=== PATIENT | male | born 1950 | race African-American/Black ===

== ENCOUNTER 2020-06-11 07:43 | Inpatient (IN) | payer MEDICARE, OTHER ==
[2020-06-11] MEDS ORDERED: hydrALAZINE 20 MG/ML VIAL ONE (08:29)
[2020-06-11 08:30] LABS: #Eosinphils 0.1 thou/uL (0.0-0.7); #Lymphocytes 0.8 thou/uL (1.20-3.40); #Monocytes 0.4 thou/uL (0.11-0.59); #Neutrophils 4.3 thou/uL (1.40-6.50); %Basophils 0.8 % (0.0-1.0); %Eosinophils 1.3 % (0.0-10.0); %Lymphocytes 13.9 % (21.0-51.0); %Monocytes 7.8 % (0.0-10.0); %Neutrophils 76.2 % (42.0-75.0); Hemoglobin 13.2 g/dL (14.0-18.0); Mean Corpuscular HGB CONC 33.4 g/dL (32.0-36.0); Mean Corpuscular Hemoglobin 29.6 pg (27.0-31.0); Mean Corpuscular Volume 88.7 fL (78.0-98.0); Mean Platelet Volume 9.7 fL (7.4-10.4); Platelet Count 170 thou/uL (130-400); RBC Distribution Width 15.5 % (11.5-14.5); Red Blood Cell (RBC) Count 4.47 mill/uL (4.70-6.10); White Blood Cell (WBC) Count 5.6 thou/uL (4.8-10.8)
[2020-06-11 08:34] LABS: Prothrombin Time 13.7 sec (12.0-14.7)
[2020-06-11 08:35] LABS: PTT 40.8 sec (22.9-36.1)
[2020-06-11 08:48] LABS: ALT (SGPT) 13 U/L (8-55); AST (SGOT) 19 U/L (5-34); Albumin 4.1 g/dL (3.4-4.8); Alkaline Phosphatase 101 U/L (40-110); Anion Gap 13 mmol/L (10-20); BUN (Urea Nitrogen) 50 mg/dL (8.4-25.7); Bilirubin, Total 0.4 mg/dL (0.2-1.2); Calc. Creatinine Clearance 0 mL/min (70-130); Calcium 8.8 mg/dL (7.8-10.44); Carbon Dioxide 20 mmol/L (23-31); Chloride 112 mmol/L (98-107); Globulin 3.2 g/dL (2.4-3.5); Glucose 89 mg/dL (80-115); Potassium 4.4 mmol/L (3.5-5.1); Protein, Total 7.3 g/dL (5.8-8.1); Sodium 141 mmol/L (136-145)
[2020-06-11 09:10] LABS: CKMB 1.5 ng/mL (0-6.6)
[2020-06-11] MEDS ORDERED: Aspirin Chewable 81 MG TAB ONE (10:11)
[2020-06-11] MEDS ORDERED: Bisacodyl 10 MG SUPP PR PRN (11:25)
[2020-06-11] MEDS ORDERED: Ondansetron PF 4 MG/2 ML Vial IVP PRN (11:25)
[2020-06-11] MEDS ORDERED: Guaifenesin DM 100-10/5 ML UDCUP PO PRN (11:25)
[2020-06-11] MEDS ORDERED: Ondansetron ODT 4 MG TAB PO PRN (11:25)
[2020-06-11] MEDS ORDERED: Senokot S 8.6-50 MG TAB PO PRN (11:25)
[2020-06-11] MEDS ORDERED: Acetaminophen 325 MG TAB PO PRN (11:25)
[2020-06-11] MEDS ORDERED: Loperamide HCl 2 MG CAP PO PRN (11:25)
[2020-06-11] MEDS ORDERED: Calcium Carbonate 500 MG ChewTAB PO PRN (11:25)
[2020-06-11 12:28] LABS: Troponin I 0.025 ng/mL (< 0.028)
[2020-06-11 14:11] VITALS: BMI 20.3
[2020-06-11 14:31] LABS: Bacteria/HPF None Seen HPF (None Seen); Bilirubin Negative (Negative); Blood, Urine Negative (Negative); Clarity Clear (Clear); Glucose, Urine (Dipstick) 500 mg/dL (Negative); Ketone, Urine Negative (Negative); Leukocyte Negative Leu/uL (Negative); Nitrite Negative (Negative); Protein, Urine (Dipstick) 30 mg/dL (Neg-Trace); RBC/HPF 0-3 HPF (0-3); Squamous Epithelial 0-3 HPF (0-3); Urobilinogen Normal mg/dL (Less than 2); WBC/HPF 0-3 HPF (0-3); pH, Urine 6.5 (5.0-9.0)
[2020-06-11 14:41] LABS: Amphetamine Not Detected (NotDetected); Barbiturates Screen Not Detected (NotDetected); Benzodiazepine Screen Not Detected (NotDetected); Cocaine Metabolite Screen Detected (NotDetected); Medtox Control Line Valid? VALID (VALID); Medtox Reader # READER 4; Methadone Not Detected (NotDetected); Methamphetamine Not Detected (NotDetected); Opiate Screen Not Detected (NotDetected); Oxycodone Screen Not Detected (NotDetected); Phencyclidine (PCP) Not Detected (NotDetected); THC/Cannabinoid Screen Not Detected (NotDetected); Tricyclic Screen Not Detected (NotDetected)
[2020-06-11 17:05] LABS: SARS-CoV-2 PCR by NAA Not Detected (NotDetected)
[2020-06-11] MEDS: Sodium Bicarbonate Tab 325 MG TAB PO SCH (20:31)
[2020-06-11] MEDS: Heparin 5,000 UNITS/ML VIAL SC SCH (20:32)
[2020-06-11] MEDS ORDERED: Atorvastatin Calcium 40 MG TAB PO SCH (21:00)
[2020-06-12 05:04] LABS: #Eosinphils 0.1 thou/uL (0.0-0.7); #Lymphocytes 0.8 thou/uL (1.20-3.40); #Monocytes 0.5 thou/uL (0.11-0.59); #Neutrophils 3.7 thou/uL (1.40-6.50); %Basophils 0.7 % (0.0-1.0); %Eosinophils 1.8 % (0.0-10.0); %Lymphocytes 15.2 % (21.0-51.0); %Monocytes 9.6 % (0.0-10.0); %Neutrophils 72.8 % (42.0-75.0); Hemoglobin 12.1 g/dL (14.0-18.0); Mean Corpuscular HGB CONC 32.1 g/dL (32.0-36.0); Mean Corpuscular Hemoglobin 28.7 pg (27.0-31.0); Mean Corpuscular Volume 89.3 fL (78.0-98.0); Mean Platelet Volume 9.6 fL (7.4-10.4); Platelet Count 176 thou/uL (130-400); RBC Distribution Width 15.5 % (11.5-14.5)
[2020-06-12 05:26] LABS: ALT (SGPT) 14 U/L (8-55); AST (SGOT) 15 U/L (5-34); Albumin 3.7 g/dL (3.4-4.8); Alkaline Phosphatase 89 U/L (40-110); Anion Gap 11 mmol/L (10-20); BUN (Urea Nitrogen) 39 mg/dL (8.4-25.7); Bilirubin, Total 0.4 mg/dL (0.2-1.2); Calc. Creatinine Clearance 26 mL/min (70-130); Calcium 8.1 mg/dL (7.8-10.44); Carbon Dioxide 20 mmol/L (23-31); Cardiac Risk 3.6 (Less than 4.5); Chloride 110 mmol/L (98-107); Cholesterol 167 mg/dl (< 200 Desired); Glucose 79 mg/dL (80-115); HDL Cholesterol 46 mg/dL (>60 Neg Risk); LDL Cholesterol, Calculated 106 mg/dL; Potassium 4.2 mmol/L (3.5-5.1); Protein, Total 6.7 g/dL (5.8-8.1); Sodium 137 mmol/L (136-145); Triglycerides 75 mg/dL (Less than 150)
[2020-06-12 05:43] LABS: Syphilis Antibody Nonreactive (Nonreactive); Syphilis Antibody Index 0.05 S/CO (<1.00 Non-Reactive)
[2020-06-12] MEDS ORDERED: Aspirin 325 mg Enteric Coated Tablet PO SCH (09:00)
[2020-06-12] MEDS ORDERED: FLU VACC QS2020-21(65YR UP)/PF 240 MCG/0.7 ML SYRINGE IM ONE (09:00)
[2020-06-12] MEDS: Amlodipine 5 MG TAB PO SCH (09:11)
[2020-06-12] MEDS: Heparin 5,000 UNITS/ML VIAL SC SCH ×2 (09:12→21:08)
[2020-06-12] MEDS: Sodium Bicarbonate Tab 325 MG TAB PO SCH ×2 (09:12→21:09)
[2020-06-12] MEDS: Zolpidem Tartrate 5 MG TAB PO PRN (21:00)
[2020-06-12] MEDS: Atorvastatin Calcium 40 MG TAB PO SCH (21:09)
[2020-06-13] MEDS: Heparin 5,000 UNITS/ML VIAL SC SCH ×2 (09:33→22:35)
[2020-06-13] MEDS: Amlodipine 5 MG TAB PO SCH (09:33)
[2020-06-13] MEDS: Aspirin 81 mg Enteric Coated Tablet PO SCH (09:33)
[2020-06-13] MEDS: Clopidogrel Bisulfate 75 MG TAB PO SCH (09:33)
[2020-06-13] MEDS: Sodium Bicarbonate Tab 325 MG TAB PO SCH ×2 (09:33→22:35)
[2020-06-13] MEDS: Atorvastatin Calcium 40 MG TAB PO SCH (22:35)
[2020-06-13] MEDS: HYDROcodone/Acetaminophen 5/325 mg Tablet PO PRN (22:40)
[2020-06-13] MEDS: Zolpidem Tartrate 5 MG TAB PO PRN (23:47)
[2020-06-14] MEDS: Aspirin 81 mg Enteric Coated Tablet PO SCH (09:33)
[2020-06-14] MEDS: Sodium Bicarbonate Tab 325 MG TAB PO SCH ×2 (09:33→20:22)
[2020-06-14] MEDS: Amlodipine 5 MG TAB PO SCH (09:33)
[2020-06-14] MEDS: Clopidogrel Bisulfate 75 MG TAB PO SCH (09:33)
[2020-06-14] MEDS: Heparin 5,000 UNITS/ML VIAL SC SCH ×2 (09:34→20:22)
[2020-06-14] MEDS: hydrALAZINE 20 MG/ML VIAL SLOW IVP PRN (15:27)
[2020-06-14] MEDS: HYDROcodone/Acetaminophen 5/325 mg Tablet PO PRN (20:21)
[2020-06-14] MEDS: Atorvastatin Calcium 40 MG TAB PO SCH (20:22)
[2020-06-15] MEDS: Aspirin 81 mg Enteric Coated Tablet PO SCH (09:04)
[2020-06-15] MEDS: Amlodipine 5 MG TAB PO SCH (09:04)
[2020-06-15] MEDS: Sodium Bicarbonate Tab 325 MG TAB PO SCH (09:05)
[2020-06-15] MEDS: Heparin 5,000 UNITS/ML VIAL SC SCH (09:05)
[2020-06-15] MEDS: Clopidogrel Bisulfate 75 MG TAB PO SCH (09:05)
[2020-06-15 15:31] VITALS: TEMP 98.4
[2020-06-15] MEDS: hydrALAZINE 20 MG/ML VIAL SLOW IVP PRN (15:53)
[2020-06-15 15:58] VITALS: BP 166/87
== END 2020-06-15 18:30 | disposition home health service (06) | DRG 65 ==
LOC: ERS 07:43 → ERHOLD 10:39 → 2SE 13:45
PROVIDERS: ADMIT Internal Medicine; ATTEND Internal Medicine
DX: I63.9 Cerebral infarction, unspecified (principal); G81.91 Hemiplegia, unspecified affecting right dominant side; N18.4 Chronic kidney disease, stage 4 (severe); I24.8 Other forms of acute ischemic heart disease; I12.9 Hypertensive chronic kidney disease with stage 1 through stage 4 chronic kidney disease, or unspecified chronic kidney disease; M19.90 Unspecified osteoarthritis, unspecified site; F17.210 Nicotine dependence, cigarettes, uncomplicated; E78.5 Hyperlipidemia, unspecified; Z20.822 Contact with and (suspected) exposure to COVID-19; F14.10 Cocaine abuse, uncomplicated; Z71.51 Drug abuse counseling and surveillance of drug abuser
CPT/HCPCS: 36415; 36416; 70450; 70551; 80053; 80061; 80306; 81001; 82553; 83090; 83970; 84484; 85025; 85610; 85730; 86780; 87635; 93005; 93306; 93880; 96374; J0360; J1644; U0003; U0005

== ENCOUNTER 2020-08-10 14:25 | Inpatient (IN) | payer MEDICARE, MEDICAID ==
[2020-08-10 15:21] LABS: #Eosinphils 0.1 thou/uL (0.0-0.7); #Lymphocytes 0.9 thou/uL (1.20-3.40); #Monocytes 0.4 thou/uL (0.11-0.59); #Neutrophils 3.9 thou/uL (1.40-6.50); %Basophils 0.4 % (0.0-1.0); %Eosinophils 1.4 % (0.0-10.0); %Lymphocytes 16.4 % (21.0-51.0); %Neutrophils 73.7 % (42.0-75.0); Hemoglobin 12.3 g/dL (14.0-18.0); Mean Corpuscular HGB CONC 32.6 g/dL (32.0-36.0); Mean Corpuscular Hemoglobin 28.6 pg (27.0-31.0); Mean Corpuscular Volume 87.6 fL (78.0-98.0); Platelet Count 182 thou/uL (130-400); RBC Distribution Width 14.4 % (11.5-14.5); Red Blood Cell (RBC) Count 4.29 mill/uL (4.70-6.10); White Blood Cell (WBC) Count 5.3 thou/uL (4.8-10.8)
[2020-08-10 15:36] LABS: PTT 41.8 sec (22.9-36.1); Prothrombin Time 13.4 sec (12.0-14.7)
[2020-08-10 15:39] LABS: Acetaminophen Less than 6.0 mcg/mL (10.0-30.0); Alcohol Less than 10 mg/dL (Less than 10); Salicylate Less than 8.0 mg/dL (15.0-30.0)
[2020-08-10 15:43] LABS: ALT (SGPT) 12 U/L (8-55); AST (SGOT) 16 U/L (5-34); Albumin 4.1 g/dL (3.4-4.8); Alkaline Phosphatase 113 U/L (40-110); Anion Gap 13 mmol/L (10-20); BUN (Urea Nitrogen) 27 mg/dL (8.4-25.7); Bilirubin, Total 0.5 mg/dL (0.2-1.2); CK (CPK) 80 U/L (30-200); Calc. Creatinine Clearance 0 mL/min (70-130); Calcium 9.1 mg/dL (7.8-10.44); Carbon Dioxide 23 mmol/L (23-31); Chloride 109 mmol/L (98-107); Globulin 2.8 g/dL (2.4-3.5); Glucose 99 mg/dL (80-115); Lipase 71 U/L (8-78); Potassium 4.3 mmol/L (3.5-5.1); Protein, Total 6.9 g/dL (5.8-8.1); Sodium 141 mmol/L (136-145)
[2020-08-10 15:57] LABS: Bacteria/HPF None Seen HPF (None Seen); Bilirubin Negative (Negative); Blood, Urine Negative (Negative); Clarity Clear (Clear); Glucose, Urine (Dipstick) Normal (Negative); Ketone, Urine Negative (Negative); Leukocyte Negative Leu/uL (Negative); Nitrite Negative (Negative); Protein, Urine (Dipstick) 30 mg/dL (Neg-Trace); RBC/HPF 0-3 HPF (0-3); Specific Gravity, Urine 1.022 (1.002-1.036); Squamous Epithelial 0-3 HPF (0-3); Urobilinogen Normal mg/dL (Less than 2); WBC/HPF 0-3 HPF (0-3)
[2020-08-10 16:04] LABS: Amphetamine Not Detected (NotDetected); Barbiturates Screen Not Detected (NotDetected); Benzodiazepine Screen Not Detected (NotDetected); Cocaine Metabolite Screen Detected (NotDetected); Medtox Reader # READER 1; Methadone Not Detected (NotDetected); Methamphetamine Not Detected (NotDetected); Opiate Screen Not Detected (NotDetected); Oxycodone Screen Not Detected (NotDetected); Phencyclidine (PCP) Not Detected (NotDetected); THC/Cannabinoid Screen Not Detected (NotDetected); Tricyclic Screen Not Detected (NotDetected)
[2020-08-10 16:05] LABS: Medtox Control Line Valid? VALID (VALID)
[2020-08-10] MEDS ORDERED: hydrALAZINE 20 MG/ML VIAL SLOW IVP PRN (18:17)
[2020-08-10 20:35] VITALS: BMI 19.7
[2020-08-10] MEDS: Nicotine 21 MG PATCH TD SCH (23:26)
[2020-08-10] MEDS: Sodium Chloride 0.9% 1,000 ML IV SCH (23:45)
[2020-08-11 00:49] LABS: SARS-CoV-2 NAA Rapid Test Not Detected (NotDetected)
[2020-08-11 05:46] LABS: Eosinophils 2 % (0-10); Hemoglobin 11.8 g/dL (14.0-18.0); Lymphocytes 17 % (21-51); MDiff Complete? YES; Mean Corpuscular HGB CONC 33.1 g/dL (32.0-36.0); Mean Corpuscular Hemoglobin 29.1 pg (27.0-31.0); Mean Corpuscular Volume 87.8 fL (78.0-98.0); Monocytes 3 % (0-10); Neutrophil 78 % (42-75); Platelet Count 158 thou/uL (130-400); Platelet Morphology Comment Appears Adequate; RBC Distribution Width 14.3 % (11.5-14.5); Red Blood Cell (RBC) Count 4.07 mill/uL (4.70-6.10)
[2020-08-11 05:51] LABS: Anion Gap 11 mmol/L (10-20); BUN (Urea Nitrogen) 19 mg/dL (8.4-25.7); Calc. Creatinine Clearance 31 mL/min (70-130); Calcium 8.9 mg/dL (7.8-10.44); Carbon Dioxide 24 mmol/L (23-31); Cardiac Risk 3.4 (Less than 4.5); Chloride 108 mmol/L (98-107); Cholesterol 150 mg/dl (< 200 Desired); Glucose 79 mg/dL (80-115); HDL Cholesterol 44 mg/dL (>60 Neg Risk); LDL Cholesterol, Calculated 90 mg/dL; Potassium 4.2 mmol/L (3.5-5.1); Sodium 139 mmol/L (136-145); Triglycerides 80 mg/dL (Less than 150)
[2020-08-11] MEDS: Cyanocobalamin (Vitamin B-12) 1,000 MCG TAB PO SCH (08:24)
[2020-08-11] MEDS: Aspirin 81 mg Enteric Coated Tablet PO SCH (08:24)
[2020-08-11] MEDS: Clopidogrel Bisulfate 75 MG TAB PO SCH (08:24)
[2020-08-11] MEDS: Folic Acid 1 MG TAB PO SCH (08:24)
[2020-08-11] MEDS: Sodium Chloride 0.9% 1,000 ML IV SCH (14:22)
[2020-08-11] MEDS: Nicotine 21 MG PATCH TD SCH (21:00)
[2020-08-12] MEDS: Sodium Chloride 0.9% 1,000 ML IV SCH ×2 (02:34→16:29)
[2020-08-12] MEDS: Aspirin 81 mg Enteric Coated Tablet PO SCH (09:41)
[2020-08-12] MEDS: Cyanocobalamin (Vitamin B-12) 1,000 MCG TAB PO SCH (09:42)
[2020-08-12] MEDS: Folic Acid 1 MG TAB PO SCH (09:42)
[2020-08-12] MEDS: Clopidogrel Bisulfate 75 MG TAB PO SCH (09:42)
[2020-08-12] MEDS: Amlodipine 10 MG TAB PO SCH (09:42)
[2020-08-12] MEDS: Atorvastatin Calcium 40 MG TAB PO SCH (21:31)
[2020-08-12] MEDS: Nicotine 21 MG PATCH TD SCH (21:31)
[2020-08-13] MEDS: Sodium Chloride 0.9% 1,000 ML IV SCH (05:18)
[2020-08-13 06:11] LABS: Anion Gap 9 mmol/L (10-20); BUN (Urea Nitrogen) 12 mg/dL (8.4-25.7); Calc. Creatinine Clearance 42 mL/min (70-130); Calcium 8.9 mg/dL (7.8-10.44); Carbon Dioxide 23 mmol/L (23-31); Chloride 110 mmol/L (98-107); Glucose 86 mg/dL (80-115); Magnesium 1.7 mg/dL (1.6-2.6); Potassium 3.7 mmol/L (3.5-5.1); Sodium 138 mmol/L (136-145)
[2020-08-13] MEDS: Clopidogrel Bisulfate 75 MG TAB PO SCH (09:43)
[2020-08-13] MEDS: Cyanocobalamin (Vitamin B-12) 1,000 MCG TAB PO SCH (09:43)
[2020-08-13] MEDS: Aspirin 81 mg Enteric Coated Tablet PO SCH (09:43)
[2020-08-13] MEDS: Amlodipine 10 MG TAB PO SCH (09:43)
[2020-08-13] MEDS: Folic Acid 1 MG TAB PO SCH (09:44)
[2020-08-13] MEDS: Atorvastatin Calcium 40 MG TAB PO SCH (19:45)
[2020-08-13] MEDS: Nicotine 21 MG PATCH TD SCH (19:45)
[2020-08-14] MEDS: Cyanocobalamin (Vitamin B-12) 1,000 MCG TAB PO SCH (09:26)
[2020-08-14] MEDS: Clopidogrel Bisulfate 75 MG TAB PO SCH (09:26)
[2020-08-14] MEDS: Amlodipine 10 MG TAB PO SCH (09:26)
[2020-08-14] MEDS: Aspirin 81 mg Enteric Coated Tablet PO SCH (09:26)
[2020-08-14] MEDS: Folic Acid 1 MG TAB PO SCH (09:27)
[2020-08-14] MEDS: Nicotine 21 MG PATCH TD SCH (20:00)
[2020-08-14] MEDS: Atorvastatin Calcium 40 MG TAB PO SCH (20:00)
[2020-08-15] MEDS: Aspirin 81 mg Enteric Coated Tablet PO SCH (09:13)
[2020-08-15] MEDS: Clopidogrel Bisulfate 75 MG TAB PO SCH (09:13)
[2020-08-15] MEDS: Folic Acid 1 MG TAB PO SCH (09:13)
[2020-08-15] MEDS: Cyanocobalamin (Vitamin B-12) 1,000 MCG TAB PO SCH (09:14)
[2020-08-15] MEDS: Amlodipine 10 MG TAB PO SCH (09:14)
[2020-08-15 16:14] VITALS: BP 120/79; TEMP 97.4
== END 2020-08-15 15:30 | disposition home health service (06) | DRG 917 ==
LOC: ERS 14:25 → 2SE 17:21
PROVIDERS: ADMIT Internal Medicine; ATTEND Internal Medicine
DX: T40.5X1A Poisoning by cocaine, accidental (unintentional), initial encounter (principal); I63.9 Cerebral infarction, unspecified; N18.4 Chronic kidney disease, stage 4 (severe); Z20.822 Contact with and (suspected) exposure to COVID-19; G81.11 Spastic hemiplegia affecting right dominant side; N17.9 Acute kidney failure, unspecified; R47.01 Aphasia; I12.9 Hypertensive chronic kidney disease with stage 1 through stage 4 chronic kidney disease, or unspecified chronic kidney disease; E78.00 Pure hypercholesterolemia, unspecified; M19.90 Unspecified osteoarthritis, unspecified site; F17.210 Nicotine dependence, cigarettes, uncomplicated; F14.10 Cocaine abuse, uncomplicated; E78.5 Hyperlipidemia, unspecified; W18.30XA Fall on same level, unspecified, initial encounter; R29.706 NIHSS score 6; M25.511 Pain in right shoulder; I16.0 Hypertensive urgency; R41.82 Altered mental status, unspecified; Z86.73 Personal history of transient ischemic attack (TIA), and cerebral infarction without residual deficits; Z79.01 Long term (current) use of anticoagulants; Z79.52 Long term (current) use of systemic steroids; Z79.899 Other long term (current) drug therapy
CPT/HCPCS: 36415; 36416; 51701; 70450; 70551; 71045; 80048; 80053; 80061; 80306; 80307; 81003; 81015; 82140; 82550; 83690; 83735; 83880; 84484; 85007; 85025; 85027; 85610; 85730; 93005; 93306; 93880; 95712; 95819; 95957; J0360; U0002; U0005

== ENCOUNTER 2020-11-02 13:32 | Inpatient (IN) | payer MEDICARE, MEDICAID ==
[~2020-11-02 13:32] MED LIST: Iopamidol-370 76% 500 ML 1 ML ONE
[2020-11-02 13:56] LABS: #Eosinphils 0.1 thou/uL (0.0-0.7); #Lymphocytes 0.8 thou/uL (1.20-3.40); #Monocytes 0.4 thou/uL (0.11-0.59); #Neutrophils 5.4 thou/uL (1.40-6.50); %Basophils 0.6 % (0.0-1.0); %Eosinophils 1.2 % (0.0-10.0); %Lymphocytes 11.9 % (21.0-51.0); %Monocytes 6.4 % (0.0-10.0); %Neutrophils 79.8 % (42.0-75.0); Hemoglobin 12.6 g/dL (14.0-18.0); Mean Corpuscular HGB CONC 33.3 g/dL (32.0-36.0); Mean Corpuscular Hemoglobin 28.5 pg (27.0-31.0); Mean Corpuscular Volume 85.7 fL (78.0-98.0); Mean Platelet Volume 10.1 fL (7.4-10.4); Platelet Count 138 thou/uL (130-400); RBC Distribution Width 15.8 % (11.5-14.5); Red Blood Cell (RBC) Count 4.43 mill/uL (4.70-6.10); White Blood Cell (WBC) Count 6.8 thou/uL (4.8-10.8)
[2020-11-02] MEDS ORDERED: EPINEPHrine 1 MG/ML VIAL ONE (14:00)
[2020-11-02 14:10] LABS: ALT (SGPT) 9 U/L (8-55); AST (SGOT) 13 U/L (5-34); Albumin 3.8 g/dL (3.4-4.8); Alkaline Phosphatase 102 U/L (40-110); Anion Gap 12 mmol/L (10-20); BUN (Urea Nitrogen) 22 mg/dL (8.4-25.7); Bilirubin, Total 0.4 mg/dL (0.2-1.2); Calc. Creatinine Clearance 0 mL/min (70-130); Calcium 9.2 mg/dL (7.8-10.44); Carbon Dioxide 23 mmol/L (23-31); Chloride 106 mmol/L (98-107); Globulin 3.3 g/dL (2.4-3.5); Glucose 95 mg/dL (80-115); Potassium 3.9 mmol/L (3.5-5.1); Protein, Total 7.1 g/dL (5.8-8.1); Sodium 137 mmol/L (136-145)
[2020-11-02 14:11] LABS: Acetaminophen Less than 6.0 mcg/mL (10.0-30.0); Alcohol Less than 10 mg/dL (Less than 10); Salicylate Less than 8.0 mg/dL (15.0-30.0)
[2020-11-02 14:37] LABS: Actual Bicarbonate (HCO3v) 22 mEq/L (22-28); Base Excess -2.3 mEq/L (-2.0 to +3.0); Calcium, Ionized (venous) 1.05 mmol/L (1.16-1.32); Chloride (VBG) 108 mmol/L (98-106); Hemoglobin (Hb) 13.7 g/dL (12.6-17.4); Potassium (VBG) 3.94 mmol/L (3.70-5.30); Sodium 136.9 mmol/L (133-146); pH (venous) 7.39 (7.32-7.43)
[2020-11-02 14:54] LABS: Bacteria/HPF None Seen HPF (None Seen); Bilirubin Negative (Negative); Blood, Urine Negative (Negative); Clarity Clear (Clear); Glucose, Urine (Dipstick) Normal (Negative); Ketone, Urine Negative (Negative); Leukocyte Negative Leu/uL (Negative); Nitrite Negative (Negative); Protein, Urine (Dipstick) 30 mg/dL (Neg-Trace); RBC/HPF 0-3 HPF (0-3); Specific Gravity, Urine 1.018 (1.002-1.036); Squamous Epithelial None Seen HPF (0-3); Urobilinogen Normal mg/dL (Less than 2); WBC/HPF 0-3 HPF (0-3)
[2020-11-02] MEDS ORDERED: Aspirin 300 MG Suppository ONE (14:54)
[2020-11-02 15:10] LABS: Amphetamine Not Detected (NotDetected); Barbiturates Screen Not Detected (NotDetected); Benzodiazepine Screen Not Detected (NotDetected); Cocaine Metabolite Screen Detected (NotDetected); Methadone Not Detected (NotDetected); Methamphetamine Not Detected (NotDetected); Opiate Screen Not Detected (NotDetected); Oxycodone Screen Not Detected (NotDetected); Phencyclidine (PCP) Not Detected (NotDetected); THC/Cannabinoid Screen Not Detected (NotDetected); Tricyclic Screen Not Detected (NotDetected)
[2020-11-02 17:24] LABS: SARS-CoV-2 NAA Rapid Test Not Detected (NotDetected)
[2020-11-02] MEDS ORDERED: Acetaminophen 650 MG Suppository PR PRN (17:49)
[2020-11-02] MEDS ORDERED: Bisacodyl 5 MG TAB PO PRN (17:49)
[2020-11-02] MEDS ORDERED: Senokot S 8.6-50 MG TAB PO PRN (17:49)
[2020-11-02] MEDS ORDERED: Ondansetron PF 4 MG/2 ML Vial IVP PRN (17:49)
[2020-11-02] MEDS ORDERED: hydrALAZINE 20 MG/ML VIAL SLOW IVP PRN (17:49)
[2020-11-02] MEDS: Sodium Chloride 0.9% 1,000 ML IV SCH (20:28)
[2020-11-02] MEDS: Heparin 5,000 UNITS/ML VIAL SC SCH (20:29)
[2020-11-02] MEDS: Atorvastatin Calcium 40 MG TAB PO SCH (21:16)
[2020-11-03] MEDS ORDERED: Dextrose 50% Abboject 50 ML SYRINGE SLOW IVP PRN ×2 (01:37→02:09)
[2020-11-03] MEDS ORDERED: Dextrose 5% in Water 1,000 ML IV PRN (01:37)
[2020-11-03 05:11] LABS: #Eosinphils 0.2 thou/uL (0.0-0.7); #Lymphocytes 0.9 thou/uL (1.20-3.40); #Monocytes 0.5 thou/uL (0.11-0.59); #Neutrophils 3.7 thou/uL (1.40-6.50); %Basophils 0.6 % (0.0-1.0); %Eosinophils 3.2 % (0.0-10.0); %Lymphocytes 16.5 % (21.0-51.0); %Monocytes 9.2 % (0.0-10.0); %Neutrophils 70.6 % (42.0-75.0); Hemoglobin 12.6 g/dL (14.0-18.0); Mean Corpuscular HGB CONC 33.9 g/dL (32.0-36.0); Mean Corpuscular Hemoglobin 28.9 pg (27.0-31.0); Mean Corpuscular Volume 85.2 fL (78.0-98.0); Mean Platelet Volume 10.3 fL (7.4-10.4); Platelet Count 165 thou/uL (130-400); RBC Distribution Width 15.8 % (11.5-14.5); Red Blood Cell (RBC) Count 4.36 mill/uL (4.70-6.10); White Blood Cell (WBC) Count 5.3 thou/uL (4.8-10.8)
[2020-11-03] MEDS: Sodium Chloride 0.9% 1,000 ML IV SCH ×2 (05:42→16:52)
[2020-11-03 05:43] LABS: Anion Gap 11 mmol/L (10-20); BUN (Urea Nitrogen) 15 mg/dL (8.4-25.7); Calc. Creatinine Clearance 30 mL/min (70-130); Calcium 8.8 mg/dL (7.8-10.44); Carbon Dioxide 21 mmol/L (23-31); Cardiac Risk 3.7 (Less than 4.5); Chloride 109 mmol/L (98-107); Cholesterol 163 mg/dl (< 200 Desired); Glucose 118 mg/dL (80-115); HDL Cholesterol 44 mg/dL (>60 Neg Risk); LDL Cholesterol, Calculated 104 mg/dL; Magnesium 2.2 mg/dL (1.6-2.6); Potassium 4.1 mmol/L (3.5-5.1); Sodium 137 mmol/L (136-145); Triglycerides 75 mg/dL (Less than 150)
[2020-11-03] MEDS ORDERED: Aspirin 81 mg Enteric Coated Tablet PO SCH (09:00)
[2020-11-03] MEDS: Heparin 5,000 UNITS/ML VIAL SC SCH ×2 (09:27→20:30)
[2020-11-03] MEDS: Dextrose 5 % And 0.9 % NaCl 1,000 ML IV SCH (17:01)
[2020-11-03] MEDS: Atorvastatin Calcium 40 MG TAB PO SCH (20:29)
[2020-11-04] MEDS: Sodium Chloride 0.9% 1,000 ML IV SCH ×2 (01:28→12:35)
[2020-11-04] MEDS: Heparin 5,000 UNITS/ML VIAL SC SCH ×2 (08:26→21:53)
[2020-11-04] MEDS: Aspirin 300 MG Suppository PR SCH (08:26)
[2020-11-04 10:23] LABS: Anion Gap 12 mmol/L (10-20); BUN (Urea Nitrogen) 14 mg/dL (8.4-25.7); Calc. Creatinine Clearance 31 mL/min (70-130); Calcium 9.1 mg/dL (7.8-10.44); Carbon Dioxide 20 mmol/L (23-31); Chloride 108 mmol/L (98-107); Glucose 103 mg/dL (80-115); Potassium 3.8 mmol/L (3.5-5.1); Sodium 136 mmol/L (136-145)
[2020-11-04] MEDS: Dextrose 5 % And 0.9 % NaCl 1,000 ML IV SCH (12:34)
[2020-11-05] MEDS: Atorvastatin Calcium 40 MG TAB PO SCH ×2 (04:20→21:14)
[2020-11-05] MEDS: Dextrose 5 % And 0.9 % NaCl 1,000 ML IV SCH (08:45)
[2020-11-05] MEDS: Aspirin 300 MG Suppository PR SCH (08:45)
[2020-11-05] MEDS: Cyanocobalamin (Vitamin B-12) 1,000 MCG TAB PO SCH (08:49)
[2020-11-05] MEDS: Folic Acid 1 MG TAB PO SCH (08:50)
[2020-11-05] MEDS: Lisinopril 10 MG TAB PO SCH ×3 (08:50→21:14)
[2020-11-05] MEDS ORDERED: Enoxaparin Sodium 40 MG/0.4 ML SYRINGE SC SCH (09:00)
[2020-11-05] MEDS ORDERED: Heparin 5,000 UNITS/ML VIAL SC SCH (09:00)
[2020-11-05] MEDS: Enoxaparin Sodium 40 MG/0.4 ML SYRINGE SC SCH (21:13)
[2020-11-06] MEDS: hydrALAZINE 20 MG/ML VIAL SLOW IVP PRN (00:53)
[2020-11-06] MEDS: Dextrose 5 % And 0.9 % NaCl 1,000 ML IV SCH ×2 (03:07→23:45)
[2020-11-06 04:56] LABS: #Eosinphils 0.1 thou/uL (0.0-0.7); #Lymphocytes 0.7 thou/uL (1.20-3.40); #Monocytes 0.3 thou/uL (0.11-0.59); #Neutrophils 2.3 thou/uL (1.40-6.50); %Basophils 0.7 % (0.0-1.0); %Eosinophils 3.2 % (0.0-10.0); %Lymphocytes 19.3 % (21.0-51.0); %Monocytes 9.5 % (0.0-10.0); %Neutrophils 67.4 % (42.0-75.0); Hemoglobin 12.3 g/dL (14.0-18.0); Mean Corpuscular HGB CONC 31.3 g/dL (32.0-36.0); Mean Corpuscular Hemoglobin 26.4 pg (27.0-31.0); Mean Corpuscular Volume 84.3 fL (78.0-98.0); Mean Platelet Volume 10.3 fL (7.4-10.4); Platelet Count 149 thou/uL (130-400); RBC Distribution Width 15.5 % (11.5-14.5); Red Blood Cell (RBC) Count 4.66 mill/uL (4.70-6.10); White Blood Cell (WBC) Count 3.5 thou/uL (4.8-10.8)
[2020-11-06 05:21] LABS: ALT (SGPT) 14 U/L (8-55); AST (SGOT) 22 U/L (5-34); Albumin 3.3 g/dL (3.4-4.8); Alkaline Phosphatase 90 U/L (40-110); Anion Gap 12 mmol/L (10-20); BUN (Urea Nitrogen) 15 mg/dL (8.4-25.7); Bilirubin, Total 0.5 mg/dL (0.2-1.2); Calc. Creatinine Clearance 32 mL/min (70-130); Carbon Dioxide 20 mmol/L (23-31); Chloride 110 mmol/L (98-107); Globulin 3.1 g/dL (2.4-3.5); Glucose 99 mg/dL (80-115); Potassium 3.7 mmol/L (3.5-5.1); Protein, Total 6.4 g/dL (5.8-8.1); Sodium 138 mmol/L (136-145)
[2020-11-06] MEDS: Aspirin 300 MG Suppository PR SCH (09:04)
[2020-11-06] MEDS: Folic Acid 1 MG TAB PO SCH (09:05)
[2020-11-06] MEDS: Lisinopril 10 MG TAB PO SCH (09:05)
[2020-11-06] MEDS: Cyanocobalamin (Vitamin B-12) 1,000 MCG TAB PO SCH (09:05)
[2020-11-06] MEDS: Clopidogrel Bisulfate 75 MG TAB PO SCH (09:05)
[2020-11-06] MEDS: Atorvastatin Calcium 40 MG TAB PO SCH (21:02)
[2020-11-06] MEDS: Enoxaparin Sodium 40 MG/0.4 ML SYRINGE SC SCH (21:02)
[2020-11-06] MEDS: Lisinopril 20 MG TAB PO SCH (21:03)
[2020-11-07] MEDS ORDERED: Senokot S 8.6-50 MG TAB PER TUBE PRN (09:00)
[2020-11-07] MEDS: Aspirin 300 MG Suppository PR SCH (11:32)
[2020-11-07] MEDS: Lisinopril 20 MG TAB PO SCH (11:36)
[2020-11-07] MEDS: Folic Acid 1 MG TAB PO SCH (11:37)
[2020-11-07] MEDS: Clopidogrel Bisulfate 75 MG TAB PO SCH (11:37)
[2020-11-07] MEDS: Cyanocobalamin (Vitamin B-12) 1,000 MCG TAB PO SCH (11:37)
[2020-11-07] MEDS: hydrALAZINE 20 MG/ML VIAL SLOW IVP PRN ×2 (11:46→21:54)
[2020-11-07] MEDS ORDERED: cloNIDine 0.1mg/24 Hour PATCH TD SCH (14:00)
[2020-11-07] MEDS ORDERED: ceFAZolin 2 GM/Dextrose 50 ML 2 GM in Premix Bag 1 BAG IVPB SCH (17:15)
[2020-11-07] MEDS ORDERED: Dextrose 50% Abboject 50 ML SYRINGE SLOW IVP SCH (18:45)
[2020-11-07] MEDS ORDERED: Dextrose 5%-Lactated Ringers 1,000 ML IV SCH (19:00)
[2020-11-07] MEDS ORDERED: [UNRECOGNIZED DRUG - OTHER] IV SCH (20:15)
[2020-11-07] MEDS ORDERED: DEXTROSE 70% IV SCH (20:15)
[2020-11-07] MEDS ORDERED: SODIUM CHLORIDE IV SCH ×2 (20:15→20:30)
[2020-11-07] MEDS ORDERED: WATER IV SCH ×2 (20:15→20:30)
[2020-11-07] MEDS ORDERED: DEXTROSE 10% IV SCH (20:30)
[2020-11-07] MEDS: Atorvastatin Calcium 40 MG TAB PER TUBE SCH (21:41)
[2020-11-07] MEDS: Lisinopril 20 MG TAB PER TUBE SCH (21:41)
[2020-11-07] MEDS: Enoxaparin Sodium 40 MG/0.4 ML SYRINGE SC SCH (21:43)
[2020-11-07] MEDS ORDERED: Labetalol HCl 100 MG/20 ML VIAL SLOW IVP SCH (23:27)
[2020-11-08 05:32] LABS: ALT (SGPT) 16 U/L (8-55); AST (SGOT) 26 U/L (5-34); Albumin 3.3 g/dL (3.4-4.8); Alkaline Phosphatase 93 U/L (40-110); Anion Gap 11 mmol/L (10-20); BUN (Urea Nitrogen) 9 mg/dL (8.4-25.7); Bilirubin, Total 0.4 mg/dL (0.2-1.2); Calc. Creatinine Clearance 30 mL/min (70-130); Calcium 8.6 mg/dL (7.8-10.44); Carbon Dioxide 19 mmol/L (23-31); Chloride 113 mmol/L (98-107); Globulin 2.8 g/dL (2.4-3.5); Glucose 527 mg/dL (80-115); Potassium 3.6 mmol/L (3.5-5.1); Protein, Total 6.1 g/dL (5.8-8.1); Sodium 139 mmol/L (136-145)
[2020-11-08] MEDS: hydrALAZINE 20 MG/ML VIAL SLOW IVP PRN (08:17)
[2020-11-08] MEDS ORDERED: ceFAZolin 2 GM/Dextrose 50 ML IVPB ONE (08:59)
[2020-11-08] MEDS ORDERED: Lidocaine 1% PF 5 ML VIAL ONE (09:32)
[2020-11-08] MEDS ORDERED: PROPOFOL 200 MG/20 ML VIAL ONE (09:32)
[2020-11-08] MEDS ORDERED: Ondansetron HCl/PF 4 MG/2 ML Vial IVP PRN (10:00)
[2020-11-08] MEDS ORDERED: Promethazine HCl 25 MG/ML VIAL IVPB PRN (10:00)
[2020-11-08] MEDS ORDERED: Promethazine HCl 25 MG/ML VIAL IM PRN (10:00)
[2020-11-08] MEDS: Lisinopril 20 MG TAB PER TUBE SCH ×2 (12:14→21:59)
[2020-11-08] MEDS: Folic Acid 1 MG TAB PER TUBE SCH (12:14)
[2020-11-08] MEDS: Cyanocobalamin (Vitamin B-12) 1,000 MCG TAB PER TUBE SCH (12:14)
[2020-11-08] MEDS: Clopidogrel Bisulfate 75 MG TAB PER TUBE SCH (12:15)
[2020-11-08] MEDS ORDERED: Acetaminophen 650 MG/20.3 ML UDCUP PER TUBE PRN (13:21)
[2020-11-08] MEDS: Aspirin 300 MG Suppository PR SCH (13:38)
[2020-11-08] MEDS ORDERED: Aspirin 325 MG TAB PER TUBE SCH (13:45)
[2020-11-08 14:12] VITALS: BMI 17.4
[2020-11-08 15:22] LABS: #Eosinphils 0.1 thou/uL (0.0-0.7); #Lymphocytes 0.6 thou/uL (1.20-3.40); #Monocytes 0.7 thou/uL (0.11-0.59); #Neutrophils 7.3 thou/uL (1.40-6.50); %Basophils 0.2 % (0.0-1.0); %Eosinophils 0.6 % (0.0-10.0); %Lymphocytes 6.9 % (21.0-51.0); %Monocytes 8.5 % (0.0-10.0); %Neutrophils 83.8 % (42.0-75.0); Hemoglobin 12.5 g/dL (14.0-18.0); Mean Corpuscular HGB CONC 34.3 g/dL (32.0-36.0); Mean Corpuscular Hemoglobin 28.9 pg (27.0-31.0); Mean Corpuscular Volume 84.1 fL (78.0-98.0); Mean Platelet Volume 10.4 fL (7.4-10.4); Platelet Count 125 thou/uL (130-400); RBC Distribution Width 15.1 % (11.5-14.5); Red Blood Cell (RBC) Count 4.34 mill/uL (4.70-6.10); White Blood Cell (WBC) Count 8.7 thou/uL (4.8-10.8)
[2020-11-08] MEDS: Enoxaparin Sodium 40 MG/0.4 ML SYRINGE SC SCH (21:59)
[2020-11-08] MEDS: Atorvastatin Calcium 40 MG TAB PER TUBE SCH (22:00)
[2020-11-09 05:53] LABS: #Eosinphils 0.1 thou/uL (0.0-0.7); #Lymphocytes 0.6 thou/uL (1.20-3.40); #Monocytes 0.5 thou/uL (0.11-0.59); #Neutrophils 6.2 thou/uL (1.40-6.50); %Basophils 0.2 % (0.0-1.0); %Eosinophils 1.2 % (0.0-10.0); %Lymphocytes 7.8 % (21.0-51.0); %Monocytes 7.2 % (0.0-10.0); %Neutrophils 83.5 % (42.0-75.0); Hemoglobin 11.8 g/dL (14.0-18.0); Mean Corpuscular HGB CONC 33.4 g/dL (32.0-36.0); Mean Corpuscular Hemoglobin 28.3 pg (27.0-31.0); Mean Corpuscular Volume 84.7 fL (78.0-98.0); Platelet Count 141 thou/uL (130-400); RBC Distribution Width 15.4 % (11.5-14.5); Red Blood Cell (RBC) Count 4.17 mill/uL (4.70-6.10); White Blood Cell (WBC) Count 7.5 thou/uL (4.8-10.8)
[2020-11-09] MEDS ORDERED: Aspirin 325 MG TAB PER TUBE SCH (09:00)
[2020-11-09] MEDS: Lisinopril 20 MG TAB PER TUBE SCH (10:50)
[2020-11-09] MEDS: Folic Acid 1 MG TAB PER TUBE SCH (10:54)
[2020-11-09] MEDS: Cyanocobalamin (Vitamin B-12) 1,000 MCG TAB PER TUBE SCH (10:54)
[2020-11-09] MEDS: Clopidogrel Bisulfate 75 MG TAB PER TUBE SCH (10:54)
[2020-11-09 17:03] VITALS: BP 131/79; TEMP 98
[2020-11-14] MEDS ORDERED: cloNIDine 0.1mg/24 Hour PATCH TD SCH (09:00)
== END 2020-11-09 18:30 | DRG 64 ==
LOC: ERS 13:32 → ERHOLD 15:05 → 2SE 19:16 → 3SE 11-08 13:00
PROVIDERS: ADMIT Internal Medicine; ATTEND Family Medicine
PROC: 0DH63UZ Insertion of Feeding Device into Stomach, Percutaneous Approach (ICD-10-PCS; principal; 2020-11-08)
DX: I63.512 Cerebral infarction due to unspecified occlusion or stenosis of left middle cerebral artery (principal); G92 Toxic encephalopathy; N17.9 Acute kidney failure, unspecified; E44.0 Moderate protein-calorie malnutrition; N18.4 Chronic kidney disease, stage 4 (severe); I50.30 Unspecified diastolic (congestive) heart failure; I13.0 Hypertensive heart and chronic kidney disease with heart failure and stage 1 through stage 4 chronic kidney disease, or unspecified chronic kidney disease; I69.951 Hemiplegia and hemiparesis following unspecified cerebrovascular disease affecting right dominant side; Z68.1 Body mass index [BMI] 19.9 or less, adult; I67.4 Hypertensive encephalopathy; Z20.822 Contact with and (suspected) exposure to COVID-19; R47.01 Aphasia; R29.728 NIHSS score 28; E78.5 Hyperlipidemia, unspecified; M19.90 Unspecified osteoarthritis, unspecified site; F17.210 Nicotine dependence, cigarettes, uncomplicated; F14.10 Cocaine abuse, uncomplicated; I63.312 Cerebral infarction due to thrombosis of left middle cerebral artery; R79.89 Other specified abnormal findings of blood chemistry; D63.1 Anemia in chronic kidney disease; E16.2 Hypoglycemia, unspecified; R73.9 Hyperglycemia, unspecified; R13.12 Dysphagia, oropharyngeal phase; I65.22 Occlusion and stenosis of left carotid artery; Z79.01 Long term (current) use of anticoagulants; Z79.82 Long term (current) use of aspirin; Z79.899 Other long term (current) drug therapy; Z82.3 Family history of stroke; Z83.3 Family history of diabetes mellitus; Z84.1 Family history of disorders of kidney and ureter; Z91.81 History of falling; T50.905A Adverse effect of unspecified drugs, medicaments and biological substances, initial encounter
CPT/HCPCS: 0240U; 36415; 36416; 51701; 70450; 70496; 70498; 70551; 71045; 74230; 80048; 80053; 80061; 80306; 80307; 81003; 81015; 82550; 82805; 83605; 83735; 84443; 84484; 85025; 85652; 87040; 87086; 93005; 93306; 95712; 95819; 95957; J0171; J0360; J0690; J1644; J1650; J2704; J7042; J7070; Q9967

== ENCOUNTER 2021-02-02 11:09 | Emergency (ER) | payer OTHER, MEDICARE, MEDICAID | END 2021-02-02 12:56 | disposition home or self-care (01) | LOC: ERS 11:09 | DX: Z04.3 Encounter for examination and observation following other accident (principal); I12.9 Hypertensive chronic kidney disease with stage 1 through stage 4 chronic kidney disease, or unspecified chronic kidney disease; N18.30 Chronic kidney disease, stage 3 unspecified; D63.1 Anemia in chronic kidney disease; F17.210 Nicotine dependence, cigarettes, uncomplicated | CPT/HCPCS: 99283 ==

== ENCOUNTER 2021-08-05 09:08 | Emergency (ER) | payer MEDICARE, MEDICAID ==
[2021-08-05 09:56] LABS: #Eosinphils 0.1 thou/uL (0.0-0.7); #Lymphocytes 0.6 thou/uL (1.20-3.40); #Monocytes 0.4 thou/uL (0.11-0.59); #Neutrophils 2.9 thou/uL (1.40-6.50); %Basophils 0.2 % (0.0-1.0); %Eosinophils 2.4 % (0.0-10.0); %Lymphocytes 14.5 % (21.0-51.0); %Monocytes 9.4 % (0.0-10.0); %Neutrophils 73.5 % (42.0-75.0); Hemoglobin 10.3 g/dL (14.0-18.0); Mean Corpuscular HGB CONC 32.2 g/dL (32.0-36.0); Mean Corpuscular Volume 89.9 fL (78.0-98.0); Mean Platelet Volume 8.3 fL (7.4-10.4); Platelet Count 135 thou/uL (130-400); Red Blood Cell (RBC) Count 3.56 mill/uL (4.70-6.10); White Blood Cell (WBC) Count 3.9 thou/uL (4.8-10.8)
[2021-08-05 10:18] LABS: ALT (SGPT) 27 U/L (8-55); AST (SGOT) 25 U/L (5-34); Albumin 3.2 g/dL (3.4-4.8); Alkaline Phosphatase 120 U/L (40-110); Anion Gap 10 mmol/L (10-20); BUN (Urea Nitrogen) 11 mg/dL (8.4-25.7); Bilirubin, Total 0.5 mg/dL (0.2-1.2); Calc. Creatinine Clearance 0 mL/min (70-130); Calcium 8.8 mg/dL (7.8-10.44); Carbon Dioxide 25 mmol/L (23-31); Chloride 104 mmol/L (98-107); Globulin 3.6 g/dL (2.4-3.5); Glucose 197 mg/dL (80-115); Potassium 3.4 mmol/L (3.5-5.1); Protein, Total 6.8 g/dL (5.8-8.1); Sodium 136 mmol/L (136-145)
== END 2021-08-05 10:32 | disposition home or self-care (01) ==
LOC: ERS 09:08
DX: R05.9 Cough, unspecified (principal); D64.9 Anemia, unspecified; E78.5 Hyperlipidemia, unspecified; M19.90 Unspecified osteoarthritis, unspecified site; Z86.73 Personal history of transient ischemic attack (TIA), and cerebral infarction without residual deficits; I10 Essential (primary) hypertension; F17.210 Nicotine dependence, cigarettes, uncomplicated
CPT/HCPCS: 36415; 71045; 80053; 85025

== ENCOUNTER 2021-12-18 06:19 | Inpatient (IN) | payer MEDICARE, MEDICAID ==
[2021-12-18] MEDS ORDERED: Rocuronium Bromide 10 MG/ML (10ML VIAL) ONE (06:36)
[2021-12-18] MEDS ORDERED: Propofol 1,000 MG/100 ML VIAL IV ONE ×2 (06:40→06:47)
[2021-12-18 07:20] LABS: #Basophils 0.1 thou/uL (0.0-0.2); #Eosinphils 0.2 thou/uL (0.0-0.7); #Lymphocytes 3.1 thou/uL (1.20-3.40); #Neutrophils 3.7 thou/uL (1.40-6.50); %Eosinophils 2.1 % (0.0-10.0); %Lymphocytes 38.3 % (21.0-51.0); %Monocytes 12.2 % (0.0-10.0); %Neutrophils 46.3 % (42.0-75.0); ALT (SGPT) 62 U/L (8-55); AST (SGOT) 55 U/L (5-34); Albumin 3.6 g/dL (3.4-4.8); Alkaline Phosphatase 142 U/L (40-110); Anion Gap 17 mmol/L (10-20); BUN (Urea Nitrogen) 16 mg/dL (8.4-25.7); Bilirubin, Total 0.4 mg/dL (0.2-1.2); CK (CPK) 156 U/L (30-200); Calc. Creatinine Clearance 0 mL/min (70-130); Calcium 9.7 mg/dL (7.8-10.44); Carbon Dioxide 21 mmol/L (23-31); Chloride 105 mmol/L (98-107); Estimated GFR 55; Globulin 4.1 g/dL (2.4-3.5); Glucose 204 mg/dL (80-115); Hemoglobin 11.2 g/dL (14.0-18.0); Magnesium 2.2 mg/dL (1.6-2.6); Mean Corpuscular HGB CONC 31.9 g/dL (32.0-36.0); Mean Corpuscular Hemoglobin 28.6 pg (27.0-31.0); Mean Corpuscular Volume 89.5 fL (78.0-98.0); Mean Platelet Volume 9.5 fL (7.4-10.4); Platelet Count 215 thou/uL (130-400); Potassium 4.1 mmol/L (3.5-5.1); Protein, Total 7.7 g/dL (5.8-8.1); RBC Distribution Width 14.8 % (11.5-14.5); Red Blood Cell (RBC) Count 3.93 mill/uL (4.70-6.10); Sodium 139 mmol/L (136-145)
[2021-12-18 07:28] LABS: Actual Bicarbonate (HCO3a) 20.7 mEq/L (22-28); Analyzer IN Cardio ER; CO2 Tension 32.8 mmHg (35.0-45.0); Calcium, Ionized (arterial) 1.18 mmol/L (1.12-1.30); Carboxyhemoglobin (COHb) 0.2 gm% (0.0-3.0); Hemoglobin (Hb) 11.2 g/dL (14.0-18.0); Potassium - ABG Lab 3.34 mmol/L (3.70-5.30); pH, Arterial 7.42 (7.35-7.45)
[2021-12-18 07:29] LABS: Puncture Site LRA
[2021-12-18 07:31] LABS: Bilirubin Negative (Negative); Blood, Urine Negative (Negative); Clarity Clear (Clear); Glucose, Urine (Dipstick) Normal (Negative); Ketone, Urine Negative (Negative); Leukocyte Negative Leu/uL (Negative); Nitrite Negative (Negative); Protein, Urine (Dipstick) 10 mg/dL (Neg-Trace); Urobilinogen Normal mg/dL (Less than 2); pH, Urine 6.5 (5.0-9.0)
[2021-12-18 08:01] LABS: SARS-CoV-2 NAA Rapid Test Not Detected (NotDetected)
[2021-12-18] MEDS ORDERED: levETIRAcetam 500 MG/5 ML VIAL SLOW IVP SCH (08:30)
[2021-12-18] MEDS ORDERED: Propofol 1,000 MG/100 ML VIAL IV PRN (08:30)
[2021-12-18] MEDS ORDERED: levETIRAcetam 500 MG/5 ML VIAL ONE ×2 (08:31→08:32)
[2021-12-18] MEDS ORDERED: Lorazepam 2 MG/ML VIAL ONE ×2 (08:43→10:13)
[2021-12-18] MEDS ORDERED: Vancomycin 1 GM in Premix Bag 1 BAG IVPB SCH (09:15)
[2021-12-18] MEDS ORDERED: Ondansetron ODT 4 MG TAB PO PRN (09:27)
[2021-12-18] MEDS ORDERED: Acetaminophen 500 MG TAB PO PRN (09:27)
[2021-12-18] MEDS ORDERED: Lorazepam 2 MG/ML VIAL SLOW IVP PRN (09:27)
[2021-12-18] MEDS ORDERED: Ondansetron PF 4 MG/2 ML Vial IVP PRN (09:27)
[2021-12-18] MEDS ORDERED: Electrolyte Replacement Protocol 1 EACH FS ONE (09:27)
[2021-12-18] MEDS ORDERED: Acetaminophen 650 MG Suppository PR PRN (09:27)
[2021-12-18] MEDS ORDERED: Ventilator Sedation Protocol 1 EACH FS ONE (09:27)
[2021-12-18] MEDS ORDERED: hydrALAZINE 20 MG/ML VIAL SLOW IVP PRN (09:27)
[2021-12-18] MEDS ORDERED: Famotidine/PF 20 mg/2ml Vial ONE (09:39)
[2021-12-18] MEDS ORDERED: Vancomycin 1 GM/200 ML BAG ONE (09:39)
[2021-12-18] MEDS ORDERED: Sodium Chloride 0.9% 100 ML ONE (09:39)
[2021-12-18] MEDS ORDERED: Cefepime 1 GM VIAL ONE (09:39)
[2021-12-18] MEDS: Sodium Chloride 0.9% 1,000 ML IV SCH ×2 (09:46→20:28)
[2021-12-18] MEDS: Famotidine/PF 20 mg/2ml Vial SLOW IVP SCH ×2 (09:46→20:30)
[2021-12-18] MEDS: Cefepime 1 GM in Sodium Chloride 0.9% 100 ML IVPB SCH ×2 (09:47→20:29)
[2021-12-18] MEDS ORDERED: NOREPINEPHRINE 8 MG/250 ML-D5W 250 ML ONE (10:06)
[2021-12-18] MEDS: Lisinopril 20 MG TAB PER TUBE SCH ×2 (10:12→20:32)
[2021-12-18 10:14] LABS: Troponin I 0.054 ng/mL (< 0.028)
[2021-12-18] MEDS ORDERED: NOREPINEPHRINE 8 MG/250 ML-D5W 250 ML IVPB SCH (10:15)
[2021-12-18] MEDS ORDERED: Fentanyl CADD 100 ML IV SCH (10:45)
[2021-12-18 13:25] LABS: Troponin I 0.066 ng/mL (< 0.028)
[2021-12-18] MEDS ORDERED: FLU VACC QS2022-23(65YR UP)/PF 240 MCG/0.7 ML SYRINGE IM ONE (16:00)
[2021-12-18 16:25] LABS: Lactic Acid 2.1 mmol/L (0.5-2.2)
[2021-12-18 17:58] LABS: Lactic Acid 2.1 mmol/L (0.5-2.2)
[2021-12-18] MEDS: levETIRAcetam 500 MG/5 ML VIAL SLOW IVP SCH (20:30)
[2021-12-19 04:10] LABS: #Lymphocytes 0.7 thou/uL (1.20-3.40); #Monocytes 0.6 thou/uL (0.11-0.59); #Neutrophils 3.4 thou/uL (1.40-6.50); %Basophils 0.2 % (0.0-1.0); %Eosinophils 0.5 % (0.0-10.0); %Lymphocytes 14.2 % (21.0-51.0); %Neutrophils 73.1 % (42.0-75.0); Hemoglobin 8.6 g/dL (14.0-18.0); Mean Corpuscular HGB CONC 32.7 g/dL (32.0-36.0); Mean Corpuscular Volume 85.6 fL (78.0-98.0); Mean Platelet Volume 9.5 fL (7.4-10.4); Platelet Count 146 thou/uL (130-400); RBC Distribution Width 14.8 % (11.5-14.5); Red Blood Cell (RBC) Count 3.06 mill/uL (4.70-6.10); White Blood Cell (WBC) Count 4.6 thou/uL (4.8-10.8)
[2021-12-19 04:27] LABS: ALT (SGPT) 40 U/L (8-55); AST (SGOT) 38 U/L (5-34); Albumin 2.8 g/dL (3.4-4.8); Alkaline Phosphatase 104 U/L (40-110); Anion Gap 11 mmol/L (10-20); BUN (Urea Nitrogen) 13 mg/dL (8.4-25.7); Bilirubin, Total 0.6 mg/dL (0.2-1.2); Calc. Creatinine Clearance 56 mL/min (70-130); Calcium 8.5 mg/dL (7.8-10.44); Carbon Dioxide 20 mmol/L (23-31); Chloride 112 mmol/L (98-107); Estimated GFR 87; Globulin 3.1 g/dL (2.4-3.5); Glucose 83 mg/dL (80-115); Magnesium 1.6 mg/dL (1.6-2.6); Potassium 3.6 mmol/L (3.5-5.1); Protein, Total 5.9 g/dL (5.8-8.1); Sodium 139 mmol/L (136-145)
[2021-12-19] MEDS: Sodium Chloride 0.9% 1,000 ML IV SCH ×2 (05:48→14:49)
[2021-12-19 07:43] LABS: Actual Bicarbonate (HCO3a) 20.9 mEq/L (22-28); Base Excess (BEa) -1.9 mEq/L (-2.0 to +3.0); CO2 Tension 27.9 mmHg (35.0-45.0); Calcium, Ionized (arterial) 1.16 mmol/L (1.12-1.30); Carboxyhemoglobin (COHb) 0.1 gm% (0.0-3.0); Hemoglobin (Hb) 7.9 g/dL (14.0-18.0); O2 Tension (PaO2), arterial 130.2 mmHg (> 80.0); Potassium - ABG Lab 3.51 mmol/L (3.70-5.30); pH, Arterial 7.49 (7.35-7.45)
[2021-12-19 07:49] LABS: ALV-art Gradient 120.125 mmHg (0-20); Puncture Site RBA
[2021-12-19] MEDS ORDERED: Magnesium 2 GM/50 ML(in water) 2 GM in Premix Bag 1 BAG IVPB SCH (08:30)
[2021-12-19] MEDS: Lisinopril 20 MG TAB PER TUBE SCH ×2 (08:36→20:25)
[2021-12-19] MEDS: levETIRAcetam 500 MG/5 ML VIAL SLOW IVP SCH ×2 (08:37→20:25)
[2021-12-19] MEDS: Famotidine/PF 20 mg/2ml Vial SLOW IVP SCH ×2 (08:37→20:25)
[2021-12-19] MEDS ORDERED: Vancomycin 1 GM in Premix Bag 1 BAG IVPB SCH (09:00)
[2021-12-19] MEDS ORDERED: Famotidine/PF 20 mg/2ml Vial SLOW IVP SCH (21:00)
[2021-12-20] MEDS: Sodium Chloride 0.9% 1,000 ML IV SCH (00:41)
[2021-12-20 04:11] LABS: Magnesium 1.8 mg/dL (1.6-2.6)
[2021-12-20 05:56] VITALS: BMI 17.8
[2021-12-20 08:22] LABS: #Eosinphils 0.1 thou/uL (0.0-0.7); #Lymphocytes 0.6 thou/uL (1.20-3.40); #Monocytes 0.5 thou/uL (0.11-0.59); #Neutrophils 3.9 thou/uL (1.40-6.50); %Basophils 0.2 % (0.0-1.0); %Eosinophils 1.6 % (0.0-10.0); %Lymphocytes 11.3 % (21.0-51.0); %Monocytes 9.4 % (0.0-10.0); %Neutrophils 77.5 % (42.0-75.0); Hemoglobin 9.8 g/dL (14.0-18.0); Mean Corpuscular Hemoglobin 26.6 pg (27.0-31.0); Mean Corpuscular Volume 85.9 fL (78.0-98.0); Mean Platelet Volume 7.8 fL (7.4-10.4); Platelet Count 139 thou/uL (130-400); RBC Distribution Width 14.3 % (11.5-14.5); Red Blood Cell (RBC) Count 3.69 mill/uL (4.70-6.10)
[2021-12-20 08:35] LABS: Anion Gap 9 mmol/L (10-20); BUN (Urea Nitrogen) 11 mg/dL (8.4-25.7); Calc. Creatinine Clearance 64 mL/min (70-130); Calcium 8.6 mg/dL (7.8-10.44); Carbon Dioxide 24 mmol/L (23-31); Chloride 108 mmol/L (98-107); Estimated GFR 96; Glucose 72 mg/dL (80-115); Sodium 137 mmol/L (136-145)
[2021-12-20] MEDS: Enoxaparin Sodium 30 MG/0.3 ML SYRINGE SC SCH (08:47)
[2021-12-20] MEDS: Famotidine/PF 20 mg/2ml Vial SLOW IVP SCH (08:47)
[2021-12-20] MEDS: levETIRAcetam 500 MG/5 ML VIAL SLOW IVP SCH (08:47)
[2021-12-20] MEDS: Lisinopril 20 MG TAB PER TUBE SCH (08:47)
[2021-12-20 08:52] LABS: MDiff Complete? YES; Platelet Morphology Comment Appears Adequate; Polychromasia SLIGHT = 2-3 cells (100X) (0-2/hpf)
[2021-12-20] MEDS: levETIRAcetam 500 MG TAB PO SCH (20:39)
[2021-12-20] MEDS: Escitalopram Oxalate 10 mg Tablet PO SCH (20:41)
[2021-12-20] MEDS: Atorvastatin Calcium 40 MG TAB PER TUBE SCH (20:41)
[2021-12-20] MEDS: Lisinopril 20 MG TAB PO SCH (20:41)
[2021-12-21] MEDS: Cyanocobalamin (Vitamin B-12) 1,000 MCG TAB PO SCH (09:55)
[2021-12-21] MEDS: Escitalopram Oxalate 20 mg Tablet PO SCH (09:55)
[2021-12-21] MEDS: Enoxaparin Sodium 30 MG/0.3 ML SYRINGE SC SCH (09:55)
[2021-12-21] MEDS: Aspirin 325 MG TAB PO SCH (09:55)
[2021-12-21] MEDS: levETIRAcetam 500 MG TAB PO SCH ×2 (09:55→20:06)
[2021-12-21] MEDS: Lisinopril 20 MG TAB PO SCH ×2 (09:56→20:06)
[2021-12-21] MEDS: Escitalopram Oxalate 10 mg Tablet PO SCH (20:05)
[2021-12-21] MEDS: Atorvastatin Calcium 40 MG TAB PER TUBE SCH (20:05)
[2021-12-22 09:13] LABS: Magnesium 1.6 mg/dL (1.6-2.6)
[2021-12-22] MEDS: Enoxaparin Sodium 30 MG/0.3 ML SYRINGE SC SCH (10:26)
[2021-12-22] MEDS: levETIRAcetam 500 MG TAB PO SCH ×2 (10:27→21:02)
[2021-12-22] MEDS: Aspirin 325 MG TAB PO SCH (10:27)
[2021-12-22] MEDS: Lisinopril 20 MG TAB PO SCH ×2 (10:27→21:02)
[2021-12-22] MEDS: Cyanocobalamin (Vitamin B-12) 1,000 MCG TAB PO SCH (10:29)
[2021-12-22] MEDS: Escitalopram Oxalate 20 mg Tablet PO SCH (10:29)
[2021-12-22] MEDS ORDERED: Electrolyte Replacement Protocol FS PRN (14:30)
[2021-12-22] MEDS ORDERED: Magnesium 2 GM/50 ML(in water) 2 GM in Premix Bag 1 BAG IVPB SCH (15:15)
[2021-12-22] MEDS: Atorvastatin Calcium 40 MG TAB PER TUBE SCH (21:01)
[2021-12-22] MEDS: Escitalopram Oxalate 10 mg Tablet PO SCH (21:02)
[2021-12-23 06:56] LABS: Reticulocyte Count 0.9 % (0.5-1.5)
[2021-12-23 07:09] LABS: Iron 22 ug/dL (65-175); Iron Binding Capacity, Total 201 mcg/dL (261-462); Magnesium 1.8 mg/dL (1.6-2.6)
[2021-12-23] MEDS ORDERED: Magnesium 2 GM/50 ML(in water) 2 GM in Premix Bag 1 BAG IVPB SCH (09:00)
[2021-12-23] MEDS: Lisinopril 20 MG TAB PO SCH ×2 (09:20→21:03)
[2021-12-23] MEDS: Cyanocobalamin (Vitamin B-12) 1,000 MCG TAB PO SCH (09:20)
[2021-12-23] MEDS: Aspirin 325 MG TAB PO SCH (09:20)
[2021-12-23] MEDS: Ferrous Sulfate 325 MG TAB PO SCH (09:21)
[2021-12-23] MEDS: Escitalopram Oxalate 20 mg Tablet PO SCH (09:21)
[2021-12-23] MEDS: Enoxaparin Sodium 30 MG/0.3 ML SYRINGE SC SCH (09:22)
[2021-12-23] MEDS: levETIRAcetam 500 MG TAB PO SCH ×2 (09:23→21:03)
[2021-12-23 10:45] LABS: Anion Gap 13 mmol/L (10-20); BUN (Urea Nitrogen) 5 mg/dL (8.4-25.7); Calc. Creatinine Clearance 60 mL/min (70-130); Carbon Dioxide 23 mmol/L (23-31); Chloride 106 mmol/L (98-107); Estimated GFR 94; Glucose 87 mg/dL (80-115); Potassium 3.7 mmol/L (3.5-5.1); Sodium 138 mmol/L (136-145)
[2021-12-23] MEDS: Atorvastatin Calcium 40 MG TAB PER TUBE SCH (21:03)
[2021-12-23] MEDS: Escitalopram Oxalate 10 mg Tablet PO SCH (21:03)
[2021-12-24] MEDS: Cyanocobalamin (Vitamin B-12) 1,000 MCG TAB PO SCH (10:48)
[2021-12-24] MEDS: Aspirin 325 MG TAB PO SCH (10:48)
[2021-12-24] MEDS: Lisinopril 20 MG TAB PO SCH (10:49)
[2021-12-24] MEDS: Escitalopram Oxalate 20 mg Tablet PO SCH (10:49)
[2021-12-24] MEDS: levETIRAcetam 500 MG TAB PO SCH (10:49)
[2021-12-24] MEDS: Ferrous Sulfate 325 MG TAB PO SCH (10:49)
[2021-12-24] MEDS: Enoxaparin Sodium 30 MG/0.3 ML SYRINGE SC SCH (10:52)
[2021-12-24 12:31] VITALS: TEMP 97
[2021-12-24 16:57] VITALS: BP 153/79
== END 2021-12-24 17:15 | DRG 208 ==
LOC: ERS 06:19 → ERHOLD 07:56 → CCU 11:42 → NEURO 12-20 07:42 → CCU 12-20 07:54 → NEURO 12-20 09:31
PROVIDERS: ADMIT Family Medicine; ATTEND Family Medicine
PROC: 5A1935Z Respiratory Ventilation, Less than 24 Consecutive Hours (ICD-10-PCS; principal; 2021-12-18)
PROC: 0BH17EZ Insertion of Endotracheal Airway into Trachea, Via Natural or Artificial Opening (ICD-10-PCS; 2021-12-18)
PROC: 3E033XZ Introduction of Vasopressor into Peripheral Vein, Percutaneous Approach (ICD-10-PCS; 2021-12-18)
DX: J69.0 Pneumonitis due to inhalation of food and vomit (principal); G93.41 Metabolic encephalopathy; J96.01 Acute respiratory failure with hypoxia; R57.8 Other shock; I69.354 Hemiplegia and hemiparesis following cerebral infarction affecting left non-dominant side; N17.9 Acute kidney failure, unspecified; N18.4 Chronic kidney disease, stage 4 (severe); E87.20 Acidosis, unspecified; I12.9 Hypertensive chronic kidney disease with stage 1 through stage 4 chronic kidney disease, or unspecified chronic kidney disease; D63.1 Anemia in chronic kidney disease; F14.10 Cocaine abuse, uncomplicated; F32.A Depression, unspecified; E78.5 Hyperlipidemia, unspecified; M19.90 Unspecified osteoarthritis, unspecified site; F17.210 Nicotine dependence, cigarettes, uncomplicated; N18.30 Chronic kidney disease, stage 3 unspecified; R74.01 Elevation of levels of liver transaminase levels; R73.9 Hyperglycemia, unspecified; R13.12 Dysphagia, oropharyngeal phase; I69.320 Aphasia following cerebral infarction; Z98.890 Other specified postprocedural states; Z83.3 Family history of diabetes mellitus; Z82.3 Family history of stroke; Z84.1 Family history of disorders of kidney and ureter; Z79.82 Long term (current) use of aspirin
CPT/HCPCS: 31500; 36415; 36416; 36600; 51702; 70450; 71045; 74230; 80048; 80053; 81003; 82550; 82728; 82805; 83036; 83540; 83550; 83605; 83735; 83880; 84146; 84443; 84484; 85025; 85046; 87040; 87086; 93005; 94002; 94003; 94760; 95712; 95816; 95819; 95957; 96361; 96374; 96375; J0692; J1650; J1953; J2060; J2704; J3370; J3475; J3490; J7050; S0028; U0002

== ENCOUNTER 2022-03-10 15:29 | Inpatient (IN) | payer MEDICARE, MEDICAID ==
[2022-03-10 16:11] LABS: #Lymphocytes 0.8 thou/uL (1.20-3.40); #Monocytes 0.9 thou/uL (0.11-0.59); #Neutrophils 9.7 thou/uL (1.40-6.50); %Basophils 0.2 % (0.0-1.0); %Eosinophils 0.3 % (0.0-10.0); %Lymphocytes 7.3 % (21.0-51.0); %Monocytes 7.7 % (0.0-10.0); %Neutrophils 84.5 % (42.0-75.0); Hemoglobin 9.9 g/dL (14.0-18.0); Mean Corpuscular HGB CONC 33.9 g/dL (32.0-36.0); Mean Corpuscular Hemoglobin 26.8 pg (27.0-31.0); Platelet Count 326 10x3/uL (130-400); RBC Distribution Width 16.2 % (11.5-14.5); Red Blood Cell (RBC) Count 3.69 mill/uL (4.70-6.10); White Blood Cell (WBC) Count 11.5 10x3/uL (4.8-10.8)
[2022-03-10 16:29] LABS: ALT (SGPT) 154 U/L (8-55); AST (SGOT) 185 U/L (5-34); Albumin 2.9 g/dL (3.4-4.8); Alkaline Phosphatase 184 U/L (40-110); Anion Gap 16 mmol/L (10-20); BUN (Urea Nitrogen) 42 mg/dL (8.4-25.7); Bilirubin, Total 0.8 mg/dL (0.2-1.2); Calc. Creatinine Clearance 0 mL/min (70-130); Calcium 9.8 mg/dL (7.8-10.44); Carbon Dioxide 23 mmol/L (23-31); Chloride 109 mmol/L (98-107); Estimated GFR 22; Globulin 5.3 g/dL (2.4-3.5); Glucose 118 mg/dL (80-115); Lipase 66 U/L (8-78); Potassium 4.3 mmol/L (3.5-5.1); Protein, Total 8.2 g/dL (5.8-8.1); Sodium 144 mmol/L (136-145)
[2022-03-10] MEDS ORDERED: Piperacillin/Tazobactam 4.5 GM VIAL ONE (16:35)
[2022-03-10] MEDS ORDERED: Acetaminophen 325 MG TAB PO PRN (18:22)
[2022-03-10] MEDS ORDERED: Vancomycin 1 GM/200 ML (FROZEN) BAG ONE (18:41)
[2022-03-10] MEDS ORDERED: Bisacodyl 10 MG SUPP PR PRN (18:57)
[2022-03-10] MEDS ORDERED: Vancomycin 1 GM in Premix Bag 1 BAG IVPB SCH (21:00)
[2022-03-10 21:13] VITALS: BMI 15.4
[2022-03-10] MEDS ORDERED: Vancomycin Dose by Levels Sliding Scale (Wt <71) FS SCH (21:45)
[2022-03-10] MEDS: Piperacillin/Tazobactam 3.375 GM in Sodium Chloride 0.9% 100 ML IVPB SCH (22:50)
[2022-03-10] MEDS: Sodium Chloride 0.9% 1,000 ML IV SCH (22:51)
[2022-03-11 05:38] LABS: #Eosinphils 0.1 thou/uL (0.0-0.7); #Lymphocytes 0.7 thou/uL (1.20-3.40); #Monocytes 0.7 thou/uL (0.11-0.59); #Neutrophils 6.9 thou/uL (1.40-6.50); %Basophils 0.1 % (0.0-1.0); %Eosinophils 0.8 % (0.0-10.0); %Lymphocytes 7.8 % (21.0-51.0); %Monocytes 8.8 % (0.0-10.0); %Neutrophils 82.5 % (42.0-75.0); Hemoglobin 8.2 g/dL (14.0-18.0); Mean Corpuscular HGB CONC 31.7 g/dL (32.0-36.0); Mean Corpuscular Hemoglobin 25.8 pg (27.0-31.0); Mean Corpuscular Volume 81.1 fl (78.0-98.0); Mean Platelet Volume 7.9 fL (7.4-10.4); Platelet Count 268 10x3/uL (130-400); RBC Distribution Width 16.3 % (11.5-14.5); Red Blood Cell (RBC) Count 3.19 mill/uL (4.70-6.10); White Blood Cell (WBC) Count 8.3 10x3/uL (4.8-10.8)
[2022-03-11 06:02] LABS: Anion Gap 15 mmol/L (10-20); BUN (Urea Nitrogen) 44 mg/dL (8.4-25.7); Calc. Creatinine Clearance 14 mL/min (70-130); Calcium 8.9 mg/dL (7.8-10.44); Carbon Dioxide 19 mmol/L (23-31); Chloride 111 mmol/L (98-107); Estimated GFR 22; Glucose 100 mg/dL (80-115); Potassium 3.9 mmol/L (3.5-5.1); Sodium 141 mmol/L (136-145)
[2022-03-11] MEDS: Sodium Chloride 0.9% 1,000 ML IV SCH ×2 (09:01→22:14)
[2022-03-11] MEDS: Piperacillin/Tazobactam 3.375 GM in Sodium Chloride 0.9% 100 ML IVPB SCH ×3 (09:02→22:12)
[2022-03-11 09:05] LABS: SARS-CoV-2 NAA Rapid Test Not Detected (NotDetected)
[2022-03-11] MEDS ORDERED: Sodium Chloride 0.9% 100 ML ONE (10:01)
[2022-03-11] MEDS ORDERED: Piperacillin/Tazobactam 3.375 GM VIAL ONE (10:01)
[2022-03-11] MEDS ORDERED: Fentanyl 250 MCG/5 ML VIAL ONE (10:07)
[2022-03-11] MEDS ORDERED: Lidocaine 1% PF 5 ML VIAL ONE (10:16)
[2022-03-11] MEDS ORDERED: Ondansetron PF 4 MG/2 ML Vial ONE (10:16)
[2022-03-11] MEDS ORDERED: Dexamethasone 20 MG/5 ML VIAL ONE (10:16)
[2022-03-11] MEDS ORDERED: PROPOFOL 200 MG/20 ML VIAL ONE (10:16)
[2022-03-11] MEDS ORDERED: PHENYLEPHRINE-NS 100 MCG/ML 10 ML SYRINGE ONE (10:16)
[2022-03-11] MEDS ORDERED: ePHEDrine 50 MG/ML VIAL ONE (10:16)
[2022-03-11] MEDS: Cyclobenzaprine 10 MG TAB PO SCH ×2 (10:17→22:08)
[2022-03-11] MEDS: Polyethylene Glycol 3350 17 GM Packet PO SCH (10:18)
[2022-03-11] MEDS: levETIRAcetam 500 MG TAB PO SCH ×2 (10:18→22:08)
[2022-03-11] MEDS: Senokot S 8.6-50 MG TAB PO SCH ×2 (10:18→22:08)
[2022-03-11 10:36] LABS: ALT (SGPT) 115 U/L (8-55); AST (SGOT) 132 U/L (5-34); Albumin 2.4 g/dL (3.4-4.8); Alkaline Phosphatase 148 U/L (40-110); Bilirubin, Direct 0.5 mg/dL (0.1-0.3); Bilirubin, Total 0.8 mg/dL (0.2-1.2); Protein, Total 6.7 g/dL (5.8-8.1)
[2022-03-11 17:46] LABS: Vancomycin, Random 11.8 ug/mL (See Comment)
[2022-03-11] MEDS ORDERED: Vancomycin HCl 500 MG in Sodium Chloride 0.9% 100 ML IVPB SCH (18:00)
[2022-03-11] MEDS ORDERED: Atorvastatin Calcium 40 MG TAB PO SCH (21:00)
[2022-03-11] MEDS ORDERED: Lisinopril 20 MG TAB PO SCH (21:00)
[2022-03-11] MEDS: Escitalopram Oxalate 20 mg Tablet PO SCH (22:08)
[2022-03-12 04:57] LABS: #Lymphocytes 0.8 thou/uL (1.20-3.40); #Monocytes 0.8 thou/uL (0.11-0.59); #Neutrophils 8.4 thou/uL (1.40-6.50); %Basophils 0.1 % (0.0-1.0); %Eosinophils 0.3 % (0.0-10.0); %Lymphocytes 7.5 % (21.0-51.0); %Monocytes 8.2 % (0.0-10.0); %Neutrophils 83.9 % (42.0-75.0); Hemoglobin 7.7 g/dL (14.0-18.0); Mean Corpuscular HGB CONC 31.4 g/dL (32.0-36.0); Mean Corpuscular Hemoglobin 25.3 pg (27.0-31.0); Mean Corpuscular Volume 80.7 fl (78.0-98.0); Mean Platelet Volume 7.7 fL (7.4-10.4); Platelet Count 275 10x3/uL (130-400); RBC Distribution Width 16.2 % (11.5-14.5); Red Blood Cell (RBC) Count 3.04 mill/uL (4.70-6.10)
[2022-03-12 05:19] LABS: Anion Gap 15 mmol/L (10-20); BUN (Urea Nitrogen) 47 mg/dL (8.4-25.7); Calc. Creatinine Clearance 15 mL/min (70-130); Calcium 8.7 mg/dL (7.8-10.44); Carbon Dioxide 19 mmol/L (23-31); Chloride 115 mmol/L (98-107); Estimated GFR 25; Glucose 98 mg/dL (80-115); Potassium 4.1 mmol/L (3.5-5.1); Sodium 145 mmol/L (136-145)
[2022-03-12] MEDS: Aspirin 325 MG TAB PO SCH ×2 (10:33→13:36)
[2022-03-12] MEDS: Famotidine 20 MG TAB PO SCH ×2 (10:33→13:36)
[2022-03-12] MEDS: Senokot S 8.6-50 MG TAB PO SCH ×3 (10:33→20:57)
[2022-03-12] MEDS: Cyclobenzaprine 10 MG TAB PO SCH ×3 (10:33→20:56)
[2022-03-12] MEDS: Ferrous Sulfate 325 MG TAB PO SCH ×2 (10:33→13:35)
[2022-03-12] MEDS: Polyethylene Glycol 3350 17 GM Packet PO SCH ×2 (10:34→13:36)
[2022-03-12] MEDS: levETIRAcetam 500 MG TAB PO SCH ×3 (10:34→20:57)
[2022-03-12] MEDS: Piperacillin/Tazobactam 3.375 GM in Sodium Chloride 0.9% 100 ML IVPB SCH ×2 (10:34→20:56)
[2022-03-12] MEDS: Sodium Chloride 0.9% 1,000 ML IV SCH (10:55)
[2022-03-12 17:24] LABS: Vancomycin, Random 12.6 ug/mL (See Comment)
[2022-03-12] MEDS ORDERED: Vancomycin HCl 750 MG in Sodium Chloride 0.9% 250 ML 250 ML IVPB SCH (18:30)
[2022-03-12] MEDS: Escitalopram Oxalate 20 mg Tablet PO SCH (20:57)
[2022-03-13 04:19] LABS: #Eosinphils 0.1 thou/uL (0.0-0.7); #Lymphocytes 0.6 thou/uL (1.20-3.40); #Monocytes 0.7 thou/uL (0.11-0.59); #Neutrophils 6.5 thou/uL (1.40-6.50); %Basophils 0.3 % (0.0-1.0); %Eosinophils 1.1 % (0.0-10.0); %Lymphocytes 7.2 % (21.0-51.0); %Monocytes 8.9 % (0.0-10.0); %Neutrophils 82.5 % (42.0-75.0); Hemoglobin 7.7 g/dL (14.0-18.0); Mean Corpuscular HGB CONC 32.4 g/dL (32.0-36.0); Mean Corpuscular Hemoglobin 26.1 pg (27.0-31.0); Mean Corpuscular Volume 80.5 fl (78.0-98.0); Mean Platelet Volume 7.6 fL (7.4-10.4); Platelet Count 263 10x3/uL (130-400); RBC Distribution Width 16.2 % (11.5-14.5); Red Blood Cell (RBC) Count 2.93 mill/uL (4.70-6.10); White Blood Cell (WBC) Count 7.8 10x3/uL (4.8-10.8)
[2022-03-13 04:44] LABS: ALT (SGPT) 76 U/L (8-55); AST (SGOT) 98 U/L (5-34); Albumin 2.4 g/dL (3.4-4.8); Alkaline Phosphatase 132 U/L (40-110); Anion Gap 12 mmol/L (10-20); BUN (Urea Nitrogen) 32 mg/dL (8.4-25.7); Bilirubin, Total 0.7 mg/dL (0.2-1.2); Calc. Creatinine Clearance 21 mL/min (70-130); Calcium 8.6 mg/dL (7.8-10.44); Carbon Dioxide 19 mmol/L (23-31); Chloride 120 mmol/L (98-107); Estimated GFR 37; Globulin 4.3 g/dL (2.4-3.5); Glucose 93 mg/dL (80-115); Magnesium 2.2 mg/dL (1.6-2.6); Potassium 3.5 mmol/L (3.5-5.1); Protein, Total 6.7 g/dL (5.8-8.1); Sodium 147 mmol/L (136-145)
[2022-03-13] MEDS: Sodium Chloride 0.9% 1,000 ML IV SCH (05:54)
[2022-03-13] MEDS ORDERED: Morphine 2 MG/ML VIAL SLOW IVP PRN (08:46)
[2022-03-13] MEDS ORDERED: Dextrose 5% in Water 1,000 ML IV SCH (09:00)
[2022-03-13] MEDS: Piperacillin/Tazobactam 3.375 GM in Sodium Chloride 0.9% 100 ML IVPB SCH ×2 (10:15→23:09)
[2022-03-13] MEDS: Famotidine 20 MG TAB PO SCH (10:16)
[2022-03-13] MEDS: Senokot S 8.6-50 MG TAB PO SCH ×2 (10:16→22:12)
[2022-03-13] MEDS: Polyethylene Glycol 3350 17 GM Packet PO SCH (10:16)
[2022-03-13] MEDS: Cyclobenzaprine 10 MG TAB PO SCH ×2 (10:17→22:13)
[2022-03-13] MEDS: levETIRAcetam 500 MG TAB PO SCH ×2 (10:17→22:12)
[2022-03-13] MEDS: Aspirin 325 MG TAB PO SCH (10:17)
[2022-03-13] MEDS: Ferrous Sulfate 325 MG TAB PO SCH (10:17)
[2022-03-13] MEDS: Dextrose 5% in Water 1,000 ML IV SCH (11:10)
[2022-03-13] MEDS: Morphine 4 MG/ML VIAL SLOW IVP PRN (16:17)
[2022-03-13] MEDS ORDERED: Vancomycin HCl 500 MG in Sodium Chloride 0.9% 100 ML IV SCH (19:00)
[2022-03-13] MEDS: Escitalopram Oxalate 20 mg Tablet PO SCH (22:13)
[2022-03-14 07:27] LABS: #Eosinphils 0.1 thou/uL (0.0-0.7); #Lymphocytes 0.8 thou/uL (1.20-3.40); #Monocytes 0.6 thou/uL (0.11-0.59); #Neutrophils 5.8 thou/uL (1.40-6.50); %Basophils 0.2 % (0.0-1.0); %Eosinophils 1.8 % (0.0-10.0); %Lymphocytes 11.1 % (21.0-51.0); %Monocytes 8.3 % (0.0-10.0); %Neutrophils 78.7 % (42.0-75.0); Hemoglobin 8.1 g/dL (14.0-18.0); Mean Corpuscular HGB CONC 30.9 g/dL (32.0-36.0); Mean Corpuscular Hemoglobin 25.1 pg (27.0-31.0); Mean Corpuscular Volume 81.2 fl (78.0-98.0); Mean Platelet Volume 7.3 fL (7.4-10.4); Platelet Count 263 10x3/uL (130-400); RBC Distribution Width 16.3 % (11.5-14.5); Red Blood Cell (RBC) Count 3.23 mill/uL (4.70-6.10); White Blood Cell (WBC) Count 7.3 10x3/uL (4.8-10.8)
[2022-03-14 07:46] LABS: ALT (SGPT) 66 U/L (8-55); AST (SGOT) 80 U/L (5-34); Albumin 2.5 g/dL (3.4-4.8); Alkaline Phosphatase 124 U/L (40-110); Anion Gap 11 mmol/L (10-20); BUN (Urea Nitrogen) 20 mg/dL (8.4-25.7); Bilirubin, Total 0.8 mg/dL (0.2-1.2); Calc. Creatinine Clearance 26 mL/min (70-130); Calcium 8.8 mg/dL (7.8-10.44); Carbon Dioxide 22 mmol/L (23-31); Chloride 114 mmol/L (98-107); Estimated GFR 47; Globulin 4.3 g/dL (2.4-3.5); Glucose 133 mg/dL (80-115); Magnesium 1.8 mg/dL (1.6-2.6); Potassium 3.7 mmol/L (3.5-5.1); Protein, Total 6.8 g/dL (5.8-8.1); Sodium 143 mmol/L (136-145)
[2022-03-14 09:23] LABS: Vancomycin, Random 15.6 ug/mL (See Comment)
[2022-03-14] MEDS: Cyclobenzaprine 10 MG TAB PO SCH ×2 (09:45→20:51)
[2022-03-14] MEDS: Senokot S 8.6-50 MG TAB PO SCH ×2 (09:45→20:53)
[2022-03-14] MEDS: Piperacillin/Tazobactam 3.375 GM in Sodium Chloride 0.9% 100 ML IVPB SCH ×2 (09:45→16:50)
[2022-03-14] MEDS: levETIRAcetam 500 MG TAB PO SCH ×2 (09:46→20:53)
[2022-03-14] MEDS: Dextrose 5% in Water 1,000 ML IV SCH ×2 (09:46→12:18)
[2022-03-14] MEDS: Aspirin 325 MG TAB PO SCH (09:46)
[2022-03-14] MEDS: Famotidine 20 MG TAB PO SCH (09:46)
[2022-03-14] MEDS: Ferrous Sulfate 325 MG TAB PO SCH (09:46)
[2022-03-14] MEDS: Polyethylene Glycol 3350 17 GM Packet PO SCH (09:46)
[2022-03-14] MEDS ORDERED: Vancomycin HCl 500 MG in Sodium Chloride 0.9% 100 ML IV SCH (10:30)
[2022-03-14] MEDS: Escitalopram Oxalate 20 mg Tablet PO SCH (20:53)
[2022-03-15] MEDS: Piperacillin/Tazobactam 3.375 GM in Sodium Chloride 0.9% 100 ML IVPB SCH ×3 (01:21→16:28)
[2022-03-15] MEDS: Dextrose 5% in Water 1,000 ML IV SCH ×2 (01:22→14:37)
[2022-03-15 06:27] LABS: #Eosinphils 0.1 thou/uL (0.0-0.7); #Lymphocytes 0.8 thou/uL (1.20-3.40); #Monocytes 0.5 thou/uL (0.11-0.59); #Neutrophils 6.6 thou/uL (1.40-6.50); %Basophils 0.2 % (0.0-1.0); %Eosinophils 1.6 % (0.0-10.0); %Lymphocytes 9.3 % (21.0-51.0); %Monocytes 6.5 % (0.0-10.0); %Neutrophils 82.3 % (42.0-75.0); Hemoglobin 8.1 g/dL (14.0-18.0); Mean Corpuscular HGB CONC 31.5 g/dL (32.0-36.0); Mean Corpuscular Hemoglobin 25.6 pg (27.0-31.0); Mean Corpuscular Volume 81.1 fl (78.0-98.0); Mean Platelet Volume 8.1 fL (7.4-10.4); Platelet Count 218 10x3/uL (130-400); RBC Distribution Width 16.5 % (11.5-14.5); Red Blood Cell (RBC) Count 3.16 mill/uL (4.70-6.10)
[2022-03-15 06:42] LABS: ALT (SGPT) 54 U/L (8-55); AST (SGOT) 66 U/L (5-34); Albumin 2.3 g/dL (3.4-4.8); Alkaline Phosphatase 116 U/L (40-110); Anion Gap 12 mmol/L (10-20); BUN (Urea Nitrogen) 14 mg/dL (8.4-25.7); Bilirubin, Total 0.8 mg/dL (0.2-1.2); Calc. Creatinine Clearance 32 mL/min (70-130); Calcium 8.7 mg/dL (7.8-10.44); Carbon Dioxide 20 mmol/L (23-31); Chloride 112 mmol/L (98-107); Estimated GFR 60; Globulin 4.4 g/dL (2.4-3.5); Glucose 85 mg/dL (80-115); Magnesium 1.6 mg/dL (1.6-2.6); Potassium 3.7 mmol/L (3.5-5.1); Protein, Total 6.7 g/dL (5.8-8.1); Sodium 140 mmol/L (136-145)
[2022-03-15] MEDS: levETIRAcetam 500 MG TAB PO SCH ×2 (09:09→21:32)
[2022-03-15] MEDS: Senokot S 8.6-50 MG TAB PO SCH ×2 (09:09→21:32)
[2022-03-15] MEDS: Famotidine 20 MG TAB PO SCH (09:09)
[2022-03-15] MEDS: Cyclobenzaprine 10 MG TAB PO SCH ×2 (09:10→21:32)
[2022-03-15] MEDS: Ferrous Sulfate 325 MG TAB PO SCH (09:10)
[2022-03-15] MEDS: Aspirin 325 MG TAB PO SCH (09:10)
[2022-03-15] MEDS: Polyethylene Glycol 3350 17 GM Packet PO SCH (09:11)
[2022-03-15 09:51] LABS: Vancomycin, Random 16.6 ug/mL (See Comment)
[2022-03-15] MEDS: Vancomycin HCl 500 MG in Sodium Chloride 0.9% 100 ML IVPB SCH (12:55)
[2022-03-15] MEDS: Escitalopram Oxalate 20 mg Tablet PO SCH (21:31)
[2022-03-15] MEDS: Metoprolol Tartrate 50 MG TAB PO SCH (21:32)
[2022-03-16] MEDS: Piperacillin/Tazobactam 3.375 GM in Sodium Chloride 0.9% 100 ML IVPB SCH ×3 (01:52→16:42)
[2022-03-16] MEDS: Polyethylene Glycol 3350 17 GM Packet PO SCH (08:26)
[2022-03-16] MEDS: Ferrous Sulfate 325 MG TAB PO SCH (08:28)
[2022-03-16] MEDS: NIFEdipine XL 30 MG TAB PO SCH (08:28)
[2022-03-16] MEDS: levETIRAcetam 500 MG TAB PO SCH ×2 (08:28→21:30)
[2022-03-16] MEDS: Famotidine 20 MG TAB PO SCH (08:28)
[2022-03-16] MEDS: Cyclobenzaprine 10 MG TAB PO SCH ×2 (08:28→21:30)
[2022-03-16] MEDS: Aspirin 325 MG TAB PO SCH (08:28)
[2022-03-16] MEDS: Senokot S 8.6-50 MG TAB PO SCH ×2 (08:28→21:30)
[2022-03-16] MEDS: Metoprolol Tartrate 50 MG TAB PO SCH ×2 (08:38→21:33)
[2022-03-16 10:25] LABS: #Eosinphils 0.1 thou/uL (0.0-0.7); #Monocytes 0.7 thou/uL (0.11-0.59); #Neutrophils 6.7 thou/uL (1.40-6.50); %Eosinophils 1.2 % (0.0-10.0); %Lymphocytes 11.8 % (21.0-51.0); %Monocytes 8.5 % (0.0-10.0); %Neutrophils 78.5 % (42.0-75.0); Hemoglobin 8.7 g/dL (14.0-18.0); Mean Corpuscular HGB CONC 31.6 g/dL (32.0-36.0); Mean Corpuscular Hemoglobin 24.8 pg (27.0-31.0); Mean Corpuscular Volume 78.7 fl (78.0-98.0); Mean Platelet Volume 8.2 fL (7.4-10.4); Platelet Count 207 10x3/uL (130-400); RBC Distribution Width 16.4 % (11.5-14.5); Red Blood Cell (RBC) Count 3.51 mill/uL (4.70-6.10); White Blood Cell (WBC) Count 8.6 10x3/uL (4.8-10.8)
[2022-03-16] MEDS: Vancomycin HCl 500 MG in Sodium Chloride 0.9% 100 ML IVPB SCH (12:24)
[2022-03-16] MEDS: Escitalopram Oxalate 20 mg Tablet PO SCH (21:30)
[2022-03-17] MEDS: Piperacillin/Tazobactam 3.375 GM in Sodium Chloride 0.9% 100 ML IVPB SCH ×3 (01:55→16:45)
[2022-03-17] MEDS: Polyethylene Glycol 3350 17 GM Packet PO SCH (08:55)
[2022-03-17] MEDS: Cyclobenzaprine 10 MG TAB PO SCH ×2 (08:55→22:58)
[2022-03-17] MEDS: NIFEdipine XL 30 MG TAB PO SCH (08:55)
[2022-03-17] MEDS: Aspirin 325 MG TAB PO SCH (08:55)
[2022-03-17] MEDS: Ferrous Sulfate 325 MG TAB PO SCH (08:56)
[2022-03-17] MEDS: Senokot S 8.6-50 MG TAB PO SCH ×2 (08:56→22:59)
[2022-03-17] MEDS: Metoprolol Tartrate 50 MG TAB PO SCH ×2 (08:56→22:59)
[2022-03-17] MEDS: Famotidine 20 MG TAB PO SCH (08:56)
[2022-03-17] MEDS: levETIRAcetam 500 MG TAB PO SCH ×2 (08:57→22:59)
[2022-03-17 11:38] LABS: Vancomycin, Trough 9.9 ug/mL
[2022-03-17] MEDS ORDERED: Vancomycin HCl 750 MG in Sodium Chloride 0.9% 250 ML 250 ML IVPB SCH (12:00)
[2022-03-17] MEDS: Escitalopram Oxalate 20 mg Tablet PO SCH (22:59)
[2022-03-18] MEDS: Piperacillin/Tazobactam 3.375 GM in Sodium Chloride 0.9% 100 ML IVPB SCH ×3 (01:39→16:45)
[2022-03-18] MEDS: Ferrous Sulfate 325 MG TAB PO SCH (08:23)
[2022-03-18] MEDS: NIFEdipine XL 30 MG TAB PO SCH (08:26)
[2022-03-18] MEDS: Polyethylene Glycol 3350 17 GM Packet PO SCH (08:26)
[2022-03-18] MEDS: Metoprolol Tartrate 50 MG TAB PO SCH ×2 (08:26→20:37)
[2022-03-18] MEDS: Cyclobenzaprine 10 MG TAB PO SCH ×2 (08:26→20:37)
[2022-03-18] MEDS: Famotidine 20 MG TAB PO SCH (08:26)
[2022-03-18] MEDS: Aspirin 325 MG TAB PO SCH (08:26)
[2022-03-18] MEDS: levETIRAcetam 500 MG TAB PO SCH ×2 (08:27→20:37)
[2022-03-18] MEDS: Senokot S 8.6-50 MG TAB PO SCH ×2 (08:27→20:37)
[2022-03-18] MEDS: Vancomycin HCl 500 MG in Sodium Chloride 0.9% 100 ML IVPB SCH (12:53)
[2022-03-18] MEDS: Morphine 4 MG/ML VIAL SLOW IVP PRN (13:32)
[2022-03-18] MEDS: Escitalopram Oxalate 20 mg Tablet PO SCH (20:37)
[2022-03-19] MEDS: Vancomycin HCl 500 MG in Sodium Chloride 0.9% 100 ML IVPB SCH ×2 (00:01→13:06)
[2022-03-19] MEDS: Piperacillin/Tazobactam 3.375 GM in Sodium Chloride 0.9% 100 ML IVPB SCH ×3 (00:04→16:50)
[2022-03-19] MEDS: Metoprolol Tartrate 50 MG TAB PO SCH (05:48)
[2022-03-19 08:11] VITALS: BP 146/87; TEMP 97.9
[2022-03-19] MEDS ORDERED: levETIRAcetam 500 mg/5 ml Oral Solution PO SCH (09:00)
[2022-03-19] MEDS: Aspirin 325 MG TAB PO SCH (10:19)
[2022-03-19] MEDS: Cyclobenzaprine 10 MG TAB PO SCH (10:19)
[2022-03-19] MEDS: Senokot S 8.6-50 MG TAB PO SCH (10:20)
[2022-03-19] MEDS: Famotidine 20 MG TAB PO SCH (10:21)
[2022-03-19] MEDS: Ferrous Sulfate 325 MG TAB PO SCH (10:21)
[2022-03-19] MEDS: NIFEdipine XL 30 MG TAB PO SCH (10:22)
[2022-03-19] MEDS: Polyethylene Glycol 3350 17 GM Packet PO SCH (10:22)
[2022-03-19] MEDS: levETIRAcetam 500 MG TAB PO SCH (10:39)
== END 2022-03-19 17:12 | DRG 853 ==
LOC: ERS 15:29 → 2NO 18:27 → T4-B 03-14 18:46
PROVIDERS: ADMIT Internal Medicine; ATTEND Internal Medicine
PROC: 3E03329 Introduction of Other Anti-infective into Peripheral Vein, Percutaneous Approach (ICD-10-PCS; 2022-03-10)
PROC: 0KBN0ZZ Excision of Right Hip Muscle, Open Approach (ICD-10-PCS; principal; 2022-03-11)
PROC: 02HV33Z Insertion of Infusion Device into Superior Vena Cava, Percutaneous Approach (ICD-10-PCS; 2022-03-19)
PROC: B548ZZA Ultrasonography of Superior Vena Cava, Guidance (ICD-10-PCS; 2022-03-19)
DX: A41.9 Sepsis, unspecified organism (principal); E43 Unspecified severe protein-calorie malnutrition; E87.1 Hypo-osmolality and hyponatremia; I69.951 Hemiplegia and hemiparesis following unspecified cerebrovascular disease affecting right dominant side; N17.9 Acute kidney failure, unspecified; M86.18 Other acute osteomyelitis, other site; G93.40 Encephalopathy, unspecified; N18.4 Chronic kidney disease, stage 4 (severe); Z68.1 Body mass index [BMI] 19.9 or less, adult; Z20.822 Contact with and (suspected) exposure to COVID-19; D50.9 Iron deficiency anemia, unspecified; E78.5 Hyperlipidemia, unspecified; I12.9 Hypertensive chronic kidney disease with stage 1 through stage 4 chronic kidney disease, or unspecified chronic kidney disease; F14.10 Cocaine abuse, uncomplicated; K59.00 Constipation, unspecified; G40.909 Epilepsy, unspecified, not intractable, without status epilepticus; I69.991 Dysphagia following unspecified cerebrovascular disease; R13.10 Dysphagia, unspecified; Z79.82 Long term (current) use of aspirin; Z79.899 Other long term (current) drug therapy; I69.920 Aphasia following unspecified cerebrovascular disease; Z74.01 Bed confinement status
CPT/HCPCS: 36415; 36569; 71045; 74176; 80048; 80053; 80076; 80202; 82565; 83605; 83690; 83735; 85025; 85652; 86140; 87040; 87811; 88305; 96374; 96375; 97139; C1751; C1889; J1100; J2270; J2405; J2543; J2704; J3010; J3370; J3370-JW; J3490; J7050; J7070; U0002

== ENCOUNTER 2022-03-30 20:27 | Inpatient (IN) | payer MEDICARE, MEDICAID ==
[2022-03-30 21:27] LABS: #Eosinphils 0.1 thou/uL (0.0-0.7); #Lymphocytes 0.7 thou/uL (1.20-3.40); #Monocytes 0.6 thou/uL (0.11-0.59); #Neutrophils 5.8 thou/uL (1.40-6.50); %Basophils 0.2 % (0.0-1.0); %Eosinophils 1.2 % (0.0-10.0); %Lymphocytes 9.4 % (21.0-51.0); %Monocytes 7.8 % (0.0-10.0); %Neutrophils 81.3 % (42.0-75.0); Hemoglobin 7.1 g/dL (14.0-18.0); Mean Corpuscular HGB CONC 30.7 g/dL (32.0-36.0); Mean Corpuscular Hemoglobin 24.8 pg (27.0-31.0); Mean Corpuscular Volume 80.6 fl (78.0-98.0); Mean Platelet Volume 8.1 fL (7.4-10.4); Platelet Count 280 10x3/uL (130-400); RBC Distribution Width 19.2 % (11.5-14.5); Red Blood Cell (RBC) Count 2.87 mill/uL (4.70-6.10); White Blood Cell (WBC) Count 7.1 10x3/uL (4.8-10.8)
[2022-03-30 21:49] LABS: ALT (SGPT) 24 U/L (8-55); AST (SGOT) 53 U/L (5-34); Albumin 2.4 g/dL (3.4-4.8); Alkaline Phosphatase 117 U/L (40-110); Anion Gap 14 mmol/L (10-20); BUN (Urea Nitrogen) 25 mg/dL (8.4-25.7); Bilirubin, Total 0.3 mg/dL (0.2-1.2); CK (CPK) 208 U/L (30-200); Calc. Creatinine Clearance 0 mL/min (70-130); Calcium 8.9 mg/dL (7.8-10.44); Carbon Dioxide 18 mmol/L (23-31); Chloride 131 mmol/L (98-107); Estimated GFR 27; Globulin 4.8 g/dL (2.4-3.5); Glucose 89 mg/dL (80-115); Magnesium 2.2 mg/dL (1.6-2.6); Potassium 3.5 mmol/L (3.5-5.1); Protein, Total 7.2 g/dL (5.8-8.1)
[2022-03-30 21:51] LABS: Sodium 159 mmol/L (136-145)
[2022-03-30] MEDS ORDERED: Ondansetron PF 4 MG/2 ML Vial IVP PRN (23:12)
[2022-03-30] MEDS ORDERED: Ondansetron ODT 4 MG TAB PO PRN (23:12)
[2022-03-30] MEDS ORDERED: Dextrose 5% in Water 1,000 ML IV SCH (23:30)
[2022-03-31] MEDS ORDERED: Albumin 25% 25 GM/100 ML BOT IVPB SCH (00:15)
[2022-03-31 01:57] LABS: Vancomycin, Random 22.3 ug/mL (See Comment)
[2022-03-31] MEDS: Cyclobenzaprine 10 MG TAB PO SCH ×2 (02:29→23:59)
[2022-03-31] MEDS: levETIRAcetam 500 MG TAB PO SCH (02:30)
[2022-03-31] MEDS: Escitalopram Oxalate 20 mg Tablet PO SCH (02:30)
[2022-03-31] MEDS: Metoprolol Tartrate 50 MG TAB PO SCH (02:30)
[2022-03-31] MEDS ORDERED: Labetalol HCl 100 MG/20 ML VIAL SLOW IVP SCH (04:30)
[2022-03-31 05:44] LABS: #Eosinphils 0.1 thou/uL (0.0-0.7); #Lymphocytes 0.8 thou/uL (1.20-3.40); #Monocytes 0.5 thou/uL (0.11-0.59); %Basophils 0.4 % (0.0-1.0); %Eosinophils 1.9 % (0.0-10.0); %Lymphocytes 12.1 % (21.0-51.0); %Monocytes 8.3 % (0.0-10.0); %Neutrophils 77.3 % (42.0-75.0); Hemoglobin 6.1 g/dL (14.0-18.0); Mean Corpuscular HGB CONC 30.5 g/dL (32.0-36.0); Mean Corpuscular Hemoglobin 25.3 pg (27.0-31.0); Platelet Count 231 10x3/uL (130-400); RBC Distribution Width 19.4 % (11.5-14.5); Red Blood Cell (RBC) Count 2.42 mill/uL (4.70-6.10); White Blood Cell (WBC) Count 6.5 10x3/uL (4.8-10.8)
[2022-03-31 05:59] LABS: Anion Gap 12 mmol/L (10-20); BUN (Urea Nitrogen) 22 mg/dL (8.4-25.7); Calc. Creatinine Clearance 19 mL/min (70-130); Calcium 8.5 mg/dL (7.8-10.44); Carbon Dioxide 18 mmol/L (23-31); Chloride 132 mmol/L (98-107); Estimated GFR 31; Glucose 126 mg/dL (80-115); Potassium 3.2 mmol/L (3.5-5.1)
[2022-03-31 06:02] LABS: Sodium 159 mmol/L (136-145)
[2022-03-31] MEDS: metroNIDAZOLE 500 MG TAB PO SCH ×3 (08:03→21:05)
[2022-03-31] MEDS: Dextrose 5% in Water 1,000 ML IV SCH ×3 (08:07→20:49)
[2022-03-31 09:27] LABS: Anion Gap 11 mmol/L (10-20); BUN (Urea Nitrogen) 21 mg/dL (8.4-25.7); Calc. Creatinine Clearance 19 mL/min (70-130); Calcium 8.6 mg/dL (7.8-10.44); Carbon Dioxide 20 mmol/L (23-31); Chloride 128 mmol/L (98-107); Estimated GFR 32; Glucose 155 mg/dL (80-115)
[2022-03-31 09:35] LABS: Sodium 156 mmol/L (136-145)
[2022-03-31 12:24] LABS: Vancomycin, Random 19.9 ug/mL (See Comment)
[2022-03-31] MEDS ORDERED: Vancomycin Dose by Levels Sliding Scale (Wt <71) FS SCH (13:00)
[2022-03-31] MEDS ORDERED: Vancomycin HCl 250 MG in Sodium Chloride 0.9% 100 ML IV SCH (13:00)
[2022-03-31 16:24] LABS: Anion Gap 12 mmol/L (10-20); BUN (Urea Nitrogen) 20 mg/dL (8.4-25.7); Calc. Creatinine Clearance 20 mL/min (70-130); Calcium 8.5 mg/dL (7.8-10.44); Carbon Dioxide 18 mmol/L (23-31); Chloride 125 mmol/L (98-107); Estimated GFR 34; Glucose 103 mg/dL (80-115); Potassium 3.4 mmol/L (3.5-5.1)
[2022-03-31 16:29] LABS: Sodium 152 mmol/L (136-145)
[2022-04-01] MEDS: Metoprolol Tartrate 50 MG TAB PO SCH (00:01)
[2022-04-01] MEDS: Escitalopram Oxalate 20 mg Tablet PO SCH (00:01)
[2022-04-01] MEDS: levETIRAcetam 500 MG TAB PO SCH (00:01)
[2022-04-01 05:57] LABS: #Basophils 0.1 thou/uL (0.0-0.2); #Eosinphils 0.1 thou/uL (0.0-0.7); #Lymphocytes 1.2 thou/uL (1.20-3.40); #Monocytes 0.8 thou/uL (0.11-0.59); #Neutrophils 5.7 thou/uL (1.40-6.50); %Basophils 0.7 % (0.0-1.0); %Eosinophils 1.9 % (0.0-10.0); %Lymphocytes 15.1 % (21.0-51.0); %Monocytes 10.6 % (0.0-10.0); %Neutrophils 71.9 % (42.0-75.0); Hemoglobin 7.9 g/dL (14.0-18.0); Mean Corpuscular Hemoglobin 26.8 pg (27.0-31.0); Mean Corpuscular Volume 83.8 fl (78.0-98.0); Mean Platelet Volume 8.1 fL (7.4-10.4); Platelet Count 222 10x3/uL (130-400); RBC Distribution Width 18.2 % (11.5-14.5); Red Blood Cell (RBC) Count 2.93 mill/uL (4.70-6.10); White Blood Cell (WBC) Count 7.9 10x3/uL (4.8-10.8)
[2022-04-01] MEDS: Dextrose 5% in Water 1,000 ML IV SCH ×5 (06:10→15:22)
[2022-04-01] MEDS: metroNIDAZOLE 500 MG TAB PO SCH ×2 (09:07→22:15)
[2022-04-01] MEDS: cefTRIAXone\\ROCEPHIN 2 GM in Sodium Chloride 0.9% 100 ML IVPB SCH (09:07)
[2022-04-01 14:25] LABS: Vancomycin, Random 17.5 ug/mL (See Comment)
[2022-04-01] MEDS ORDERED: Vancomycin HCl 250 MG in Sodium Chloride 0.9% 100 ML IVPB SCH (14:45)
[2022-04-02] MEDS: Dextrose 5% in Water 1,000 ML IV SCH ×3 (04:18→15:07)
[2022-04-02 04:51] LABS: #Eosinphils 0.1 thou/uL (0.0-0.7); #Lymphocytes 0.8 thou/uL (1.20-3.40); #Monocytes 0.3 thou/uL (0.11-0.59); #Neutrophils 5.4 thou/uL (1.40-6.50); %Basophils 0.1 % (0.0-1.0); %Lymphocytes 11.9 % (21.0-51.0); %Monocytes 4.9 % (0.0-10.0); %Neutrophils 81.1 % (42.0-75.0); Hemoglobin 7.7 g/dL (14.0-18.0); Mean Corpuscular HGB CONC 32.2 g/dL (32.0-36.0); Mean Corpuscular Hemoglobin 26.1 pg (27.0-31.0); Mean Corpuscular Volume 81.3 fl (78.0-98.0); Mean Platelet Volume 8.6 fL (7.4-10.4); Platelet Count 212 10x3/uL (130-400); RBC Distribution Width 18.3 % (11.5-14.5); Red Blood Cell (RBC) Count 2.94 mill/uL (4.70-6.10); White Blood Cell (WBC) Count 6.6 10x3/uL (4.8-10.8)
[2022-04-02] MEDS: cefTRIAXone\\ROCEPHIN 2 GM in Sodium Chloride 0.9% 100 ML IVPB SCH (09:27)
[2022-04-02] MEDS: metroNIDAZOLE 500 MG TAB PO SCH ×2 (09:27→22:06)
[2022-04-02] MEDS ORDERED: Non-Formulary Item 1 EACH (Levetiracetam [Keppra] 1,000 MG Tablet) PO SCH (09:35)
[2022-04-02] MEDS ORDERED: NIFEdipine XL 30 MG TAB PO SCH ×2 (09:35→10:15)
[2022-04-02] MEDS ORDERED: Metoprolol Tartrate 50 MG TAB PO SCH ×2 (09:35→10:15)
[2022-04-02] MEDS ORDERED: Lisinopril 20 MG TAB PO SCH ×2 (09:35→10:00)
[2022-04-02] MEDS ORDERED: Potassium Chloride 10 MEQ TAB PO SCH ×2 (09:45)
[2022-04-02] MEDS ORDERED: levETIRAcetam 500 MG TAB PO SCH (10:15)
[2022-04-02] MEDS: Acetaminophen 325 MG TAB PO PRN (11:23)
[2022-04-02 11:30] LABS: Anion Gap 14 mmol/L (10-20); BUN (Urea Nitrogen) 16 mg/dL (8.4-25.7); Calc. Creatinine Clearance 32 mL/min (70-130); Calcium 9.2 mg/dL (7.8-10.44); Carbon Dioxide 19 mmol/L (23-31); Chloride 111 mmol/L (98-107); Estimated GFR 48; Glucose 115 mg/dL (80-115); Potassium 3.4 mmol/L (3.5-5.1); Sodium 141 mmol/L (136-145)
[2022-04-02 16:36] LABS: Vancomycin, Random 14.3 ug/mL (See Comment)
[2022-04-02] MEDS ORDERED: Vancomycin HCl 500 MG in Sodium Chloride 0.9% 100 ML IVPB SCH (17:00)
[2022-04-02] MEDS: Vancomycin HCl 750 MG in Sodium Chloride 0.9% 250 ML 250 ML IVPB SCH (17:26)
[2022-04-02] MEDS ORDERED: Non-Formulary Item 1 EACH (Escitalopram Oxalate [Lexapro] 5 MG Tablet) PO SCH (21:00)
[2022-04-02] MEDS: Escitalopram Oxalate 20 mg Tablet PO SCH (22:05)
[2022-04-02] MEDS: Metoprolol Tartrate 50 MG TAB PO SCH (22:06)
[2022-04-02] MEDS: levETIRAcetam 500 MG TAB PO SCH (22:06)
[2022-04-02] MEDS: Atorvastatin Calcium 40 MG TAB PO SCH (22:06)
[2022-04-02] MEDS: Lisinopril 20 MG TAB PO SCH (22:06)
[2022-04-03] MEDS: Dextrose 5% in Water 1,000 ML IV SCH ×2 (01:17→21:54)
[2022-04-03 05:13] LABS: Anion Gap 11 mmol/L (10-20); BUN (Urea Nitrogen) 15 mg/dL (8.4-25.7); Calc. Creatinine Clearance 43 mL/min (70-130); Calcium 8.3 mg/dL (7.8-10.44); Carbon Dioxide 20 mmol/L (23-31); Chloride 110 mmol/L (98-107); Estimated GFR 68; Glucose 114 mg/dL (80-115); Sodium 138 mmol/L (136-145)
[2022-04-03 05:44] LABS: Iron 29 ug/dL (65-175)
[2022-04-03] MEDS ORDERED: Potassium Chloride 20 MEQ TAB PO SCH (09:30)
[2022-04-03] MEDS: NIFEdipine XL 30 MG TAB PO SCH ×2 (09:40→09:45)
[2022-04-03] MEDS: cefTRIAXone\\ROCEPHIN 2 GM in Sodium Chloride 0.9% 100 ML IVPB SCH (09:40)
[2022-04-03] MEDS: Metoprolol Tartrate 50 MG TAB PO SCH ×2 (09:41→21:40)
[2022-04-03] MEDS: metroNIDAZOLE 500 MG TAB PO SCH ×2 (09:41→21:40)
[2022-04-03] MEDS: levETIRAcetam 500 MG TAB PO SCH ×2 (09:41→21:40)
[2022-04-03] MEDS: Lisinopril 20 MG TAB PO SCH ×2 (09:41→21:40)
[2022-04-03] MEDS: Potassium Chloride 20 MEQ TAB PO SCH ×2 (09:42→17:10)
[2022-04-03] MEDS: Vancomycin HCl 750 MG in Sodium Chloride 0.9% 250 ML 250 ML IVPB SCH (17:10)
[2022-04-03] MEDS: NIFEdipine 10 MG CAP PO SCH ×2 (17:10→21:40)
[2022-04-03] MEDS ORDERED: Nystatin 500,000 UNITS/5 ML UDCUP SSW SCH (21:00)
[2022-04-03] MEDS: Escitalopram Oxalate 20 mg Tablet PO SCH (21:40)
[2022-04-03] MEDS: Atorvastatin Calcium 40 MG TAB PO SCH (21:40)
[2022-04-04 06:09] LABS: Anion Gap 13 mmol/L (10-20); BUN (Urea Nitrogen) 14 mg/dL (8.4-25.7); Calc. Creatinine Clearance 39 mL/min (70-130); Calcium 8.8 mg/dL (7.8-10.44); Carbon Dioxide 18 mmol/L (23-31); Chloride 113 mmol/L (98-107); Estimated GFR 61; Glucose 85 mg/dL (80-115); Potassium 4.4 mmol/L (3.5-5.1); Sodium 140 mmol/L (136-145)
[2022-04-04] MEDS: Dextrose 5% in Water 1,000 ML IV SCH ×2 (07:34→21:12)
[2022-04-04] MEDS: NIFEdipine 10 MG CAP PO SCH ×2 (09:53→16:20)
[2022-04-04] MEDS: cefTRIAXone\\ROCEPHIN 2 GM in Sodium Chloride 0.9% 100 ML IVPB SCH (09:53)
[2022-04-04] MEDS: Metoprolol Tartrate 50 MG TAB PO SCH ×2 (09:53→20:53)
[2022-04-04] MEDS: Lisinopril 20 MG TAB PO SCH ×2 (09:53→20:53)
[2022-04-04] MEDS: metroNIDAZOLE 500 MG TAB PO SCH ×2 (09:53→20:54)
[2022-04-04] MEDS: levETIRAcetam 500 MG TAB PO SCH ×2 (09:53→20:54)
[2022-04-04] MEDS ORDERED: Amlodipine 10 MG TAB PO SCH (11:00)
[2022-04-04] MEDS: Iron, Sodium Ferric Gluconate 125 MG in Sodium Chloride 0.9% 100 ML IVPB SCH (11:46)
[2022-04-04 16:41] LABS: Vancomycin, Trough 17.9 ug/mL
[2022-04-04] MEDS ORDERED: hydrALAZINE 10 MG TAB PO PRN (16:50)
[2022-04-04] MEDS: Vancomycin HCl 750 MG in Sodium Chloride 0.9% 250 ML 250 ML IVPB SCH (17:48)
[2022-04-04] MEDS: Escitalopram Oxalate 20 mg Tablet PO SCH (20:53)
[2022-04-04] MEDS: Atorvastatin Calcium 40 MG TAB PO SCH (20:54)
[2022-04-05 05:33] LABS: Anion Gap 12 mmol/L (10-20); BUN (Urea Nitrogen) 13 mg/dL (8.4-25.7); Calc. Creatinine Clearance 38 mL/min (70-130); Calcium 8.8 mg/dL (7.8-10.44); Carbon Dioxide 19 mmol/L (23-31); Chloride 112 mmol/L (98-107); Estimated GFR 59; Glucose 104 mg/dL (80-115); Potassium 3.6 mmol/L (3.5-5.1); Sodium 139 mmol/L (136-145)
[2022-04-05] MEDS ORDERED: Amlodipine 10 MG TAB PO SCH (09:00)
[2022-04-05 09:18] LABS: Anion Gap 13 mmol/L (10-20); BUN (Urea Nitrogen) 12 mg/dL (8.4-25.7); Calc. Creatinine Clearance 39 mL/min (70-130); Calcium 8.7 mg/dL (7.8-10.44); Carbon Dioxide 17 mmol/L (23-31); Chloride 112 mmol/L (98-107); Estimated GFR 58; Glucose 107 mg/dL (80-115); Potassium 3.7 mmol/L (3.5-5.1); Sodium 138 mmol/L (136-145)
[2022-04-05 09:46] LABS: #Eosinphils 0.1 thou/uL (0.0-0.7); #Lymphocytes 0.9 thou/uL (1.20-3.40); #Monocytes 0.5 thou/uL (0.11-0.59); #Neutrophils 5.5 thou/uL (1.40-6.50); %Eosinophils 0.8 % (0.0-10.0); %Lymphocytes 13.2 % (21.0-51.0); %Monocytes 7.6 % (0.0-10.0); %Neutrophils 78.4 % (42.0-75.0); Mean Corpuscular Hemoglobin 26.1 pg (27.0-31.0); Mean Corpuscular Volume 81.4 fl (78.0-98.0); Mean Platelet Volume 9.6 fL (7.4-10.4); Platelet Count 209 10x3/uL (130-400); RBC Distribution Width 19.4 % (11.5-14.5); Red Blood Cell (RBC) Count 3.05 mill/uL (4.70-6.10)
[2022-04-05] MEDS: metroNIDAZOLE 500 MG TAB PO SCH ×2 (10:14→21:42)
[2022-04-05] MEDS: Iron, Sodium Ferric Gluconate 125 MG in Sodium Chloride 0.9% 100 ML IVPB SCH (10:14)
[2022-04-05] MEDS: levETIRAcetam 500 MG TAB PO SCH ×2 (10:15→21:42)
[2022-04-05] MEDS: Lisinopril 20 MG TAB PO SCH ×2 (10:15→21:50)
[2022-04-05] MEDS: Metoprolol Tartrate 50 MG TAB PO SCH ×2 (10:15→21:50)
[2022-04-05] MEDS: Dextrose 5% in Water 1,000 ML IV SCH (10:31)
[2022-04-05] MEDS: cefTRIAXone\\ROCEPHIN 2 GM in Sodium Chloride 0.9% 100 ML IVPB SCH (11:56)
[2022-04-05 12:49] VITALS: BMI 17.6
[2022-04-05] MEDS: NIFEdipine XL 90 MG TAB PO SCH (15:38)
[2022-04-05] MEDS: Vancomycin HCl 750 MG in Sodium Chloride 0.9% 250 ML 250 ML IVPB SCH (16:57)
[2022-04-05] MEDS: Atorvastatin Calcium 40 MG TAB PO SCH (21:41)
[2022-04-05] MEDS: Escitalopram Oxalate 20 mg Tablet PO SCH (21:42)
[2022-04-06 08:19] LABS: Anion Gap 14 mmol/L (10-20); BUN (Urea Nitrogen) 10 mg/dL (8.4-25.7); Calc. Creatinine Clearance 37 mL/min (70-130); Calcium 8.6 mg/dL (7.8-10.44); Carbon Dioxide 17 mmol/L (23-31); Chloride 110 mmol/L (98-107); Estimated GFR 55; Glucose 99 mg/dL (80-115); Potassium 3.4 mmol/L (3.5-5.1); Sodium 138 mmol/L (136-145)
[2022-04-06] MEDS: Iron, Sodium Ferric Gluconate 125 MG in Sodium Chloride 0.9% 100 ML IVPB SCH (08:56)
[2022-04-06] MEDS: Metoprolol Tartrate 50 MG TAB PO SCH ×2 (08:57→20:43)
[2022-04-06] MEDS: metroNIDAZOLE 500 MG TAB PO SCH ×2 (08:57→20:43)
[2022-04-06] MEDS: Lisinopril 20 MG TAB PO SCH (09:00)
[2022-04-06] MEDS: levETIRAcetam 500 MG TAB PO SCH (09:14)
[2022-04-06] MEDS ORDERED: Potassium Chloride 20 MEQ TAB PO SCH (09:30)
[2022-04-06] MEDS: cefTRIAXone\\ROCEPHIN 2 GM in Sodium Chloride 0.9% 100 ML IVPB SCH (09:49)
[2022-04-06] MEDS: Dextrose 5% in Water 1,000 ML IV SCH ×2 (09:53→22:37)
[2022-04-06 16:56] LABS: Vancomycin, Trough 24.2 ug/mL
[2022-04-06] MEDS: Vancomycin HCl 750 MG in Sodium Chloride 0.9% 250 ML 250 ML IVPB SCH (18:37)
[2022-04-06] MEDS: Escitalopram Oxalate 20 mg Tablet PO SCH (20:43)
[2022-04-06] MEDS: Atorvastatin Calcium 40 MG TAB PO SCH (20:43)
[2022-04-06] MEDS: Vancomycin HCl 500 MG in Sodium Chloride 0.9% 100 ML IVPB SCH (20:43)
[2022-04-06] MEDS: levETIRAcetam 500 MG/5 ML VIAL SLOW IVP SCH (20:43)
[2022-04-07] MEDS: metroNIDAZOLE 500 MG TAB PO SCH ×2 (09:36→21:04)
[2022-04-07] MEDS: Dronabinol 2.5 MG CAP PO SCH ×3 (09:36→17:33)
[2022-04-07] MEDS: Metoprolol Tartrate 50 MG TAB PO SCH ×2 (09:36→21:04)
[2022-04-07] MEDS: cefTRIAXone\\ROCEPHIN 2 GM in Sodium Chloride 0.9% 100 ML IVPB SCH (09:37)
[2022-04-07] MEDS: levETIRAcetam 500 MG/5 ML VIAL SLOW IVP SCH ×2 (09:37→21:05)
[2022-04-07] MEDS: Dextrose 5% in Water 1,000 ML IV SCH (11:09)
[2022-04-07] MEDS: D5W-AA 4.25% with LYTES 1,000 ML IV SCH (15:27)
[2022-04-07] MEDS: Atorvastatin Calcium 40 MG TAB PO SCH (21:04)
[2022-04-07] MEDS: Escitalopram Oxalate 20 mg Tablet PO SCH (21:04)
[2022-04-07] MEDS: Vancomycin HCl 500 MG in Sodium Chloride 0.9% 100 ML IVPB SCH (21:18)
[2022-04-08 05:16] LABS: #Lymphocytes 0.7 thou/uL (1.20-3.40); #Monocytes 0.8 thou/uL (0.11-0.59); %Basophils 0.6 % (0.0-1.0); %Eosinophils 0.7 % (0.0-10.0); %Lymphocytes 12.7 % (21.0-51.0); %Monocytes 13.7 % (0.0-10.0); %Neutrophils 72.4 % (42.0-75.0); Hemoglobin 7.6 g/dL (14.0-18.0); Mean Corpuscular HGB CONC 32.9 g/dL (32.0-36.0); Mean Corpuscular Hemoglobin 27.4 pg (27.0-31.0); Mean Corpuscular Volume 83.3 fl (78.0-98.0); Mean Platelet Volume 8.6 fL (7.4-10.4); Platelet Count 229 10x3/uL (130-400); RBC Distribution Width 20.4 % (11.5-14.5); Red Blood Cell (RBC) Count 2.79 mill/uL (4.70-6.10); White Blood Cell (WBC) Count 5.5 10x3/uL (4.8-10.8)
[2022-04-08 05:42] LABS: Albumin 2.2 g/dL (3.4-4.8); Anion Gap 11 mmol/L (10-20); BUN (Urea Nitrogen) 13 mg/dL (8.4-25.7); BUN/Creatinine Ratio 10.66; Calc. Creatinine Clearance 42 mL/min (70-130); Calcium 8.8 mg/dL (7.8-10.44); Carbon Dioxide 21 mmol/L (23-31); Chloride 111 mmol/L (98-107); Estimated GFR 64; Glucose 101 mg/dL (80-115); Phosphorus 2.3 mg/dL (2.3-4.7); Potassium 3.5 mmol/L (3.5-5.1); Sodium 139 mmol/L (136-145)
[2022-04-08] MEDS: levETIRAcetam 500 MG/5 ML VIAL SLOW IVP SCH ×2 (09:28→21:55)
[2022-04-08] MEDS: Dronabinol 2.5 MG CAP PO SCH ×2 (09:28→16:58)
[2022-04-08] MEDS: Metoprolol Tartrate 50 MG TAB PO SCH ×2 (09:29→21:55)
[2022-04-08] MEDS: metroNIDAZOLE 500 MG TAB PO SCH ×2 (09:29→21:55)
[2022-04-08] MEDS: cefTRIAXone\\ROCEPHIN 2 GM in Sodium Chloride 0.9% 100 ML IVPB SCH (09:47)
[2022-04-08] MEDS: D5W-AA 4.25% with LYTES 1,000 ML IV SCH (13:21)
[2022-04-08 20:54] LABS: Vancomycin, Trough 22.4 ug/mL
[2022-04-08] MEDS: Escitalopram Oxalate 20 mg Tablet PO SCH (21:55)
[2022-04-08] MEDS: Atorvastatin Calcium 40 MG TAB PO SCH (21:55)
[2022-04-08] MEDS: Vancomycin HCl 500 MG in Sodium Chloride 0.9% 100 ML IVPB SCH (22:26)
[2022-04-09] MEDS: Dronabinol 2.5 MG CAP PO SCH ×2 (08:06→16:36)
[2022-04-09] MEDS: metroNIDAZOLE 500 MG TAB PO SCH ×2 (08:06→22:02)
[2022-04-09] MEDS: Metoprolol Tartrate 50 MG TAB PO SCH ×2 (08:06→22:02)
[2022-04-09] MEDS: cefTRIAXone\\ROCEPHIN 2 GM in Sodium Chloride 0.9% 100 ML IVPB SCH (08:07)
[2022-04-09] MEDS: levETIRAcetam 500 MG/5 ML VIAL SLOW IVP SCH ×2 (08:07→22:02)
[2022-04-09] MEDS: Vancomycin 1 GM in Premix Bag 1 BAG IVPB SCH (09:34)
[2022-04-09] MEDS: D5W-AA 4.25% with LYTES 1,000 ML IV SCH (09:34)
[2022-04-09] MEDS: Escitalopram Oxalate 20 mg Tablet PO SCH (22:02)
[2022-04-09] MEDS: Atorvastatin Calcium 40 MG TAB PO SCH (22:02)
[2022-04-10] MEDS: D5W-AA 4.25% with LYTES 1,000 ML IV SCH (05:34)
[2022-04-10 06:11] LABS: #Lymphocytes 0.7 thou/uL (1.20-3.40); #Monocytes 0.6 thou/uL (0.11-0.59); #Neutrophils 5.5 thou/uL (1.40-6.50); %Basophils 0.1 % (0.0-1.0); %Eosinophils 0.3 % (0.0-10.0); %Lymphocytes 10.5 % (21.0-51.0); %Monocytes 9.2 % (0.0-10.0); Hemoglobin 7.3 g/dL (14.0-18.0); Mean Corpuscular HGB CONC 32.2 g/dL (32.0-36.0); Mean Corpuscular Hemoglobin 27.1 pg (27.0-31.0); Mean Corpuscular Volume 84.1 fl (78.0-98.0); Mean Platelet Volume 8.6 fL (7.4-10.4); Platelet Count 223 10x3/uL (130-400); RBC Distribution Width 21.6 % (11.5-14.5); White Blood Cell (WBC) Count 6.8 10x3/uL (4.8-10.8)
[2022-04-10 06:29] LABS: Chloride 111 mmol/L (98-107); Potassium 4.2 mmol/L (3.5-5.1); Sodium 138 mmol/L (136-145)
[2022-04-10 06:30] LABS: Glucose 99 mg/dL (80-115)
[2022-04-10 06:32] LABS: Anion Gap 15 mmol/L (10-20); Carbon Dioxide 16 mmol/L (23-31)
[2022-04-10 06:34] LABS: BUN (Urea Nitrogen) 21 mg/dL (8.4-25.7); Calc. Creatinine Clearance 41 mL/min (70-130); Estimated GFR 63
[2022-04-10] MEDS: levETIRAcetam 500 MG/5 ML VIAL SLOW IVP SCH ×2 (08:11→21:29)
[2022-04-10] MEDS: Dronabinol 2.5 MG CAP PO SCH ×3 (08:11→16:31)
[2022-04-10] MEDS: metroNIDAZOLE 500 MG TAB PO SCH ×2 (08:12→21:30)
[2022-04-10] MEDS: Metoprolol Tartrate 50 MG TAB PO SCH ×2 (08:12→21:29)
[2022-04-10] MEDS: cefTRIAXone\\ROCEPHIN 2 GM in Sodium Chloride 0.9% 100 ML IVPB SCH (08:13)
[2022-04-10] MEDS: Atorvastatin Calcium 40 MG TAB PO SCH (21:29)
[2022-04-10] MEDS: Escitalopram Oxalate 20 mg Tablet PO SCH (21:29)
[2022-04-11] MEDS: D5W-AA 4.25% with LYTES 1,000 ML IV SCH (02:49)
[2022-04-11 05:38] LABS: #Lymphocytes 0.7 thou/uL (1.20-3.40); #Monocytes 0.6 thou/uL (0.11-0.59); #Neutrophils 4.9 thou/uL (1.40-6.50); %Basophils 0.4 % (0.0-1.0); %Eosinophils 0.4 % (0.0-10.0); %Lymphocytes 11.3 % (21.0-51.0); %Monocytes 8.9 % (0.0-10.0); %Neutrophils 79.1 % (42.0-75.0); Mean Corpuscular HGB CONC 32.7 g/dL (32.0-36.0); Mean Corpuscular Hemoglobin 27.4 pg (27.0-31.0); Mean Corpuscular Volume 83.7 fl (78.0-98.0); Mean Platelet Volume 7.9 fL (7.4-10.4); Platelet Count 237 10x3/uL (130-400); RBC Distribution Width 21.7 % (11.5-14.5); Red Blood Cell (RBC) Count 2.55 mill/uL (4.70-6.10); White Blood Cell (WBC) Count 6.2 10x3/uL (4.8-10.8)
[2022-04-11 05:53] LABS: Anion Gap 13 mmol/L (10-20); BUN (Urea Nitrogen) 25 mg/dL (8.4-25.7); Calc. Creatinine Clearance 38 mL/min (70-130); Calcium 8.8 mg/dL (7.8-10.44); Carbon Dioxide 20 mmol/L (23-31); Chloride 110 mmol/L (98-107); Estimated GFR 57; Glucose 121 mg/dL (80-115); Potassium 3.7 mmol/L (3.5-5.1); Sodium 139 mmol/L (136-145)
[2022-04-11] MEDS: Dronabinol 2.5 MG CAP PO SCH ×2 (08:10→15:51)
[2022-04-11] MEDS: cefTRIAXone\\ROCEPHIN 2 GM in Sodium Chloride 0.9% 100 ML IVPB SCH (08:12)
[2022-04-11] MEDS: levETIRAcetam 500 MG/5 ML VIAL SLOW IVP SCH ×2 (09:22→22:07)
[2022-04-11] MEDS: Lisinopril 20 MG TAB PO SCH ×3 (09:23→22:39)
[2022-04-11] MEDS: Metoprolol Tartrate 50 MG TAB PO SCH ×3 (09:23→22:39)
[2022-04-11] MEDS: metroNIDAZOLE 500 MG TAB PO SCH ×2 (09:31→22:40)
[2022-04-11] MEDS: Vancomycin 1 GM in Premix Bag 1 BAG IVPB SCH (09:40)
[2022-04-11] MEDS: Escitalopram Oxalate 20 mg Tablet PO SCH (22:39)
[2022-04-11] MEDS: Atorvastatin Calcium 40 MG TAB PO SCH (22:39)
[2022-04-12] MEDS: D5W-AA 4.25% with LYTES 1,000 ML IV SCH ×2 (01:45→22:41)
[2022-04-12] MEDS ORDERED: Labetalol HCl 100 MG/20 ML VIAL SLOW IVP SCH (04:00)
[2022-04-12 05:31] LABS: #Lymphocytes 0.8 thou/uL (1.20-3.40); #Monocytes 0.5 thou/uL (0.11-0.59); #Neutrophils 4.3 thou/uL (1.40-6.50); %Basophils 0.5 % (0.0-1.0); %Eosinophils 0.6 % (0.0-10.0); %Lymphocytes 13.8 % (21.0-51.0); %Monocytes 8.8 % (0.0-10.0); %Neutrophils 76.3 % (42.0-75.0); Hemoglobin 7.1 g/dL (14.0-18.0); Mean Corpuscular HGB CONC 32.6 g/dL (32.0-36.0); Mean Corpuscular Hemoglobin 27.2 pg (27.0-31.0); Mean Corpuscular Volume 83.4 fl (78.0-98.0); Mean Platelet Volume 7.6 fL (7.4-10.4); Platelet Count 230 10x3/uL (130-400); RBC Distribution Width 21.5 % (11.5-14.5); Red Blood Cell (RBC) Count 2.59 mill/uL (4.70-6.10); White Blood Cell (WBC) Count 5.6 10x3/uL (4.8-10.8)
[2022-04-12 05:51] LABS: Anion Gap 14 mmol/L (10-20); BUN (Urea Nitrogen) 29 mg/dL (8.4-25.7); Calc. Creatinine Clearance 39 mL/min (70-130); Calcium 8.9 mg/dL (7.8-10.44); Carbon Dioxide 21 mmol/L (23-31); Chloride 109 mmol/L (98-107); Estimated GFR 59; Glucose 111 mg/dL (80-115); Potassium 3.9 mmol/L (3.5-5.1); Sodium 140 mmol/L (136-145)
[2022-04-12] MEDS: Metoprolol Tartrate 50 MG TAB PO SCH ×2 (08:32→20:08)
[2022-04-12] MEDS: metroNIDAZOLE 500 MG TAB PO SCH ×2 (08:32→20:08)
[2022-04-12] MEDS: Lisinopril 20 MG TAB PO SCH ×2 (08:32→20:08)
[2022-04-12] MEDS: NIFEdipine XL 90 MG TAB PO SCH (08:32)
[2022-04-12] MEDS: levETIRAcetam 500 MG/5 ML VIAL SLOW IVP SCH ×2 (08:33→20:08)
[2022-04-12] MEDS: Dronabinol 2.5 MG CAP PO SCH ×2 (08:41→15:36)
[2022-04-12] MEDS: cefTRIAXone\\ROCEPHIN 2 GM in Sodium Chloride 0.9% 100 ML IVPB SCH (09:09)
[2022-04-12] MEDS: cloNIDine 0.1mg/24 Hour PATCH TD SCH (11:55)
[2022-04-12] MEDS: Atorvastatin Calcium 40 MG TAB PO SCH (20:07)
[2022-04-12] MEDS: Escitalopram Oxalate 20 mg Tablet PO SCH (20:08)
[2022-04-13] MEDS: Dronabinol 2.5 MG CAP PO SCH ×2 (07:35→18:21)
[2022-04-13] MEDS: levETIRAcetam 500 MG/5 ML VIAL SLOW IVP SCH ×2 (08:24→22:05)
[2022-04-13] MEDS: cefTRIAXone\\ROCEPHIN 2 GM in Sodium Chloride 0.9% 100 ML IVPB SCH (08:25)
[2022-04-13] MEDS: Metoprolol Tartrate 50 MG TAB PO SCH ×2 (08:26→22:06)
[2022-04-13] MEDS: Lisinopril 20 MG TAB PO SCH ×2 (08:26→22:06)
[2022-04-13] MEDS: metroNIDAZOLE 500 MG TAB PO SCH ×2 (08:26→22:05)
[2022-04-13 08:36] LABS: Vancomycin, Trough 19.7 ug/mL
[2022-04-13] MEDS: Vancomycin 1 GM in Premix Bag 1 BAG IVPB SCH (08:39)
[2022-04-13] MEDS: NIFEdipine XL 90 MG TAB PO SCH (08:45)
[2022-04-13] MEDS: Acetaminophen 325 MG TAB PO PRN (12:24)
[2022-04-13] MEDS: D5W-AA 4.25% with LYTES 1,000 ML IV SCH (17:56)
[2022-04-13] MEDS: Escitalopram Oxalate 20 mg Tablet PO SCH (22:06)
[2022-04-13] MEDS: Mirtazapine 15 MG TAB PO SCH (22:06)
[2022-04-13] MEDS: Atorvastatin Calcium 40 MG TAB PO SCH (22:06)
[2022-04-14 05:38] LABS: #Lymphocytes 0.8 thou/uL (1.20-3.40); #Monocytes 0.9 thou/uL (0.11-0.59); #Neutrophils 4.4 thou/uL (1.40-6.50); %Basophils 0.2 % (0.0-1.0); %Eosinophils 0.8 % (0.0-10.0); %Lymphocytes 12.5 % (21.0-51.0); %Monocytes 14.3 % (0.0-10.0); %Neutrophils 72.3 % (42.0-75.0); Hemoglobin 8.2 g/dL (14.0-18.0); Mean Corpuscular Hemoglobin 27.8 pg (27.0-31.0); Mean Corpuscular Volume 86.9 fl (78.0-98.0); Mean Platelet Volume 8.2 fL (7.4-10.4); Platelet Count 208 10x3/uL (130-400); RBC Distribution Width 21.5 % (11.5-14.5); Red Blood Cell (RBC) Count 2.96 mill/uL (4.70-6.10)
[2022-04-14 05:55] LABS: Anion Gap 14 mmol/L (10-20); BUN (Urea Nitrogen) 29 mg/dL (8.4-25.7); Calc. Creatinine Clearance 46 mL/min (70-130); Calcium 8.9 mg/dL (7.8-10.44); Carbon Dioxide 18 mmol/L (23-31); Chloride 110 mmol/L (98-107); Estimated GFR 71; Glucose 85 mg/dL (80-115); Potassium 4.3 mmol/L (3.5-5.1); Sodium 138 mmol/L (136-145)
[2022-04-14] MEDS: Dronabinol 2.5 MG CAP PO SCH (09:48)
[2022-04-14] MEDS: cefTRIAXone\\ROCEPHIN 2 GM in Sodium Chloride 0.9% 100 ML IVPB SCH (09:51)
[2022-04-14] MEDS: levETIRAcetam 500 MG/5 ML VIAL SLOW IVP SCH ×2 (09:52→21:22)
[2022-04-14] MEDS: NIFEdipine XL 90 MG TAB PO SCH (09:52)
[2022-04-14] MEDS: Lisinopril 20 MG TAB PO SCH ×3 (09:56→21:22)
[2022-04-14] MEDS: metroNIDAZOLE 500 MG TAB PO SCH ×3 (09:56→23:17)
[2022-04-14] MEDS: Metoprolol Tartrate 50 MG TAB PO SCH ×3 (09:56→21:40)
[2022-04-14] MEDS ORDERED: Metoprolol Tartrate 5 MG/5 ML VIAL IVP SCH ×2 (12:45→21:00)
[2022-04-14] MEDS ORDERED: Megestrol Acetate 800 MG/20 ML UDCUP PO SCH (15:15)
[2022-04-14] MEDS: D5W-AA 4.25% with LYTES 1,000 ML IV SCH (17:24)
[2022-04-14] MEDS: Escitalopram Oxalate 20 mg Tablet PO SCH ×2 (21:22→21:23)
[2022-04-14] MEDS: Atorvastatin Calcium 40 MG TAB PO SCH ×2 (21:22→21:23)
[2022-04-14] MEDS: Mirtazapine 15 MG TAB PO SCH ×2 (21:23→23:17)
[2022-04-14] MEDS ORDERED: Labetalol HCl 100 MG/20 ML VIAL SLOW IVP SCH (23:45)
[2022-04-15] MEDS: NIFEdipine XL 90 MG TAB PO SCH (07:39)
[2022-04-15 08:51] LABS: Vancomycin, Trough 19.8 ug/mL
[2022-04-15] MEDS: Lisinopril 20 MG TAB PO SCH ×2 (09:37→21:26)
[2022-04-15] MEDS: levETIRAcetam 500 MG/5 ML VIAL SLOW IVP SCH ×2 (09:37→21:25)
[2022-04-15] MEDS: Metoprolol Tartrate 50 MG TAB PO SCH ×2 (09:37→21:26)
[2022-04-15] MEDS: metroNIDAZOLE 500 MG TAB PO SCH ×2 (09:37→21:26)
[2022-04-15] MEDS: Megestrol Acetate 800 MG/20 ML UDCUP PO SCH (09:38)
[2022-04-15] MEDS: cefTRIAXone\\ROCEPHIN 2 GM in Sodium Chloride 0.9% 100 ML IVPB SCH (09:38)
[2022-04-15] MEDS: Vancomycin 1 GM in Premix Bag 1 BAG IVPB SCH (10:31)
[2022-04-15] MEDS: D5W-AA 4.25% with LYTES 1,000 ML IV SCH (17:01)
[2022-04-15] MEDS: Escitalopram Oxalate 20 mg Tablet PO SCH (21:25)
[2022-04-15] MEDS: Atorvastatin Calcium 40 MG TAB PO SCH (21:26)
[2022-04-15] MEDS: Mirtazapine 15 MG TAB PO SCH (21:26)
[2022-04-15] MEDS: Acetaminophen 325 MG TAB PO PRN (21:33)
[2022-04-16] MEDS: cefTRIAXone\\ROCEPHIN 2 GM in Sodium Chloride 0.9% 100 ML IVPB SCH (09:36)
[2022-04-16] MEDS: Lisinopril 20 MG TAB PO SCH ×3 (09:37→21:39)
[2022-04-16] MEDS: Metoprolol Tartrate 50 MG TAB PO SCH ×3 (09:37→21:39)
[2022-04-16] MEDS: Megestrol Acetate 800 MG/20 ML UDCUP PO SCH (09:37)
[2022-04-16] MEDS: levETIRAcetam 500 MG/5 ML VIAL SLOW IVP SCH ×2 (09:37→20:59)
[2022-04-16] MEDS: NIFEdipine XL 90 MG TAB PO SCH ×2 (09:38)
[2022-04-16] MEDS: metroNIDAZOLE 500 MG TAB PO SCH ×3 (09:38→21:39)
[2022-04-16] MEDS: D5W-AA 4.25% with LYTES 1,000 ML IV SCH (14:06)
[2022-04-16] MEDS: Escitalopram Oxalate 20 mg Tablet PO SCH ×2 (20:59→21:39)
[2022-04-16] MEDS: Atorvastatin Calcium 40 MG TAB PO SCH ×2 (20:59→21:39)
[2022-04-16] MEDS: Mirtazapine 15 MG TAB PO SCH ×2 (21:00→21:39)
[2022-04-17] MEDS: cefTRIAXone\\ROCEPHIN 2 GM in Sodium Chloride 0.9% 100 ML IVPB SCH (09:37)
[2022-04-17 09:57] LABS: Vancomycin, Trough 17.1 ug/mL
[2022-04-17] MEDS: NIFEdipine XL 90 MG TAB PO SCH (10:00)
[2022-04-17] MEDS: metroNIDAZOLE 500 MG TAB PO SCH ×2 (10:05→21:08)
[2022-04-17] MEDS: Metoprolol Tartrate 50 MG TAB PO SCH ×2 (10:05→21:07)
[2022-04-17] MEDS: Megestrol Acetate 800 MG/20 ML UDCUP PO SCH (10:05)
[2022-04-17] MEDS: Lisinopril 20 MG TAB PO SCH ×2 (10:06→21:08)
[2022-04-17] MEDS: levETIRAcetam 500 MG/5 ML VIAL SLOW IVP SCH ×2 (10:09→21:08)
[2022-04-17] MEDS: Vancomycin 1 GM in Premix Bag 1 BAG IVPB SCH (10:12)
[2022-04-17] MEDS: D5W-AA 4.25% with LYTES 1,000 ML IV SCH (14:38)
[2022-04-17] MEDS: Escitalopram Oxalate 20 mg Tablet PO SCH (21:07)
[2022-04-17] MEDS: Atorvastatin Calcium 40 MG TAB PO SCH (21:07)
[2022-04-17] MEDS: Mirtazapine 15 MG TAB PO SCH (21:07)
[2022-04-18] MEDS: cefTRIAXone\\ROCEPHIN 2 GM in Sodium Chloride 0.9% 100 ML IVPB SCH (09:39)
[2022-04-18] MEDS: Metoprolol Tartrate 50 MG TAB PO SCH ×2 (09:47→20:52)
[2022-04-18] MEDS: Lisinopril 20 MG TAB PO SCH ×2 (09:47→20:52)
[2022-04-18] MEDS: metroNIDAZOLE 500 MG TAB PO SCH ×2 (09:47→20:52)
[2022-04-18] MEDS: levETIRAcetam 500 MG/5 ML VIAL SLOW IVP SCH ×2 (09:51→20:51)
[2022-04-18] MEDS: NIFEdipine XL 90 MG TAB PO SCH (09:52)
[2022-04-18] MEDS: Megestrol Acetate 800 MG/20 ML UDCUP PO SCH (09:52)
[2022-04-18] MEDS: D5W-AA 4.25% with LYTES 1,000 ML IV SCH (13:04)
[2022-04-18] MEDS: Atorvastatin Calcium 40 MG TAB PO SCH (20:51)
[2022-04-18] MEDS: Mirtazapine 15 MG TAB PO SCH (20:52)
[2022-04-18] MEDS: Escitalopram Oxalate 20 mg Tablet PO SCH (20:52)
[2022-04-19] MEDS: Lisinopril 20 MG TAB PO SCH ×2 (08:47→20:33)
[2022-04-19] MEDS: Lansoprazole 15 MG/5 ML (BATCHED)UDCUP PO SCH (08:47)
[2022-04-19] MEDS: Metoprolol Tartrate 50 MG TAB PO SCH ×2 (08:47→20:36)
[2022-04-19] MEDS: levETIRAcetam 500 MG/5 ML VIAL SLOW IVP SCH ×2 (08:47→20:41)
[2022-04-19] MEDS: Megestrol Acetate 800 MG/20 ML UDCUP PO SCH (08:47)
[2022-04-19] MEDS: metroNIDAZOLE 500 MG TAB PO SCH ×2 (08:48→20:41)
[2022-04-19] MEDS: NIFEdipine XL 90 MG TAB PO SCH (09:51)
[2022-04-19] MEDS: cefTRIAXone\\ROCEPHIN 2 GM in Sodium Chloride 0.9% 100 ML IVPB SCH (10:05)
[2022-04-19] MEDS: Vancomycin 1 GM in Premix Bag 1 BAG IVPB SCH (10:25)
[2022-04-19] MEDS: D5W-AA 4.25% with LYTES 1,000 ML IV SCH (11:40)
[2022-04-19] MEDS: cloNIDine 0.1mg/24 Hour PATCH TD SCH (13:47)
[2022-04-19] MEDS: Mirtazapine 15 MG TAB PO SCH (20:33)
[2022-04-19] MEDS: Atorvastatin Calcium 40 MG TAB PO SCH (20:38)
[2022-04-19] MEDS: Escitalopram Oxalate 20 mg Tablet PO SCH (20:41)
[2022-04-20] MEDS: hydrALAZINE 20 MG/ML VIAL SLOW IVP PRN (01:09)
[2022-04-20 05:59] LABS: #Eosinphils 0.1 thou/uL (0.0-0.7); #Lymphocytes 0.9 thou/uL (1.20-3.40); #Monocytes 0.5 thou/uL (0.11-0.59); #Neutrophils 4.8 thou/uL (1.40-6.50); %Basophils 0.6 % (0.0-1.0); %Monocytes 7.8 % (0.0-10.0); %Neutrophils 76.7 % (42.0-75.0); Hemoglobin 7.6 g/dL (14.0-18.0); Mean Corpuscular Hemoglobin 28.6 pg (27.0-31.0); Mean Corpuscular Volume 86.8 fl (78.0-98.0); Platelet Count 223 10x3/uL (130-400); Red Blood Cell (RBC) Count 2.65 mill/uL (4.70-6.10); White Blood Cell (WBC) Count 6.2 10x3/uL (4.8-10.8)
[2022-04-20 06:24] LABS: Anion Gap 14 mmol/L (10-20); BUN (Urea Nitrogen) 35 mg/dL (8.4-25.7); Calc. Creatinine Clearance 41 mL/min (70-130); Calcium 9.2 mg/dL (7.8-10.44); Carbon Dioxide 18 mmol/L (23-31); Chloride 111 mmol/L (98-107); Estimated GFR 62; Glucose 81 mg/dL (80-115); Potassium 4.5 mmol/L (3.5-5.1); Sodium 138 mmol/L (136-145)
[2022-04-20] MEDS: Megestrol Acetate 800 MG/20 ML UDCUP PO SCH (07:48)
[2022-04-20] MEDS: levETIRAcetam 500 MG/5 ML VIAL SLOW IVP SCH ×2 (07:48→21:32)
[2022-04-20] MEDS: Metoprolol Tartrate 50 MG TAB PO SCH ×2 (07:48→21:26)
[2022-04-20] MEDS: Lisinopril 20 MG TAB PO SCH ×2 (07:48→21:23)
[2022-04-20] MEDS: cefTRIAXone\\ROCEPHIN 2 GM in Sodium Chloride 0.9% 100 ML IVPB SCH (07:49)
[2022-04-20] MEDS: Lansoprazole 15 MG/5 ML (BATCHED)UDCUP PO SCH (07:49)
[2022-04-20] MEDS: D5W-AA 4.25% with LYTES 1,000 ML IV SCH (15:43)
[2022-04-20] MEDS: Mirtazapine 15 MG TAB PO SCH (21:23)
[2022-04-20] MEDS: Atorvastatin Calcium 40 MG TAB PO SCH (21:29)
[2022-04-20] MEDS: Escitalopram Oxalate 20 mg Tablet PO SCH (21:32)
[2022-04-21 08:51] LABS: Vancomycin, Trough 19.2 ug/mL
[2022-04-21] MEDS: cefTRIAXone\\ROCEPHIN 2 GM in Sodium Chloride 0.9% 100 ML IVPB SCH (10:20)
[2022-04-21] MEDS: Vancomycin 1 GM in Premix Bag 1 BAG IVPB SCH (10:20)
[2022-04-21] MEDS: levETIRAcetam 500 MG/5 ML VIAL SLOW IVP SCH ×2 (10:21→20:43)
[2022-04-21] MEDS: Lisinopril 20 MG TAB PO SCH ×2 (10:21→20:43)
[2022-04-21] MEDS: Megestrol Acetate 800 MG/20 ML UDCUP PO SCH ×2 (10:21→10:34)
[2022-04-21] MEDS: Lansoprazole 15 MG/5 ML (BATCHED)UDCUP PO SCH (10:22)
[2022-04-21] MEDS: Metoprolol Tartrate 50 MG TAB PO SCH ×2 (10:22→20:43)
[2022-04-21] MEDS: D5W-AA 4.25% with LYTES 1,000 ML IV SCH (12:12)
[2022-04-21] MEDS: Escitalopram Oxalate 20 mg Tablet PO SCH (20:43)
[2022-04-21] MEDS: Mirtazapine 15 MG TAB PO SCH (20:43)
[2022-04-21] MEDS: Atorvastatin Calcium 40 MG TAB PO SCH (20:44)
[2022-04-22] MEDS: hydrALAZINE 20 MG/ML VIAL SLOW IVP PRN (00:49)
[2022-04-22] MEDS: Megestrol Acetate 800 MG/20 ML UDCUP PO SCH (09:26)
[2022-04-22] MEDS: Lisinopril 20 MG TAB PO SCH ×2 (09:26→21:51)
[2022-04-22] MEDS: levETIRAcetam 500 MG/5 ML VIAL SLOW IVP SCH ×2 (09:26→21:51)
[2022-04-22] MEDS: Lansoprazole 15 MG/5 ML (BATCHED)UDCUP PO SCH (09:26)
[2022-04-22] MEDS: Metoprolol Tartrate 50 MG TAB PO SCH ×2 (09:27→21:51)
[2022-04-22] MEDS: cefTRIAXone\\ROCEPHIN 2 GM in Sodium Chloride 0.9% 100 ML IVPB SCH (09:27)
[2022-04-22] MEDS: D5W-AA 4.25% with LYTES 1,000 ML IV SCH (10:08)
[2022-04-22] MEDS: Mirtazapine 15 MG TAB PO SCH (21:51)
[2022-04-22] MEDS: Escitalopram Oxalate 20 mg Tablet PO SCH (21:51)
[2022-04-22] MEDS: Atorvastatin Calcium 40 MG TAB PO SCH (21:51)
[2022-04-23] MEDS: D5W-AA 4.25% with LYTES 1,000 ML IV SCH (09:41)
[2022-04-23] MEDS: cefTRIAXone\\ROCEPHIN 2 GM in Sodium Chloride 0.9% 100 ML IVPB SCH (09:41)
[2022-04-23] MEDS: levETIRAcetam 500 MG/5 ML VIAL SLOW IVP SCH ×2 (09:42→21:47)
[2022-04-23] MEDS: Lansoprazole 15 MG/5 ML (BATCHED)UDCUP PO SCH (09:42)
[2022-04-23] MEDS: Megestrol Acetate 800 MG/20 ML UDCUP PO SCH (09:42)
[2022-04-23] MEDS: Lisinopril 20 MG TAB PO SCH ×2 (09:43→22:02)
[2022-04-23] MEDS: Metoprolol Tartrate 50 MG TAB PO SCH ×2 (09:43→22:02)
[2022-04-23] MEDS: Vancomycin 1 GM in Premix Bag 1 BAG IVPB SCH (10:42)
[2022-04-23] MEDS: Atorvastatin Calcium 40 MG TAB PO SCH (22:01)
[2022-04-23] MEDS: Escitalopram Oxalate 20 mg Tablet PO SCH (22:01)
[2022-04-23] MEDS: Mirtazapine 15 MG TAB PO SCH (22:02)
[2022-04-24] MEDS: D5W-AA 4.25% with LYTES 1,000 ML IV SCH (06:29)
[2022-04-24 09:24] VITALS: TEMP 97.5
[2022-04-24] MEDS: cefTRIAXone\\ROCEPHIN 2 GM in Sodium Chloride 0.9% 100 ML IVPB SCH (09:47)
[2022-04-24] MEDS: Metoprolol Tartrate 50 MG TAB PO SCH (09:48)
[2022-04-24] MEDS: Lisinopril 20 MG TAB PO SCH (09:48)
[2022-04-24] MEDS: levETIRAcetam 500 MG/5 ML VIAL SLOW IVP SCH (09:48)
[2022-04-24] MEDS: Megestrol Acetate 800 MG/20 ML UDCUP PO SCH (09:49)
[2022-04-24] MEDS: Lansoprazole 15 MG/5 ML (BATCHED)UDCUP PO SCH (09:49)
[2022-04-24 09:50] VITALS: BP 149/88
== END 2022-04-24 13:27 | DRG 682 ==
LOC: ERS 20:27 → MSONC 22:54 → OBSVTOIN 03-31 06:09
PROVIDERS: ADMIT Internal Medicine; ATTEND Family Medicine
DX: N17.9 Acute kidney failure, unspecified (principal); G93.41 Metabolic encephalopathy; E87.0 Hyperosmolality and hypernatremia; I69.951 Hemiplegia and hemiparesis following unspecified cerebrovascular disease affecting right dominant side; Z68.1 Body mass index [BMI] 19.9 or less, adult; M86.18 Other acute osteomyelitis, other site; R64 Cachexia; E44.0 Moderate protein-calorie malnutrition; E87.20 Acidosis, unspecified; Z51.5 Encounter for palliative care; I12.9 Hypertensive chronic kidney disease with stage 1 through stage 4 chronic kidney disease, or unspecified chronic kidney disease; N18.30 Chronic kidney disease, stage 3 unspecified; M19.90 Unspecified osteoarthritis, unspecified site; E78.5 Hyperlipidemia, unspecified; E86.0 Dehydration; E88.09 Other disorders of plasma-protein metabolism, not elsewhere classified; F14.10 Cocaine abuse, uncomplicated; D50.9 Iron deficiency anemia, unspecified; R13.10 Dysphagia, unspecified; E87.6 Hypokalemia; E87.8 Other disorders of electrolyte and fluid balance, not elsewhere classified; D63.1 Anemia in chronic kidney disease; E11.69 Type 2 diabetes mellitus with other specified complication; R62.7 Adult failure to thrive; I69.920 Aphasia following unspecified cerebrovascular disease; Z79.82 Long term (current) use of aspirin; Z79.899 Other long term (current) drug therapy; Z98.890 Other specified postprocedural states; I69.991 Dysphagia following unspecified cerebrovascular disease; Z87.891 Personal history of nicotine dependence
CPT/HCPCS: 36415; 36430; 80048; 80069; 80202; 82274; 82550; 82565; 82728; 83540; 83605; 83735; 85025; 86850; 86900; 86901; 87811; 93005; 96374; 96375; 97139; G0378; J0360; J0696; J1953; J2916; J3370; J3370-JW; J3371; J3490; J7050; J7070; P9016; P9047; Q0167; U0003; U0005

== ENCOUNTER 2022-04-30 08:09 | Inpatient (IN) | payer MEDICARE, MEDICAID ==
[2022-04-30 08:45] LABS: #Lymphocytes 0.9 thou/uL (1.20-3.40); #Monocytes 0.4 thou/uL (0.11-0.59); #Neutrophils 5.1 thou/uL (1.40-6.50); %Basophils 0.2 % (0.0-1.0); %Eosinophils 0.2 % (0.0-10.0); %Lymphocytes 14.2 % (21.0-51.0); %Monocytes 6.2 % (0.0-10.0); %Neutrophils 79.1 % (42.0-75.0); Hemoglobin 8.9 g/dL (14.0-18.0); Mean Corpuscular Volume 90.3 fl (78.0-98.0); Mean Platelet Volume 8.6 fL (7.4-10.4); Platelet Count 327 10x3/uL (130-400); RBC Distribution Width 20.5 % (11.5-14.5); Red Blood Cell (RBC) Count 3.18 mill/uL (4.70-6.10); White Blood Cell (WBC) Count 6.5 10x3/uL (4.8-10.8)
[2022-04-30] MEDS ORDERED: Vancomycin 1 GM/200 ML (FROZEN) BAG ONE (09:00)
[2022-04-30 09:12] LABS: SARS-CoV-2 NAA Rapid Test Not Detected (NotDetected)
[2022-04-30 09:12] LABS: ALT (SGPT) 16 U/L (8-55); AST (SGOT) 32 U/L (5-34); Albumin 3.3 g/dL (3.4-4.8); Alkaline Phosphatase 120 U/L (40-110); Anion Gap 19 mmol/L (10-20); BUN (Urea Nitrogen) 53 mg/dL (8.4-25.7); Bilirubin, Total 0.4 mg/dL (0.2-1.2); Calc. Creatinine Clearance 0 mL/min (70-130); Calcium 10.3 mg/dL (7.8-10.44); Carbon Dioxide 13 mmol/L (23-31); Chloride 121 mmol/L (98-107); Estimated GFR 17; Globulin 4.7 g/dL (2.4-3.5); Glucose 90 mg/dL (80-115); Lipase 90 U/L (8-78); Potassium 4.7 mmol/L (3.5-5.1); Sodium 148 mmol/L (136-145)
[2022-04-30 09:42] LABS: Base Excess -10.7 mEq/L (-2.0 to +3.0); Calcium, Ionized (venous) 1.14 mmol/L (1.16-1.32); Chloride (VBG) 121 mmol/L (98-106); Hemoglobin (Hb) 10.3 g/dL (12.6-17.4); Potassium (VBG) 4.76 mmol/L (3.70-5.30); Sodium 149.6 mmol/L (133-146); pH (venous) 7.38 (7.32-7.43)
[2022-04-30 09:44] LABS: Actual Bicarbonate (HCO3v) 12 mEq/L (22-28)
[2022-04-30 10:03] LABS: CKMB 8.7 ng/mL (0-6.6)
[2022-04-30 11:36] LABS: Lactic Acid 3.1 mmol/L (0.5-2.2)
[2022-04-30] MEDS ORDERED: Sodium Bicarbonate 150 MEQ in Dextrose 5% in Water 1,000 ML IV SCH (12:00)
[2022-04-30 12:24] LABS: Troponin I 0.022 ng/mL (< 0.028)
[2022-04-30 15:12] LABS: Troponin I 0.016 ng/mL (< 0.028)
[2022-04-30] MEDS: Heparin 5,000 UNITS/ML VIAL SC SCH ×2 (16:04→21:25)
[2022-04-30] MEDS: Metoprolol Tartrate 50 MG TAB PO SCH (21:23)
[2022-04-30] MEDS: Escitalopram Oxalate 20 mg Tablet PO SCH (21:23)
[2022-04-30] MEDS: Atorvastatin Calcium 40 MG TAB PO SCH (21:23)
[2022-04-30] MEDS: levETIRAcetam 500 MG TAB PO SCH (21:23)
[2022-04-30] MEDS: Mirtazapine 15 MG TAB PO SCH (21:24)
[2022-04-30] MEDS ORDERED: Sodium Chloride 0.45% 1,000 ML IV SCH (23:30)
[2022-04-30] MEDS ORDERED: Sodium Chloride 0.9% 1,000 ML IV SCH (23:30)
[2022-05-01 04:36] LABS: #Lymphocytes 0.6 thou/uL (1.20-3.40); #Monocytes 0.4 thou/uL (0.11-0.59); #Neutrophils 3.9 thou/uL (1.40-6.50); %Basophils 0.5 % (0.0-1.0); %Eosinophils 0.7 % (0.0-10.0); %Lymphocytes 12.2 % (21.0-51.0); %Neutrophils 78.5 % (42.0-75.0); Hemoglobin 6.9 g/dL (14.0-18.0); Mean Corpuscular HGB CONC 33.4 g/dL (32.0-36.0); Mean Corpuscular Hemoglobin 29.3 pg (27.0-31.0); Mean Corpuscular Volume 87.6 fl (78.0-98.0); Mean Platelet Volume 9.2 fL (7.4-10.4); Platelet Count 207 10x3/uL (130-400); RBC Distribution Width 20.2 % (11.5-14.5); Red Blood Cell (RBC) Count 2.36 mill/uL (4.70-6.10); White Blood Cell (WBC) Count 4.9 10x3/uL (4.8-10.8)
[2022-05-01 04:43] LABS: Anion Gap 12 mmol/L (10-20); BUN (Urea Nitrogen) 46 mg/dL (8.4-25.7); Calc. Creatinine Clearance 13 mL/min (70-130); Carbon Dioxide 19 mmol/L (23-31); Chloride 119 mmol/L (98-107); Estimated GFR 23; Glucose 81 mg/dL (80-115); Potassium 3.3 mmol/L (3.5-5.1); Sodium 147 mmol/L (136-145)
[2022-05-01] MEDS ORDERED: Potassium Chloride 20 MEQ TAB PO SCH (09:00)
[2022-05-01] MEDS: Dextrose 5% in Water 1,000 ML IV SCH ×2 (09:42→17:48)
[2022-05-01] MEDS: Famotidine 20 MG TAB PO SCH (10:33)
[2022-05-01] MEDS: levETIRAcetam 500 MG TAB PO SCH ×2 (10:33→20:07)
[2022-05-01] MEDS: Aspirin 325 MG TAB PO SCH (10:33)
[2022-05-01] MEDS: NIFEdipine XL 30 MG TAB PO SCH (10:38)
[2022-05-01] MEDS: Megestrol Acetate 800 MG/20 ML UDCUP PO SCH (10:38)
[2022-05-01] MEDS: Metoprolol Tartrate 50 MG TAB PO SCH ×2 (10:38→20:07)
[2022-05-01] MEDS: Heparin 5,000 UNITS/ML VIAL SC SCH ×3 (10:49→20:06)
[2022-05-01] MEDS: Potassium Chloride 20 MEQ in Premix Bag 1 BAG IVPB SCH ×2 (10:50→13:10)
[2022-05-01] MEDS: Doxycycline 100 MG in Sodium Chloride 0.9% 100 ML IVPB SCH (15:37)
[2022-05-01] MEDS: Atorvastatin Calcium 40 MG TAB PO SCH (20:06)
[2022-05-01] MEDS: Escitalopram Oxalate 20 mg Tablet PO SCH (20:06)
[2022-05-01] MEDS: Mirtazapine 15 MG TAB PO SCH (20:07)
[2022-05-01] MEDS ORDERED: Doxycycline 100 MG in Syringe 0 ML IVPB SCH (21:00)
[2022-05-01] MEDS ORDERED: levETIRAcetam 500 MG/5 ML VIAL SLOW IVP SCH (21:00)
[2022-05-02 01:09] LABS: Bacteria/HPF None Seen HPF (None Seen); Bilirubin Negative (Negative); Blood, Urine 3+ (Negative); CAUTI Indications for Culture Fever or rigors; Clarity Turbid (Clear); Glucose, Urine (Dipstick) Normal (Negative); Ketone, Urine Negative (Negative); Leukocyte 500 Leu/uL (Negative); Nitrite Negative (Negative); Protein, Urine (Dipstick) 50 mg/dL (Neg-Trace); RBC/HPF Greater than 50 HPF (0-3); Specific Gravity, Urine 1.012 (1.002-1.036); Squamous Epithelial None Seen HPF (0-3); Urobilinogen Normal mg/dL (Less than 2); WBC/HPF Greater than 50 HPF (0-3); pH, Urine 6.5 (5.0-9.0)
[2022-05-02 01:10] LABS: Urine Culture Reflex Yes Yes
[2022-05-02] MEDS: Doxycycline 100 MG in Sodium Chloride 0.9% 100 ML IVPB SCH ×2 (02:17→17:02)
[2022-05-02] MEDS: Dextrose 5% in Water 1,000 ML IV SCH ×3 (02:18→22:19)
[2022-05-02 03:59] LABS: #Lymphocytes 0.8 thou/uL (1.20-3.40); #Monocytes 0.5 thou/uL (0.11-0.59); #Neutrophils 3.6 thou/uL (1.40-6.50); %Basophils 0.3 % (0.0-1.0); %Eosinophils 0.8 % (0.0-10.0); %Lymphocytes 16.7 % (21.0-51.0); %Monocytes 9.9 % (0.0-10.0); %Neutrophils 72.3 % (42.0-75.0); Hemoglobin 7.3 g/dL (14.0-18.0); Mean Corpuscular HGB CONC 32.6 g/dL (32.0-36.0); Mean Corpuscular Hemoglobin 29.2 pg (27.0-31.0); Mean Corpuscular Volume 89.5 fl (78.0-98.0); Mean Platelet Volume 9.1 fL (7.4-10.4); Platelet Count 172 10x3/uL (130-400); RBC Distribution Width 20.4 % (11.5-14.5)
[2022-05-02 04:25] LABS: Anion Gap 14 mmol/L (10-20); BUN (Urea Nitrogen) 36 mg/dL (8.4-25.7); Calc. Creatinine Clearance 19 mL/min (70-130); Carbon Dioxide 16 mmol/L (23-31); Chloride 118 mmol/L (98-107); Estimated GFR 34; Glucose 77 mg/dL (80-115); Magnesium 1.6 mg/dL (1.6-2.6); Sodium 144 mmol/L (136-145)
[2022-05-02] MEDS ORDERED: fentaNYL PF 100 MCG/2 ML SYRINGE ONE (06:59)
[2022-05-02] MEDS ORDERED: Neomycin-Polymyxin 1 ML AMP ONE (07:01)
[2022-05-02] MEDS ORDERED: Sodium Chloride 0.9% 0 ML ONE (07:34)
[2022-05-02] MEDS ORDERED: CEFAZOLIN 2 GM VIAL ONE (07:34)
[2022-05-02] MEDS ORDERED: Lidocaine 1% PF 5 ML VIAL ONE (07:51)
[2022-05-02] MEDS ORDERED: Rocuronium Bromide 10 MG/ML (10ML VIAL) ONE (07:51)
[2022-05-02] MEDS ORDERED: NEOSTIGMINE 3 MG/3 ML SYR 3 MG/3 ML SYRINGE ONE (07:51)
[2022-05-02] MEDS ORDERED: PHENYLEPHRINE-NS 100 MCG/ML 10 ML SYRINGE ONE (07:51)
[2022-05-02] MEDS ORDERED: PROPOFOL 200 MG/20 ML VIAL ONE (07:51)
[2022-05-02] MEDS ORDERED: Glycopyrrolate 0.2 MG/ML 5 ML SYRINGE ONE (07:51)
[2022-05-02] MEDS ORDERED: Ondansetron PF 4 MG/2 ML Vial ONE (09:03)
[2022-05-02] MEDS ORDERED: Sodium Phosphate 30 MMOL in Sodium Chloride 0.9% 250 ML 250 ML IVPB SCH (09:30)
[2022-05-02] MEDS: Famotidine 20 MG TAB PO SCH (11:42)
[2022-05-02] MEDS: Aspirin 325 MG TAB PO SCH (11:42)
[2022-05-02] MEDS: Heparin 5,000 UNITS/ML VIAL SC SCH ×3 (11:43→22:20)
[2022-05-02] MEDS: Megestrol Acetate 800 MG/20 ML UDCUP PO SCH (11:44)
[2022-05-02] MEDS: Metoprolol Tartrate 50 MG TAB PO SCH ×2 (11:44→20:47)
[2022-05-02] MEDS: levETIRAcetam 500 MG TAB PO SCH ×2 (11:44→20:47)
[2022-05-02] MEDS: NIFEdipine XL 30 MG TAB PO SCH (11:44)
[2022-05-02] MEDS: Atorvastatin Calcium 40 MG TAB PO SCH (20:46)
[2022-05-02] MEDS: Mirtazapine 15 MG TAB PO SCH (20:47)
[2022-05-02] MEDS: Escitalopram Oxalate 20 mg Tablet PO SCH (20:47)
[2022-05-03] MEDS: Doxycycline 100 MG in Sodium Chloride 0.9% 100 ML IVPB SCH ×2 (05:06→17:11)
[2022-05-03 06:56] LABS: #Lymphocytes 0.8 thou/uL (1.20-3.40); #Monocytes 0.5 thou/uL (0.11-0.59); %Basophils 0.7 % (0.0-1.0); %Eosinophils 0.4 % (0.0-10.0); %Lymphocytes 14.6 % (21.0-51.0); %Monocytes 9.8 % (0.0-10.0); %Neutrophils 74.5 % (42.0-75.0); Hemoglobin 8.9 g/dL (14.0-18.0); Mean Corpuscular HGB CONC 30.3 g/dL (32.0-36.0); Mean Corpuscular Hemoglobin 28.9 pg (27.0-31.0); Mean Corpuscular Volume 95.2 fl (78.0-98.0); Mean Platelet Volume 9.7 fL (7.4-10.4); Platelet Count 145 10x3/uL (130-400); Red Blood Cell (RBC) Count 3.08 mill/uL (4.70-6.10); White Blood Cell (WBC) Count 5.4 10x3/uL (4.8-10.8)
[2022-05-03 07:14] LABS: Anion Gap 16 mmol/L (10-20); BUN (Urea Nitrogen) 26 mg/dL (8.4-25.7); Calc. Creatinine Clearance 0 mL/min (70-130); Calcium 8.5 mg/dL (7.8-10.44); Carbon Dioxide 14 mmol/L (23-31); Chloride 112 mmol/L (98-107); Estimated GFR 52; Glucose 75 mg/dL (80-115); Magnesium 1.3 mg/dL (1.6-2.6); Potassium 3.8 mmol/L (3.5-5.1); Sodium 138 mmol/L (136-145)
[2022-05-03 07:16] LABS: Phosphorus 3.4 mg/dL (2.3-4.7)
[2022-05-03] MEDS ORDERED: Magnesium 2 GM/50 ML(in water) 2 GM in Premix Bag 1 BAG IVPB SCH (07:45)
[2022-05-03 08:06] LABS: Burr Cells MODERATE= 6-15 cells (100X) (0-1/hpf); MDiff Complete? YES; Platelet Morphology Comment Appears Adequate; Polychromasia SLIGHT = 2-3 cells (100X) (0-2/hpf); Schistocytes SLIGHT = 2-5 cells (100X) (0-1/hpf)
[2022-05-03] MEDS: NIFEdipine XL 30 MG TAB PO SCH (10:36)
[2022-05-03] MEDS: Metoprolol Tartrate 50 MG TAB PO SCH ×2 (10:37→21:14)
[2022-05-03] MEDS: Aspirin 325 MG TAB PO SCH (10:37)
[2022-05-03] MEDS: Famotidine 20 MG TAB PO SCH (10:37)
[2022-05-03] MEDS: Megestrol Acetate 800 MG/20 ML UDCUP PO SCH (10:38)
[2022-05-03] MEDS: Heparin 5,000 UNITS/ML VIAL SC SCH ×3 (10:38→21:14)
[2022-05-03] MEDS ORDERED: levETIRAcetam 500 mg/5 ml Oral Solution PO SCH (10:45)
[2022-05-03] MEDS: levETIRAcetam 500 MG TAB PO SCH (10:49)
[2022-05-03] MEDS: Dextrose 5% in Water 1,000 ML IV SCH ×2 (10:49→11:35)
[2022-05-03] MEDS: levETIRAcetam 500 mg/5 ml Oral Solution PO SCH (21:13)
[2022-05-03] MEDS: Mirtazapine 15 MG TAB PO SCH (21:14)
[2022-05-03] MEDS: Escitalopram Oxalate 20 mg Tablet PO SCH (21:14)
[2022-05-03] MEDS: Atorvastatin Calcium 40 MG TAB PO SCH (21:14)
[2022-05-04] MEDS: Doxycycline 100 MG in Sodium Chloride 0.9% 100 ML IVPB SCH ×2 (03:31→14:20)
[2022-05-04] MEDS: Dextrose 5% in Water 1,000 ML IV SCH (03:32)
[2022-05-04 07:40] LABS: Hemoglobin 9.3 g/dL (14.0-18.0); Mean Corpuscular HGB CONC 31.6 g/dL (32.0-36.0); Mean Corpuscular Hemoglobin 28.8 pg (27.0-31.0); Mean Platelet Volume 9.9 fL (7.4-10.4); Platelet Count 164 10x3/uL (130-400); RBC Distribution Width 20.2 % (11.5-14.5); Red Blood Cell (RBC) Count 3.22 mill/uL (4.70-6.10); White Blood Cell (WBC) Count 6.9 10x3/uL (4.8-10.8)
[2022-05-04 07:43] LABS: Anion Gap 16 mmol/L (10-20); BUN (Urea Nitrogen) 25 mg/dL (8.4-25.7); Calc. Creatinine Clearance 37 mL/min (70-130); Calcium 8.3 mg/dL (7.8-10.44); Carbon Dioxide 14 mmol/L (23-31); Chloride 109 mmol/L (98-107); Estimated GFR 71; Glucose 72 mg/dL (80-115); Magnesium 1.7 mg/dL (1.6-2.6); Potassium 4.1 mmol/L (3.5-5.1); Sodium 135 mmol/L (136-145)
[2022-05-04 08:02] LABS: Phosphorus 2.6 mg/dL (2.3-4.7)
[2022-05-04] MEDS ORDERED: Sodium Bicarbonate 150 MEQ in Dextrose 5% in Water 1,000 ML IV SCH (10:00)
[2022-05-04] MEDS: levETIRAcetam 500 mg/5 ml Oral Solution PO SCH ×2 (10:04→21:15)
[2022-05-04] MEDS: Famotidine 20 MG TAB PO SCH (10:04)
[2022-05-04] MEDS: Aspirin 325 MG TAB PO SCH (10:04)
[2022-05-04] MEDS: NIFEdipine XL 30 MG TAB PO SCH (10:04)
[2022-05-04] MEDS: Megestrol Acetate 800 MG/20 ML UDCUP PO SCH (10:04)
[2022-05-04] MEDS: Metoprolol Tartrate 50 MG TAB PO SCH ×2 (10:05→21:15)
[2022-05-04] MEDS: Heparin 5,000 UNITS/ML VIAL SC SCH ×3 (10:05→21:14)
[2022-05-04 10:43] LABS: #Lymphocytes 0.8 thou/uL (1.20-3.40); #Monocytes 0.8 thou/uL (0.11-0.59); #Neutrophils 5.3 thou/uL (1.40-6.50); %Basophils 0.4 % (0.0-1.0); %Eosinophils 0.5 % (0.0-10.0); %Lymphocytes 11.1 % (21.0-51.0); %Monocytes 11.6 % (0.0-10.0); %Neutrophils 76.5 % (42.0-75.0); Anisocytosis SLIGHT = 6-15 cells (100X) (0-5/hpf); Burr Cells MODERATE= 6-15 cells (100X) (0-1/hpf); MDiff Complete? YES; Ovalocytes SLIGHT = 2-5 cells (100X) (0-1/hpf); Platelet Morphology Comment Appears Adequate; Polychromasia SLIGHT = 2-3 cells (100X) (0-2/hpf)
[2022-05-04] MEDS: Atorvastatin Calcium 40 MG TAB PO SCH (21:14)
[2022-05-04] MEDS: Escitalopram Oxalate 20 mg Tablet PO SCH (21:15)
[2022-05-04] MEDS: Mirtazapine 15 MG TAB PO SCH (21:15)
[2022-05-05] MEDS: Doxycycline 100 MG in Sodium Chloride 0.9% 100 ML IVPB SCH ×2 (02:50→15:46)
[2022-05-05 08:25] LABS: Anion Gap 10 mmol/L (10-20); BUN (Urea Nitrogen) 24 mg/dL (8.4-25.7); Calc. Creatinine Clearance 44 mL/min (70-130); Calcium 8.5 mg/dL (7.8-10.44); Carbon Dioxide 25 mmol/L (23-31); Chloride 106 mmol/L (98-107); Estimated GFR 85; Glucose 92 mg/dL (80-115); Phosphorus 1.6 mg/dL (2.3-4.7); Potassium 3.5 mmol/L (3.5-5.1); Sodium 137 mmol/L (136-145)
[2022-05-05] MEDS: Heparin 5,000 UNITS/ML VIAL SC SCH ×3 (09:23→19:56)
[2022-05-05] MEDS: Aspirin 325 MG TAB PO SCH (09:23)
[2022-05-05] MEDS: NIFEdipine XL 30 MG TAB PO SCH (09:23)
[2022-05-05] MEDS: Famotidine 20 MG TAB PO SCH (09:23)
[2022-05-05] MEDS: Metoprolol Tartrate 50 MG TAB PO SCH ×2 (09:23→19:56)
[2022-05-05] MEDS: Megestrol Acetate 800 MG/20 ML UDCUP PO SCH (09:23)
[2022-05-05] MEDS: levETIRAcetam 500 mg/5 ml Oral Solution PO SCH ×2 (09:25→19:55)
[2022-05-05] MEDS ORDERED: Potassium Chloride 20 MEQ TAB PO SCH (11:30)
[2022-05-05] MEDS ORDERED: Potassium Bicarbonate/Cit Ac 20 MEQ TAB PO SCH (12:00)
[2022-05-05] MEDS: Dextrose 5% in Water 1,000 ML IV SCH (12:41)
[2022-05-05] MEDS: Mirtazapine 15 MG TAB PO SCH (19:55)
[2022-05-05] MEDS: Atorvastatin Calcium 40 MG TAB PO SCH (19:56)
[2022-05-05] MEDS: Escitalopram Oxalate 20 mg Tablet PO SCH (19:56)
[2022-05-05] MEDS: Ondansetron PF 4 MG/2 ML Vial IVP PRN (20:16)
[2022-05-05] MEDS ORDERED: Ondansetron PF 4 MG/2 ML Vial IVP PRN (20:31)
[2022-05-05] MEDS ORDERED: Ondansetron PF 4 MG/2 ML Vial IVP SCH (20:45)
[2022-05-06] MEDS: Doxycycline 100 MG in Sodium Chloride 0.9% 100 ML IVPB SCH ×2 (02:27→15:12)
[2022-05-06 07:00] LABS: Phosphorus 1.9 mg/dL (2.3-4.7)
[2022-05-06] MEDS: Dextrose 5% in Water 1,000 ML IV SCH ×2 (08:54→21:28)
[2022-05-06] MEDS: Heparin 5,000 UNITS/ML VIAL SC SCH ×3 (08:55→21:31)
[2022-05-06] MEDS: Aspirin 325 MG TAB PO SCH (08:56)
[2022-05-06] MEDS: Megestrol Acetate 800 MG/20 ML UDCUP PO SCH (08:56)
[2022-05-06] MEDS: levETIRAcetam 500 mg/5 ml Oral Solution PO SCH ×2 (08:56→21:30)
[2022-05-06] MEDS: Metoprolol Tartrate 50 MG TAB PO SCH ×2 (08:56→21:30)
[2022-05-06] MEDS: Famotidine 20 MG TAB PO SCH (08:56)
[2022-05-06] MEDS ORDERED: NIFEdipine 10 MG CAP PER TUBE SCH (15:00)
[2022-05-06] MEDS: NIFEdipine XL 30 MG TAB PO SCH (15:12)
[2022-05-06] MEDS: Escitalopram Oxalate 20 mg Tablet PO SCH (21:30)
[2022-05-06] MEDS: Atorvastatin Calcium 40 MG TAB PO SCH (21:30)
[2022-05-06] MEDS: Mirtazapine 15 MG TAB PO SCH (21:30)
[2022-05-06] MEDS: NIFEdipine 10 MG CAP PER TUBE SCH (21:31)
[2022-05-06] MEDS: Acetaminophen 325 MG TAB PO PRN (21:31)
[2022-05-06] MEDS ORDERED: Bisacodyl 10 MG SUPP PR PRN (22:19)
[2022-05-07] MEDS: Doxycycline 100 MG in Sodium Chloride 0.9% 100 ML IVPB SCH ×2 (02:27→14:36)
[2022-05-07 07:31] LABS: #Lymphocytes 0.7 thou/uL (1.20-3.40); #Monocytes 0.7 thou/uL (0.11-0.59); #Neutrophils 10.3 thou/uL (1.40-6.50); %Eosinophils 0.1 % (0.0-10.0); %Lymphocytes 5.8 % (21.0-51.0); %Monocytes 6.3 % (0.0-10.0); %Neutrophils 87.8 % (42.0-75.0); Hemoglobin 7.9 g/dL (14.0-18.0); Mean Corpuscular Hemoglobin 28.7 pg (27.0-31.0); Mean Corpuscular Volume 89.5 fl (78.0-98.0); Mean Platelet Volume 9.8 fL (7.4-10.4); Platelet Count 138 10x3/uL (130-400); RBC Distribution Width 20.2 % (11.5-14.5); Red Blood Cell (RBC) Count 2.75 mill/uL (4.70-6.10); White Blood Cell (WBC) Count 11.8 10x3/uL (4.8-10.8)
[2022-05-07] MEDS: Morphine 2 MG/ML VIAL SLOW IVP PRN (09:23)
[2022-05-07] MEDS: Famotidine 20 MG TAB PO SCH (09:56)
[2022-05-07] MEDS: Metoprolol Tartrate 50 MG TAB PO SCH ×2 (09:56→21:40)
[2022-05-07] MEDS: NIFEdipine 10 MG CAP PER TUBE SCH ×3 (09:56→21:39)
[2022-05-07] MEDS: Aspirin 325 MG TAB PO SCH (09:56)
[2022-05-07] MEDS: Heparin 5,000 UNITS/ML VIAL SC SCH ×3 (09:56→21:40)
[2022-05-07] MEDS: levETIRAcetam 500 mg/5 ml Oral Solution PO SCH ×2 (09:56→21:41)
[2022-05-07] MEDS: Megestrol Acetate 800 MG/20 ML UDCUP PO SCH (09:57)
[2022-05-07] MEDS: Mirtazapine 15 MG TAB PO SCH (21:39)
[2022-05-07] MEDS: Escitalopram Oxalate 20 mg Tablet PO SCH (21:39)
[2022-05-07] MEDS: Atorvastatin Calcium 20 MG TAB PO SCH (21:40)
[2022-05-07] MEDS: Acetaminophen 325 MG TAB PO PRN (21:41)
[2022-05-08] MEDS: Doxycycline 100 MG in Sodium Chloride 0.9% 100 ML IVPB SCH (03:13)
[2022-05-08] MEDS: levETIRAcetam 500 mg/5 ml Oral Solution PO SCH ×2 (08:30→20:14)
[2022-05-08] MEDS: NIFEdipine 10 MG CAP PER TUBE SCH ×4 (08:30→20:14)
[2022-05-08] MEDS: Megestrol Acetate 800 MG/20 ML UDCUP PO SCH (08:30)
[2022-05-08] MEDS: Famotidine 20 MG TAB PO SCH (08:32)
[2022-05-08] MEDS: Heparin 5,000 UNITS/ML VIAL SC SCH ×3 (08:32→20:13)
[2022-05-08] MEDS: Metoprolol Tartrate 50 MG TAB PO SCH ×2 (08:32→20:14)
[2022-05-08] MEDS: Aspirin 325 MG TAB PO SCH (08:32)
[2022-05-08] MEDS ORDERED: Mineral Oil ENEMA PR SCH (12:45)
[2022-05-08] MEDS ORDERED: Senokot S 8.6-50 MG TAB PER TUBE SCH (13:15)
[2022-05-08] MEDS: Atorvastatin Calcium 20 MG TAB PO SCH (20:13)
[2022-05-08] MEDS: Escitalopram Oxalate 20 mg Tablet PO SCH (20:13)
[2022-05-08] MEDS: Mirtazapine 15 MG TAB PO SCH (20:13)
[2022-05-08] MEDS: Senokot S 8.6-50 MG TAB PER TUBE SCH (20:14)
[2022-05-09 06:18] LABS: Hemoglobin 7.1 g/dL (14.0-18.0); Platelet Count 88 10x3/uL (130-400)
[2022-05-09 06:44] LABS: Phosphorus 1.8 mg/dL (2.3-4.7)
[2022-05-09] MEDS: Megestrol Acetate 800 MG/20 ML UDCUP PO SCH (09:29)
[2022-05-09] MEDS: Aspirin 325 MG TAB PO SCH (09:29)
[2022-05-09] MEDS: Senokot S 8.6-50 MG TAB PER TUBE SCH ×2 (09:29→23:19)
[2022-05-09] MEDS: Heparin 5,000 UNITS/ML VIAL SC SCH ×2 (09:29→14:52)
[2022-05-09] MEDS: levETIRAcetam 500 mg/5 ml Oral Solution PO SCH ×2 (09:29→23:16)
[2022-05-09] MEDS: Famotidine 20 MG TAB PO SCH (09:29)
[2022-05-09] MEDS: Metoprolol Tartrate 50 MG TAB PO SCH ×2 (09:30→23:17)
[2022-05-09] MEDS: NIFEdipine 10 MG CAP PER TUBE SCH ×3 (09:30→23:19)
[2022-05-09] MEDS: Morphine 2 MG/ML VIAL SLOW IVP PRN (09:46)
[2022-05-09] MEDS ORDERED: Iopamidol-370 76% 500 ML 1 ML ONE (12:11)
[2022-05-09] MEDS: Ondansetron PF 4 MG/2 ML Vial IVP PRN (15:42)
[2022-05-09] MEDS: Metoclopramide HCl 10 MG/2 ML VIAL IVP SCH (18:17)
[2022-05-09 20:02] LABS: Base Excess (BEa) -17.2 mEq/L (-2.0 to +3.0); Calcium, Ionized (arterial) 1.04 mmol/L (1.12-1.30); Carboxyhemoglobin (COHb) 0.4 gm% (0.0-3.0); Hemoglobin (Hb) 7.5 g/dL (14.0-18.0); O2 Tension (PaO2), arterial 91.4 mmHg (> 70.0); Potassium - ABG Lab 4.32 mmol/L (3.70-5.30)
[2022-05-09 20:05] LABS: pH, Arterial 7.19 (7.35-7.45)
[2022-05-09 20:06] LABS: Actual Bicarbonate (HCO3a) 9.4 mEq/L (22-28); Puncture Site LRA
[2022-05-09 20:55] LABS: Hemoglobin 6.7 g/dL (14.0-18.0); Mean Corpuscular HGB CONC 30.5 g/dL (32.0-36.0); Mean Corpuscular Hemoglobin 28.3 pg (27.0-31.0); Mean Corpuscular Volume 93.1 fl (78.0-98.0); Mean Platelet Volume 10.3 fL (7.4-10.4); Platelet Count 108 10x3/uL (130-400); RBC Distribution Width 19.9 % (11.5-14.5); Red Blood Cell (RBC) Count 2.35 mill/uL (4.70-6.10); White Blood Cell (WBC) Count 11.5 10x3/uL (4.8-10.8)
[2022-05-09] MEDS ORDERED: Sodium Chloride 0.9% 1,000 ML IV SCH ×2 (21:00→22:45)
[2022-05-09] MEDS ORDERED: Vancomycin 1 GM in Premix Bag 1 BAG IVPB SCH (21:00)
[2022-05-09] MEDS ORDERED: Sodium Bicarb 50 MEQ/50 ML VIAL ONE (21:02)
[2022-05-09] MEDS ORDERED: Sodium Bicarbonate 100 MEQ in Dextrose 5% in Water 1,000 ML IV SCH (21:15)
[2022-05-09 21:18] LABS: Anisocytosis SLIGHT = 6-15 cells (100X) (0-5/hpf); Band 21 % (5-11); Burr Cells SLIGHT = 2-5 cells (100X) (0-1/hpf); Lymphocytes 4 % (21-51); MDiff Complete? YES; Monocytes 2 % (0-10); Neutrophil 73 % (42-75); Nucleated RBC 2 % (0); Platelet Morphology Comment Appears Decreased; Schistocytes SLIGHT = 2-5 cells (100X) (0-1/hpf); Vacuoles SLIGHT
[2022-05-09 21:24] LABS: Lactic Acid 12.8 mmol/L (0.5-2.2)
[2022-05-09] MEDS ORDERED: Sodium Bicarb 50 MEQ/50 ML VIAL IVP SCH (21:30)
[2022-05-09] MEDS ORDERED: Sodium Bicarbonate 150 MEQ in Dextrose 5% in Water 1,000 ML IV SCH ×2 (21:30→22:00)
[2022-05-09 21:33] LABS: Chloride 106 mmol/L (98-107); Potassium 4.9 mmol/L (3.5-5.1); Sodium 136 mmol/L (136-145)
[2022-05-09 21:34] LABS: Calcium 7.7 mg/dL (7.8-10.44); Glucose 93 mg/dL (80-115)
[2022-05-09 21:38] LABS: Calc. Creatinine Clearance 20 mL/min (70-130); Estimated GFR 33
[2022-05-09 21:39] LABS: BUN (Urea Nitrogen) 41 mg/dL (8.4-25.7); Carbon Dioxide Less than 8 mmol/L (23-31)
[2022-05-09] MEDS ORDERED: Cefepime 2 GM in Sodium Chloride 0.9% 100 ML IVPB SCH (22:00)
[2022-05-09] MEDS ORDERED: Meropenem 1 GM in Sodium Chloride 0.9% 100 ML IVPB SCH (22:45)
[2022-05-09] MEDS ORDERED: Sodium Bicarb 50 MEQ/50 ML Abboject 8.4% SYRINGE IVP SCH (22:45)
[2022-05-09] MEDS ORDERED: Electrolyte Replacement Protocol 1 EACH FS SCH (23:00)
[2022-05-09] MEDS: Atorvastatin Calcium 20 MG TAB PO SCH (23:15)
[2022-05-09] MEDS: Escitalopram Oxalate 20 mg Tablet PO SCH (23:16)
[2022-05-09] MEDS: Mirtazapine 15 MG TAB PO SCH (23:19)
[2022-05-09] MEDS: Sodium Chloride 0.9% 1,000 ML IV SCH (23:56)
[2022-05-10] LABS: Magnesium 1.7 mg/dL (1.6-2.6)
[2022-05-10 00:11] LABS: Phosphorus 4.6 mg/dL (2.3-4.7)
[2022-05-10 00:38] LABS: Mean Corpuscular HGB CONC 31.2 g/dL (32.0-36.0); Mean Corpuscular Hemoglobin 28.9 pg (27.0-31.0); Mean Corpuscular Volume 92.8 fl (78.0-98.0); Mean Platelet Volume 10.7 fL (7.4-10.4); Platelet Count 82 10x3/uL (130-400); Red Blood Cell (RBC) Count 2.06 mill/uL (4.70-6.10); White Blood Cell (WBC) Count 10.1 10x3/uL (4.8-10.8)
[2022-05-10 00:49] LABS: Base Excess (BEa) -11.9 mEq/L (-2.0 to +3.0); Calcium, Ionized (arterial) 0.93 mmol/L (1.12-1.30); Carboxyhemoglobin (COHb) 0.7 gm% (0.0-3.0); Hemoglobin (Hb) 6.3 g/dL (14.0-18.0); O2 Tension (PaO2), arterial 89.2 mmHg (> 70.0); Potassium - ABG Lab 3.59 mmol/L (3.70-5.30); pH, Arterial 7.41 (7.35-7.45)
[2022-05-10 00:51] LABS: Anisocytosis SLIGHT = 6-15 cells (100X) (0-5/hpf); Band 29 % (5-11); Burr Cells SLIGHT = 2-5 cells (100X) (0-1/hpf); Lymphocytes 3 % (21-51); MDiff Complete? YES; Monocytes 2 % (0-10); Neutrophil 66 % (42-75); Nucleated RBC 4 % (0); Platelet Morphology Comment Appears Decreased; Schistocytes SLIGHT = 2-5 cells (100X) (0-1/hpf); Vacuoles SLIGHT
[2022-05-10 00:53] LABS: ALV-art Gradient 115.335 mmHg (0-20); Actual Bicarbonate (HCO3a) 11.6 mEq/L (22-28); CO2 Tension 18.9 mmHg (35.0-45.0); Puncture Site LRA
[2022-05-10 01:04] LABS: ALT (SGPT) 85 U/L (8-55); AST (SGOT) 137 U/L (5-34); Albumin 1.6 g/dL (3.4-4.8); Alkaline Phosphatase 269 U/L (40-110); Bilirubin, Direct 0.5 mg/dL (0.1-0.3); Bilirubin, Total 0.9 mg/dL (0.2-1.2); Protein, Total 4.3 g/dL (5.8-8.1)
[2022-05-10 01:18] LABS: Bacteria/HPF None Seen HPF (None Seen); Bilirubin Negative (Negative); Blood, Urine 2+ (Negative); CAUTI Indications for Culture Alt mental st,lethar; Clarity Clear (Clear); Glucose, Urine (Dipstick) Normal (Negative); Ketone, Urine Negative (Negative); Leukocyte Negative Leu/uL (Negative); Nitrite Negative (Negative); Protein, Urine (Dipstick) 50 mg/dL (Neg-Trace); Squamous Epithelial 0-3 HPF (0-3); Transitional Epithelial 0-3 HPF (None Seen); Urobilinogen Normal mg/dL (Less than 2); WBC/HPF 0-3 HPF (0-3)
[2022-05-10 01:19] LABS: Urine Culture Reflex No No
[2022-05-10] MEDS ORDERED: Magnesium 2 GM/50 ML(in water) 2 GM in Premix Bag 1 BAG IVPB SCH (02:00)
[2022-05-10] MEDS: Metoclopramide HCl 10 MG/2 ML VIAL IVP SCH (02:41)
[2022-05-10] MEDS ORDERED: Pantoprazole 40 MG VIAL IVP SCH (04:15)
[2022-05-10 05:16] LABS: Hemoglobin 6.5 g/dL (14.0-18.0); Mean Corpuscular HGB CONC 32.4 g/dL (32.0-36.0); Mean Corpuscular Hemoglobin 29.4 pg (27.0-31.0); Mean Corpuscular Volume 90.9 fl (78.0-98.0); Mean Platelet Volume 10.3 fL (7.4-10.4); Platelet Count 82 10x3/uL (130-400); RBC Distribution Width 18.6 % (11.5-14.5); Red Blood Cell (RBC) Count 2.21 mill/uL (4.70-6.10)
[2022-05-10] MEDS: Pantoprazole 80 MG in Sodium Chloride 0.9% 100 ML IVPB SCH ×2 (05:30→19:41)
[2022-05-10 05:31] LABS: Lactic Acid 11.6 mmol/L (0.5-2.2)
[2022-05-10 05:36] LABS: ALT (SGPT) 138 U/L (8-55); AST (SGOT) 244 U/L (5-34); Albumin 1.7 g/dL (3.4-4.8); Alkaline Phosphatase 270 U/L (40-110); Anion Gap 20 mmol/L (10-20); BUN (Urea Nitrogen) 40 mg/dL (8.4-25.7); Bilirubin, Total 0.9 mg/dL (0.2-1.2); Calc. Creatinine Clearance 22 mL/min (70-130); Calcium 6.4 mg/dL (7.8-10.44); Carbon Dioxide 12 mmol/L (23-31); Chloride 106 mmol/L (98-107); Estimated GFR 37; Globulin 2.5 g/dL (2.4-3.5); Glucose 68 mg/dL (80-115); Lipase 43 U/L (8-78); Potassium 3.4 mmol/L (3.5-5.1); Protein, Total 4.2 g/dL (5.8-8.1); Sodium 135 mmol/L (136-145)
[2022-05-10 05:46] LABS: Band 34 % (5-11); Burr Cells SLIGHT = 2-5 cells (100X) (0-1/hpf); Lymphocytes 2 % (21-51); MDiff Complete? YES; Monocytes 1 % (0-10); Neutrophil 63 % (42-75); Nucleated RBC 9 % (0); Platelet Morphology Comment Appears Decreased; Schistocytes SLIGHT = 2-5 cells (100X) (0-1/hpf); White Blood Cell (WBC) Count 8.1 10x3/uL (4.8-10.8)
[2022-05-10] MEDS ORDERED: Calcium Gluc 4.6 MEQ/10 ML (100 MG/ML) SLOW IVP SCH (05:49)
[2022-05-10] MEDS: Sodium Chloride 0.9% 1,000 ML IV SCH (05:58)
[2022-05-10] MEDS ORDERED: Potassium Bicarbonate/Cit Ac 20 MEQ TAB PER TUBE SCH (06:00)
[2022-05-10 06:04] LABS: Fibrinogen 456 mg/dL (253-463); INR-International Normal Ratio 2.1; Prothrombin Time 24.9 sec (12.0-14.7)
[2022-05-10 06:29] LABS: PTT Greater than 250.0 sec (22.9-36.1)
[2022-05-10] MEDS ORDERED: Sodium Bicarbonate 150 MEQ in Dextrose 5% in Water 1,000 ML IV SCH ×2 (08:00→20:30)
[2022-05-10] MEDS ORDERED: Phytonadione 10 MG/ML AMP SLOW IVP SCH (08:15)
[2022-05-10] MEDS: Megestrol Acetate 800 MG/20 ML UDCUP PO SCH (08:29)
[2022-05-10] MEDS: Senokot S 8.6-50 MG TAB PER TUBE SCH ×2 (08:29→23:04)
[2022-05-10 08:37] LABS: Magnesium 1.9 mg/dL (1.6-2.6)
[2022-05-10] MEDS ORDERED: Morphine 2 MG/ML VIAL SLOW IVP PRN (08:44)
[2022-05-10] MEDS ORDERED: Phytonadione 10 MG in Sodium Chloride 0.9% 50 ML IVPB SCH (08:45)
[2022-05-10] MEDS: levETIRAcetam 500 MG/5 ML VIAL SLOW IVP SCH ×2 (08:57→22:30)
[2022-05-10] MEDS: Vancomycin HCl 750 MG in Sodium Chloride 0.9% 250 ML 250 ML IVPB SCH ×2 (08:57→22:30)
[2022-05-10] MEDS: Meropenem 500 MG in Sodium Chloride 0.9% 100 ML IVPB SCH ×2 (09:38→19:46)
[2022-05-10] MEDS ORDERED: CALCIUM GLUC 1 GM/NS 50 ML 1 GM in Premix Bag 1 BAG IVPB SCH (09:45)
[2022-05-10] MEDS ORDERED: NOREPINEPHRINE 8 MG/250 ML-D5W 250 ML ONE (11:32)
[2022-05-10] MEDS: NOREPINEPHRINE 8 MG/250 ML-D5W 250 ML IVPB SCH (11:33)
[2022-05-10 13:18] LABS: INR-International Normal Ratio 1.8
[2022-05-10 13:32] LABS: Hemoglobin 9.5 g/dL (14.0-18.0); Mean Corpuscular HGB CONC 34.8 g/dL (32.0-36.0); Mean Corpuscular Hemoglobin 30.8 pg (27.0-31.0); Mean Corpuscular Volume 88.5 fl (78.0-98.0); Mean Platelet Volume 11.1 fL (7.4-10.4); Platelet Count 59 10x3/uL (130-400); RBC Distribution Width 16.6 % (11.5-14.5); Red Blood Cell (RBC) Count 3.08 mill/uL (4.70-6.10); White Blood Cell (WBC) Count 7.8 10x3/uL (4.8-10.8)
[2022-05-10 13:57] LABS: PTT 155.7 sec (22.9-36.1)
[2022-05-10 14:11] LABS: Prothrombin Time 21.7 sec (12.0-14.7)
[2022-05-10 14:42] LABS: Band 36 % (5-11); Eosinophils 1 % (0-10); Lymphocytes 7 % (21-51); MDiff Complete? YES; Metamyelocyte 1 % (0-0); Monocytes 4 % (0-10); Neutrophil 51 % (42-75); Platelet Morphology Comment Appears Decreased; RBC Morphology Normal
[2022-05-10 14:56] VITALS: BMI 18.3
[2022-05-10] MEDS ORDERED: Propofol 1,000 MG/100 ML VIAL IV ONE (17:40)
[2022-05-10] MEDS ORDERED: Rocuronium Bromide 10 MG/ML (10ML VIAL) ONE (17:51)
[2022-05-10] MEDS ORDERED: Rocuronium Bromide 10 MG/ML (10ML VIAL) IVP SCH (18:00)
[2022-05-10] MEDS ORDERED: Midazolam In 0.9 % NaCl/PF 100 ML IVPB SCH (18:30)
[2022-05-10 18:41] LABS: Platelet Count 42 10x3/uL (130-400)
[2022-05-10 18:52] LABS: INR-International Normal Ratio 1.6; Prothrombin Time 19.2 sec (12.0-14.7)
[2022-05-10 18:58] LABS: Anion Gap 21 mmol/L (10-20); BUN (Urea Nitrogen) 39 mg/dL (8.4-25.7); Calc. Creatinine Clearance 23 mL/min (70-130); Carbon Dioxide 17 mmol/L (23-31); Chloride 104 mmol/L (98-107); Estimated GFR 33; Glucose 74 mg/dL (80-115); Potassium 2.9 mmol/L (3.5-5.1); Sodium 139 mmol/L (136-145)
[2022-05-10 19:03] LABS: Lactic Acid 5.8 mmol/L (0.5-2.2)
[2022-05-10 19:31] LABS: PTT 126.4 sec (22.9-36.1)
[2022-05-10 20:12] LABS: Base Excess (BEa) -2.1 mEq/L (-2.0 to +3.0); CO2 Tension 47.9 mmHg (35.0-45.0); Calcium, Ionized (arterial) 0.92 mmol/L (1.12-1.30); Hemoglobin (Hb) 8.8 g/dL (14.0-18.0); Potassium - ABG Lab 2.73 mmol/L (3.70-5.30); pH, Arterial 7.32 (7.35-7.45)
[2022-05-10 20:15] LABS: ALV-art Gradient 600.425 mmHg (0-20); Puncture Site line
[2022-05-10] MEDS ORDERED: DISCONTINUE PREVIOUS NARCOTIC PAIN MEDICATIONS AND BENZODIAZEPINES FS SCH (20:15)
[2022-05-10] MEDS ORDERED: Fentanyl CADD 100 ML IV SCH (20:15)
[2022-05-10] MEDS ORDERED: Lorazepam 2 MG/ML VIAL SLOW IVP PRN (20:15)
[2022-05-10] MEDS ORDERED: Morphine 4 MG/ML VIAL SLOW IVP PRN (20:15)
[2022-05-10] MEDS ORDERED: Propofol BOLUS 1,000 MG/100 ML VIAL IV PRN (20:15)
[2022-05-10] MEDS ORDERED: Propofol 1,000 MG/100 ML VIAL IV PRN (20:15)
[2022-05-10] MEDS ORDERED: Fentanyl BOLUS 250 ML IVPB PRN (20:15)
[2022-05-10] MEDS ORDERED: Potassium Chloride 10 MEQ in Premix Bag 1 BAG IVPB SCH ×2 (20:30→22:30)
[2022-05-11] MEDS: Pantoprazole 80 MG in Sodium Chloride 0.9% 100 ML IVPB SCH ×3 (01:45→21:48)
[2022-05-11 03:36] LABS: Hemoglobin 7.3 g/dL (14.0-18.0); Mean Corpuscular HGB CONC 34.8 g/dL (32.0-36.0); Mean Corpuscular Hemoglobin 30.9 pg (27.0-31.0); Mean Corpuscular Volume 88.9 fl (78.0-98.0); Mean Platelet Volume 10.2 fL (7.4-10.4); Platelet Count 52 10x3/uL (130-400); Red Blood Cell (RBC) Count 2.36 mill/uL (4.70-6.10); White Blood Cell (WBC) Count 3.1 10x3/uL (4.8-10.8)
[2022-05-11 03:46] LABS: INR-International Normal Ratio 1.5; Prothrombin Time 18.7 sec (12.0-14.7)
[2022-05-11 03:49] LABS: PTT 109.5 sec (22.9-36.1)
[2022-05-11 04:02] LABS: ALT (SGPT) 97 U/L (8-55); AST (SGOT) 220 U/L (5-34); Albumin 2.1 g/dL (3.4-4.8); Alkaline Phosphatase 200 U/L (40-110); Anion Gap 19 mmol/L (10-20); BUN (Urea Nitrogen) 39 mg/dL (8.4-25.7); Bilirubin, Total 2.5 mg/dL (0.2-1.2); Calc. Creatinine Clearance 22 mL/min (70-130); Calcium 6.8 mg/dL (7.8-10.44); Carbon Dioxide 21 mmol/L (23-31); Chloride 103 mmol/L (98-107); Estimated GFR 31; Globulin 2.6 g/dL (2.4-3.5); Glucose 78 mg/dL (80-115); Potassium 2.9 mmol/L (3.5-5.1); Protein, Total 4.7 g/dL (5.8-8.1); Sodium 140 mmol/L (136-145)
[2022-05-11 04:23] LABS: Magnesium 1.9 mg/dL (1.6-2.6); Phosphorus 3.6 mg/dL (2.3-4.7)
[2022-05-11] MEDS ORDERED: Potassium Chloride 20 MEQ in Premix Bag 1 BAG IVPB SCH (04:45)
[2022-05-11] MEDS ORDERED: Potassium Chloride 40 MEQ in Premix Bag 1 BAG IVPB SCH (04:45)
[2022-05-11 04:58] LABS: Anisocytosis SLIGHT = 6-15 cells (100X) (0-5/hpf); Band 29 % (5-11); Crenated RBC MODERATE= 6-15 cells (100X) (None Seen); Lymphocytes 10 % (21-51); MDiff Complete? YES; Metamyelocyte 6 % (0-0); Myelocyte 1 % (0-0); Neutrophil 54 % (42-75); Platelet Morphology Comment Appears Decreased; Toxic Granulation SLIGHT; Vacuoles SLIGHT
[2022-05-11] MEDS ORDERED: Calcium Gluc 4.6 MEQ/10 ML (100 MG/ML) SLOW IVP SCH (05:15)
[2022-05-11 05:28] LABS: BF Color Brown; Clarity Cloudy/Turbid (Clear); Tube # EDTA
[2022-05-11] MEDS: Meropenem 500 MG in Sodium Chloride 0.9% 100 ML IVPB SCH ×2 (06:02→18:42)
[2022-05-11] MEDS: NOREPINEPHRINE 8 MG/250 ML-D5W 250 ML IVPB SCH ×3 (10:29→20:34)
[2022-05-11] MEDS: levETIRAcetam 500 MG/5 ML VIAL SLOW IVP SCH ×2 (10:29→21:11)
[2022-05-11] MEDS: Senokot S 8.6-50 MG TAB PER TUBE SCH ×2 (10:57→21:46)
[2022-05-11 10:59] LABS: Vancomycin, Trough 34.5 ug/mL
[2022-05-11] MEDS: Megestrol Acetate 800 MG/20 ML UDCUP PO SCH (11:24)
[2022-05-11] MEDS: Vancomycin HCl 750 MG in Sodium Chloride 0.9% 250 ML 250 ML IVPB SCH (11:25)
[2022-05-11 11:31] LABS: Albumin 1.9 g/dL (3.4-4.8); Anion Gap 21 mmol/L (10-20); BUN (Urea Nitrogen) 40 mg/dL (8.4-25.7); BUN/Creatinine Ratio 17.47; Calc. Creatinine Clearance 23 mL/min (70-130); Carbon Dioxide 19 mmol/L (23-31); Chloride 102 mmol/L (98-107); Estimated GFR 30; Glucose 60 mg/dL (80-115); Phosphorus 4.3 mg/dL (2.3-4.7); Potassium 3.5 mmol/L (3.5-5.1); Sodium 138 mmol/L (136-145)
[2022-05-11 11:37] LABS: Hemoglobin 8.5 g/dL (14.0-18.0)
[2022-05-11 11:40] LABS: Calcium 6.8 mg/dL (7.8-10.44)
[2022-05-11] MEDS ORDERED: Calcium Carbonate 500 MG ChewTAB PO SCH (11:45)
[2022-05-11] MEDS ORDERED: Cholecalciferol 1,000 UNITS (25 MCG) TAB PO SCH (11:45)
[2022-05-11] MEDS ORDERED: Vancomycin Dose by Levels Sliding Scale (Wt <71) FS SCH (12:30)
[2022-05-11] MEDS ORDERED: HOLD VANCOMYCIN FOR LEVEL >20 IVP SCH (12:30)
[2022-05-11] MEDS ORDERED: Potassium Bicarbonate/Cit Ac 20 MEQ TAB PER TUBE SCH (13:15)
[2022-05-11] MEDS ORDERED: Midazolam In 0.9 % NaCl/PF 100 ML IVPB SCH (16:45)
[2022-05-11 19:19] LABS: Actual Bicarbonate (HCO3v) 21 mEq/L (22-28); Base Excess -5.9 mEq/L (-2.0 to +3.0); Calcium, Ionized (venous) 0.84 mmol/L (1.16-1.32); Chloride (VBG) 99 mmol/L (98-106); Hemoglobin (Hb) 8.8 g/dL (12.6-17.4); Potassium (VBG) 3.65 mmol/L (3.70-5.30); Sodium 134.7 mmol/L (133-146); pH (venous) 7.28 (7.32-7.43)
[2022-05-11] MEDS ORDERED: Dextrose 5% in Water 1,000 ML IV PRN (20:15)
[2022-05-11 20:51] LABS: Glucose 61 mg/dL (80-115)
[2022-05-11] MEDS: Calcium Carbonate 500 MG ChewTAB PO SCH (21:12)
[2022-05-11] MEDS: Dextrose 5 % And 0.9 % NaCl 1,000 ML IV SCH (22:20)
[2022-05-11] MEDS ORDERED: Digoxin 0.5 MG/2 ML AMP SLOW IVP SCH ×2 (23:15→23:45)
[2022-05-12 00:28] LABS: Actual Bicarbonate (HCO3a) 20.4 mEq/L (22-28); Base Excess (BEa) -5.2 mEq/L (-2.0 to +3.0); CO2 Tension 40.2 mmHg (35.0-45.0); Calcium, Ionized (arterial) 0.84 mmol/L (1.12-1.30); Carboxyhemoglobin (COHb) 0.6 gm% (0.0-3.0); Hemoglobin (Hb) 7.3 g/dL (14.0-18.0); Potassium - ABG Lab 3.99 mmol/L (3.70-5.30); pH, Arterial 7.32 (7.35-7.45)
[2022-05-12 00:29] LABS: O2 Tension (PaO2), arterial 50.5 mmHg (> 70.0); Puncture Site LINE
[2022-05-12 00:41] LABS: Hemoglobin 6.7 g/dL (14.0-18.0); Mean Corpuscular Hemoglobin 32.1 pg (27.0-31.0); Mean Corpuscular Volume 91.8 fl (78.0-98.0); Mean Platelet Volume 11.1 fL (7.4-10.4); Platelet Count 37 10x3/uL (130-400); RBC Distribution Width 16.3 % (11.5-14.5); Red Blood Cell (RBC) Count 2.07 mill/uL (4.70-6.10); White Blood Cell (WBC) Count 5.7 10x3/uL (4.8-10.8)
[2022-05-12 00:55] LABS: INR-International Normal Ratio 1.4; Prothrombin Time 17.8 sec (12.0-14.7)
[2022-05-12 00:57] LABS: Lactic Acid 10.2 mmol/L (0.5-2.2); PTT 110.4 sec (22.9-36.1)
[2022-05-12 01:03] LABS: Anion Gap 23 mmol/L (10-20); BUN (Urea Nitrogen) 42 mg/dL (8.4-25.7); Calc. Creatinine Clearance 20 mL/min (70-130); Carbon Dioxide 17 mmol/L (23-31); Chloride 100 mmol/L (98-107); Estimated GFR 25; Glucose 63 mg/dL (80-115); Magnesium 1.7 mg/dL (1.6-2.6); Sodium 136 mmol/L (136-145)
[2022-05-12 01:04] LABS: Band 43 % (5-11); Lymphocytes 13 % (21-51); MDiff Complete? YES; Metamyelocyte 5 % (0-0); Neutrophil 39 % (42-75); Nucleated RBC 7 % (0); Platelet Morphology Comment Appears Decreased; Schistocytes SLIGHT = 2-5 cells (100X) (0-1/hpf); Toxic Granulation SLIGHT; Vacuoles SLIGHT
[2022-05-12 01:28] LABS: Calcium 6.4 mg/dL (7.8-10.44); Troponin I 0.786 ng/mL (< 0.028)
[2022-05-12] MEDS ORDERED: Magnesium 2 GM/50 ML(in water) 2 GM in Premix Bag 1 BAG IVPB SCH (01:30)
[2022-05-12] MEDS: Amiodarone 450 MG, Admixture Fee 1 EACH in Dextrose 5% in Water 250 ML IVPB SCH ×3 (01:42→23:13)
[2022-05-12] MEDS: NOREPINEPHRINE 8 MG/250 ML-D5W 250 ML IVPB SCH ×3 (02:08→23:13)
[2022-05-12 04:28] LABS: Hemoglobin 7.8 g/dL (14.0-18.0); Mean Corpuscular HGB CONC 34.6 g/dL (32.0-36.0); Mean Corpuscular Hemoglobin 32.2 pg (27.0-31.0); Mean Corpuscular Volume 92.9 fl (78.0-98.0); Platelet Count 37 10x3/uL (130-400); RBC Distribution Width 15.4 % (11.5-14.5); Red Blood Cell (RBC) Count 2.43 mill/uL (4.70-6.10); White Blood Cell (WBC) Count 6.6 10x3/uL (4.8-10.8)
[2022-05-12 04:36] LABS: INR-International Normal Ratio 1.5; Prothrombin Time 18.2 sec (12.0-14.7)
[2022-05-12 04:38] LABS: PTT 95.5 sec (22.9-36.1)
[2022-05-12 04:39] LABS: Base Excess (BEa) -7.6 mEq/L (-2.0 to +3.0); CO2 Tension 44.1 mmHg (35.0-45.0); Calcium, Ionized (arterial) 0.89 mmol/L (1.12-1.30); Carboxyhemoglobin (COHb) 0.3 gm% (0.0-3.0); Hemoglobin (Hb) 8.1 g/dL (14.0-18.0); O2 Tension (PaO2), arterial 66.7 mmHg (> 70.0); Potassium - ABG Lab 4.16 mmol/L (3.70-5.30); pH, Arterial 7.25 (7.35-7.45)
[2022-05-12 04:41] LABS: ALV-art Gradient 412.925 mmHg (0-20); Puncture Site ART
[2022-05-12 04:46] LABS: ALT (SGPT) 116 U/L (8-55); AST (SGOT) 304 U/L (5-34); Albumin 2.1 g/dL (3.4-4.8); Alkaline Phosphatase 193 U/L (40-110); Anion Gap 23 mmol/L (10-20); BUN (Urea Nitrogen) 42 mg/dL (8.4-25.7); Bilirubin, Total 2.2 mg/dL (0.2-1.2); Calc. Creatinine Clearance 20 mL/min (70-130); Carbon Dioxide 17 mmol/L (23-31); Chloride 99 mmol/L (98-107); Estimated GFR 25; Globulin 2.4 g/dL (2.4-3.5); Glucose 75 mg/dL (80-115); Potassium 4.1 mmol/L (3.5-5.1); Protein, Total 4.5 g/dL (5.8-8.1); Sodium 135 mmol/L (136-145)
[2022-05-12 04:59] LABS: Band 46 % (5-11); Lymphocytes 8 % (21-51); MDiff Complete? YES; Metamyelocyte 3 % (0-0); Myelocyte 1 % (0-0); Neutrophil 42 % (42-75); Nucleated RBC 1 % (0); Platelet Morphology Comment Appears Decreased; Schistocytes SLIGHT = 2-5 cells (100X) (0-1/hpf)
[2022-05-12 05:02] LABS: Calcium 6.4 mg/dL (7.8-10.44)
[2022-05-12] MEDS: Meropenem 500 MG in Sodium Chloride 0.9% 100 ML IVPB SCH ×2 (06:17→18:26)
[2022-05-12] MEDS ORDERED: Cholecalciferol 1,000 UNITS (25 MCG) TAB PO SCH (09:00)
[2022-05-12] MEDS: Calcium Carbonate 500 MG ChewTAB PO SCH ×2 (09:17→20:55)
[2022-05-12] MEDS: levETIRAcetam 500 MG/5 ML VIAL SLOW IVP SCH ×2 (09:17→20:55)
[2022-05-12] MEDS: Senokot S 8.6-50 MG TAB PER TUBE SCH ×2 (09:19→21:14)
[2022-05-12] MEDS: Megestrol Acetate 800 MG/20 ML UDCUP PO SCH (09:19)
[2022-05-12] MEDS: Pantoprazole 80 MG in Sodium Chloride 0.9% 100 ML IVPB SCH (09:34)
[2022-05-12 12:01] LABS: Vancomycin, Random 28.9 ug/mL (See Comment)
[2022-05-12 14:36] LABS: Heparin-Induced Ab (HITA) 0.152 OD (0.000-0.400)
[2022-05-12] MEDS: Dextrose 5 % And 0.9 % NaCl 1,000 ML IV SCH (18:26)
[2022-05-12] MEDS ORDERED: Sodium Bicarbonate 150 MEQ in Dextrose 5% in Water 1,000 ML IV SCH (19:30)
[2022-05-12] MEDS ORDERED: CALCIUM GLUC 1 GM/NS 50 ML 1 GM in Premix Bag 1 BAG IVPB SCH (20:00)
[2022-05-13] MEDS: Pantoprazole 80 MG in Sodium Chloride 0.9% 100 ML IVPB SCH (00:53)
[2022-05-13 02:05] VITALS: BP 113/52
[2022-05-13 04:15] LABS: Hemoglobin 5.7 g/dL (14.0-18.0); Mean Corpuscular HGB CONC 34.4 g/dL (32.0-36.0); Mean Corpuscular Hemoglobin 32.8 pg (27.0-31.0); Mean Corpuscular Volume 95.4 fl (78.0-98.0); Mean Platelet Volume 8.6 fL (7.4-10.4); Platelet Count 69 10x3/uL (130-400); RBC Distribution Width 15.9 % (11.5-14.5); Red Blood Cell (RBC) Count 1.73 mill/uL (4.70-6.10); White Blood Cell (WBC) Count 9.3 10x3/uL (4.8-10.8)
[2022-05-13 04:17] LABS: INR-International Normal Ratio 1.7; Prothrombin Time 21.1 sec (12.0-14.7)
[2022-05-13 04:19] LABS: PTT 90.9 sec (22.9-36.1)
[2022-05-13 04:27] LABS: ALT (SGPT) 379 U/L (8-55); AST (SGOT) 1280 U/L (5-34); Albumin 1.9 g/dL (3.4-4.8); Alkaline Phosphatase 203 U/L (40-110); Anion Gap 33 mmol/L (10-20); BUN (Urea Nitrogen) 46 mg/dL (8.4-25.7); Bilirubin, Total 2.4 mg/dL (0.2-1.2); Calc. Creatinine Clearance 20 mL/min (70-130); Chloride 98 mmol/L (98-107); Estimated GFR 22; Globulin 2.4 g/dL (2.4-3.5); Potassium 5.7 mmol/L (3.5-5.1); Protein, Total 4.3 g/dL (5.8-8.1); Sodium 134 mmol/L (136-145)
[2022-05-13 04:38] LABS: Calcium 6.8 mg/dL (7.8-10.44); Carbon Dioxide 9 mmol/L (23-31); Glucose 26 mg/dL (80-115)
[2022-05-13 04:40] LABS: Band 26 % (5-11); Crenated RBC SLIGHT = 1-5 cells (100X) (None Seen); Lymphocytes 7 % (21-51); MDiff Complete? YES; Metamyelocyte 2 % (0-0); Neutrophil 65 % (42-75); Nucleated RBC 4 % (0); Platelet Morphology Comment Appears Decreased; Polychromasia SLIGHT = 2-3 cells (100X) (0-2/hpf)
[2022-05-13] MEDS ORDERED: Dextrose 50% Abboject 50 ML SYRINGE SLOW IVP PRN (04:45)
[2022-05-13] MEDS: NOREPINEPHRINE 8 MG/250 ML-D5W 250 ML IVPB SCH (05:16)
[2022-05-13 05:35] VITALS: TEMP 94
[2022-05-13] MEDS ORDERED: Sodium Bicarb 50 MEQ/50 ML Abboject 8.4% SYRINGE ONE (05:46)
[2022-05-13] MEDS ORDERED: EPINEPHrine 1 MG/10 ML Abboject SYRINGE ONE (05:46)
[2022-05-13] MEDS ORDERED: EPINEPHrine 4 MG in Dextrose 5% in Water 250 ML IVP SCH (06:00)
[2022-05-13 12:26] LABS: O2 Tension (PaO2), arterial 52.7 mmHg (> 70.0)
== END 2022-05-13 06:13 | disposition expired | DRG 853 ==
LOC: ERS 08:09 → ERHOLD 11:47 → OBSVTOIN 13:17 → IMCU/EMU 13:17 → ERHOLD 14:34 → T4-A 05-03 05:53 → IMCU/EMU 05-09 21:29 → CCU 05-10 05:37
PROVIDERS: ADMIT Internal Medicine; ATTEND Internal Medicine
PROC: 3E03329 Introduction of Other Anti-infective into Peripheral Vein, Percutaneous Approach (ICD-10-PCS; principal; 2022-04-30)
PROC: 0KBP0ZZ Excision of Left Hip Muscle, Open Approach (ICD-10-PCS; 2022-05-02)
PROC: 0DH63UZ Insertion of Feeding Device into Stomach, Percutaneous Approach (ICD-10-PCS; 2022-05-02)
PROC: 4A133R1 Monitoring of Arterial Saturation, Peripheral, Percutaneous Approach (ICD-10-PCS; 2022-05-09)
PROC: 0F9430Z Drainage of Gallbladder with Drainage Device, Percutaneous Approach (ICD-10-PCS; 2022-05-10)
PROC: 3E033XZ Introduction of Vasopressor into Peripheral Vein, Percutaneous Approach (ICD-10-PCS; 2022-05-10)
PROC: 30233L1 Transfusion of Nonautologous Fresh Plasma into Peripheral Vein, Percutaneous Approach (ICD-10-PCS; 2022-05-10)
PROC: 30233N1 Transfusion of Nonautologous Red Blood Cells into Peripheral Vein, Percutaneous Approach (ICD-10-PCS; 2022-05-10)
PROC: 30233R1 Transfusion of Nonautologous Platelets into Peripheral Vein, Percutaneous Approach (ICD-10-PCS; 2022-05-10)
PROC: 30233M1 Transfusion of Nonautologous Plasma Cryoprecipitate into Peripheral Vein, Percutaneous Approach (ICD-10-PCS; 2022-05-10)
PROC: 0BH17EZ Insertion of Endotracheal Airway into Trachea, Via Natural or Artificial Opening (ICD-10-PCS; 2022-05-10)
PROC: 5A1945Z Respiratory Ventilation, 24-96 Consecutive Hours (ICD-10-PCS; 2022-05-10)
PROC: 0D9670Z Drainage of Stomach with Drainage Device, Via Natural or Artificial Opening (ICD-10-PCS; 2022-05-10)
PROC: 5A12012 Performance of Cardiac Output, Single, Manual (ICD-10-PCS; 2022-05-13)
DX: A41.9 Sepsis, unspecified organism (principal); D65 Disseminated intravascular coagulation [defibrination syndrome]; E43 Unspecified severe protein-calorie malnutrition; L89.224 Pressure ulcer of left hip, stage 4; L89.324 Pressure ulcer of left buttock, stage 4; L89.154 Pressure ulcer of sacral region, stage 4; I21.4 Non-ST elevation (NSTEMI) myocardial infarction; R65.21 Severe sepsis with septic shock; G93.41 Metabolic encephalopathy; K55.059 Acute (reversible) ischemia of intestine, part and extent unspecified; J96.01 Acute respiratory failure with hypoxia; J18.9 Pneumonia, unspecified organism; N17.9 Acute kidney failure, unspecified; E87.20 Acidosis, unspecified; E87.0 Hyperosmolality and hypernatremia; K80.00 Calculus of gallbladder with acute cholecystitis without obstruction; I69.951 Hemiplegia and hemiparesis following unspecified cerebrovascular disease affecting right dominant side; E87.1 Hypo-osmolality and hyponatremia; D62 Acute posthemorrhagic anemia; N25.81 Secondary hyperparathyroidism of renal origin; R64 Cachexia; M86.9 Osteomyelitis, unspecified; Z51.5 Encounter for palliative care; Z20.822 Contact with and (suspected) exposure to COVID-19; I12.9 Hypertensive chronic kidney disease with stage 1 through stage 4 chronic kidney disease, or unspecified chronic kidney disease; N18.30 Chronic kidney disease, stage 3 unspecified; E78.5 Hyperlipidemia, unspecified; M19.90 Unspecified osteoarthritis, unspecified site; F14.10 Cocaine abuse, uncomplicated; F32.A Depression, unspecified; G40.909 Epilepsy, unspecified, not intractable, without status epilepticus; R41.841 Cognitive communication deficit; E87.8 Other disorders of electrolyte and fluid balance, not elsewhere classified; E88.09 Other disorders of plasma-protein metabolism, not elsewhere classified; D63.1 Anemia in chronic kidney disease; L89.220 Pressure ulcer of left hip, unstageable; L89.612 Pressure ulcer of right heel, stage 2; L89.121 Pressure ulcer of left upper back, stage 1; L89.112 Pressure ulcer of right upper back, stage 2; E86.0 Dehydration; K59.01 Slow transit constipation; I48.91 Unspecified atrial fibrillation; E83.51 Hypocalcemia; Y95 Nosocomial condition; Z79.82 Long term (current) use of aspirin; Z79.899 Other long term (current) drug therapy; I69.920 Aphasia following unspecified cerebrovascular disease; Z82.49 Family history of ischemic heart disease and other diseases of the circulatory system; Z82.3 Family history of stroke; Z87.891 Personal history of nicotine dependence; Z68.21 Body mass index [BMI] 21.0-21.9, adult; I46.9 Cardiac arrest, cause unspecified
CPT/HCPCS: 36415; 36416; 36430; 36600; 47533; 71045; 74018; 74177; 76705; 76770; 80048; 80053; 80202; 81001; 82306; 82553; 82805; 83605; 83690; 83735; 83970; 84100; 84134; 84145; 84484; 85014; 85018; 85025; 85049; 85060; 85384; 85610; 85730; 86850; 86900; 86901; 87040; 87070; 87086; 87205; 87811; 89051; 93005; 93010; 94002; 94003; 94760; 96361; 96365; 97139; C1769; C9113; G0378; J0171; J0282; J0610; J0611; J1160; J1644; J1953; J2185; J2250; J2272; J2405; J2704; J2765; J3370; J3370-JW; J3475; J3480; J3490; J7042; J7050; J7070; J7999; P9012; P9016; P9035; P9059; Q9967; U0002